=== PATIENT | female | born 1995 | race Caucasian/White ===

== ENCOUNTER 2016-06-05 23:49 | Emergency (ER) | payer OTHER ==
--- NOTE | 2016-06-05 23:54 | PDOC ---
Medical Decision Making - Medical Decision Making 06/05/16 23:54 Pt medically stable for L&D. *DC/Admit/Observation/Transfer Diagnosis at time of Disposition: Abdominal pain in - Discharge Dispostion Disposition: HOME Condition at time of disposition: Stable - Referrals Referrals: Chantel Cruz MD [Primary Care Provider] - Rubin Harris MD [Staff Physician] - (patient will maintain appt as scheduled for thu06/13/16 am patient will return to labor & delivery if regular painful contractios, water breaks, vaginal bleeding or decreased movement patient verbalizes clear understanding of all discharge instructions patient discharged to home stable intact & undelivered)
[2016-06-05 23:58] VITALS: PULSE 68; BMI 36.2
[2016-06-06] MEDS ORDERED: ELECTROLYTE-148 SOLN 500 ML IV SCH ×2 (00:05→01:05)
[2016-06-06 01:21] LABS: URINE APPEARANCE CLEAR; URINE BILIRUBIN NEGATIVE (NEGATIVE); URINE BLOOD NEGATIVE (NEGATIVE); URINE COLOR LTYELLOW; URINE GLUCOSE (UA) NEGATIVE (NEGATIVE); URINE KETONE NEGATIVE (NEGATIVE); URINE NITRITE NEGATIVE (NEGATIVE); URINE PROTEIN NEGATIVE (NEGATIVE); URINE UROBILINOGEN NEGATIVE E.U./dl (0.2-1.0)
[2016-06-06 01:23] LABS: URINE LEUK ESTERASE TRACE (NEGATIVE)
[2016-06-06 01:24] LABS: URINE MUCUS FEW; URINE RBC 1 /hpf (0-3); URINE WBC 3 /hpf (3-5)
[2016-06-06 01:39] VITALS: BP 114/63; TEMP 97.7
== END 2016-06-06 03:35 | disposition home or self-care (01) ==
LOC: JER 23:49
DX: O26.893 Other specified pregnancy related conditions, third trimester (principal); R10.30 Lower abdominal pain, unspecified; W19.XXXA Unspecified fall, initial encounter; Y93.89 Activity, other specified; Z3A.35 35 weeks gestation of pregnancy
CPT/HCPCS: 76819-TC; 81003; 81015; 87086; 99282-25

== ENCOUNTER 2016-06-28 03:05 | Inpatient (IN) | payer OTHER ==
[~2016-06-28 03:05] MED LIST: ELECTROLYTE-148 SOLN 500 ML IV ONE
[2016-06-28] MEDS ORDERED: ELECTROLYTE-148 SOLN 500 ML IV ONE (04:05)
[2016-06-28 04:35] LABS: BASOPHIL 0.2 % (0-2.0); EOSINOPHIL 0.7 % (0-4.5); MCH 25.2 pg (25.7-33.7); MEAN CELL VOLUME 78.7 fl (80-96); MEAN PLT VOLUME 10.7 fl (7.5-11.1); NEUTROPHILS 68.7 % (42.8-82.8); PLATELET COUNT 238 K/MM3 (134-434); RDW 15.1 % (11.6-15.6); WHITE BLOOD COUNT 19.2 K/mm3 (4.0-10.0)
[2016-06-28 04:48] LABS: INR 0.97 (0.82-1.09); PROTHROMBIN TIME (PATIENT) 10.7 SEC (9.98-11.88)
[2016-06-28 04:50] LABS: ACTIVATED PTT 30.1 SECONDS (26.9-34.4)
[2016-06-28 04:55] LABS: CALCIUM 9.1 mg/dL (8.5-10.1); CREATININE 0.7 mg/dL (0.55-1.02)
[2016-06-28 05:08] LABS: HIV 1 & 2 AB NEGATIVE; HIV 1 AGp24 NEGATIVE
[2016-06-28] MEDS ORDERED: AMPICILLIN 2 GM/100 ML BAG (PRE-DOCKED) IVPB ONE (06:00)
[2016-06-28] MEDS ORDERED: BUTORPHANOL TARTRATE 1 MG/ML VIAL IVPUSH ONE (06:00)
[2016-06-28 06:24] LABS: URINE APPEARANCE CLEAR; URINE BILIRUBIN NEGATIVE (NEGATIVE); URINE COLOR LTYELLOW; URINE GLUCOSE (UA) NEGATIVE (NEGATIVE); URINE KETONE NEGATIVE (NEGATIVE); URINE NITRITE NEGATIVE (NEGATIVE); URINE PROTEIN NEGATIVE (NEGATIVE); URINE UROBILINOGEN NEGATIVE E.U./dl (0.2-1.0)
[2016-06-28 06:27] LABS: URINE BLOOD 1+ (NEGATIVE); URINE LEUK ESTERASE TRACE (NEGATIVE)
[2016-06-28 06:28] LABS: URINE MUCUS RARE; URINE RBC 1 /hpf (0-3); URINE WBC 9 /hpf (3-5)
[2016-06-28] MEDS: ELECTROLYTE-148 SOLN 1,000 ML IV SCH (06:53)
[2016-06-28 07:03] VITALS: BMI 34.5
--- NOTE | 2016-06-28 08:50 | PN ---
Progress Note (short form) - Note Progress Note: 930 am cx full 100 vx 0 arom clear. fhr cat 1
--- NOTE | 2016-06-28 08:56 | HP ---
Past Medical History - Primary Care Physician PCP:: Rubin Harris - Admission Chief Complaint: 37.4 weeks, labor, GDM, diet controlled History of Present Illness: 21 yo f edc 07/15/16 in labor, cx 3 cm 80 vx -1 mi, fhr cat , GDM, diet controlled History Source: Patient Limitations to Obtaining History: Language Barrier - Past Medical History ...: 1 ...Para: 0 ...Term: 0 ...: 0 ...Spon : 0 ...Induced : 0 ...Multiple Gestation: 0 ...LMP: 10/09/15 ... Weeks Gestation by Dates: 37.4 ...EDC by Dates: 07/15/16 - Past Surgical History Hx Myomectomy: No Hx Transabdominal Cerclage: No - Smoking History Smoking history: Never smoked Have you smoked in the past 12 months: No Aproximately how many cigarettes per day: 0 - Alcohol/Substance Use Hx Alcohol Use: No - Social History History of Recent Travel: No Home Medications - Allergies Allergies/Adverse Reactions: Allergies Allergy/AdvReac Type Severity Reaction Status Date / Time No Known Allergies Allergy Verified 06/06/16 01:40 - Home Medications Home Medications: Ambulatory Orders Pnv95/Iron Fum/Folic Acid [ Caplet] 1 each PO DAILY 01/05/16 Review of Systems - Review of Systems Constitutional: reports: No Symptoms Eyes: reports: No Symptoms HENT: reports: No Symptoms Neck: reports: No Symptoms Cardiovascular: reports: No Symptoms Respiratory: reports: No Symptoms Gastrointestinal: reports: No Symptoms Genitourinary: reports: No Symptoms Breasts: reports: No Symptoms Reported Musculoskeletal: reports: Joint Pain Integumentary: reports: No Symptoms Neurological: reports: No Symptoms Endocrine: reports: No Symptoms Hematology/Lymphatic: reports: No Symptoms Psychiatric: reports: No Symptoms Physical Exam - Maternity Vital Signs: Vital Signs Temperature 98.1 F 06/28/16 08:00 Pulse Rate 62 06/28/16 08:00 Respiratory Rate 20 06/28/16 08:00 Blood Pressure 138/76 06/28/16 08:00 O2 Sat by Pulse Oximetry (%) Constitutional: Yes: Well Nourished, No Distress, Calm Eyes: Yes: WNL, Conjunctiva Clear, EOM Intact HENT: Yes: WNL, Atraumatic, Normocephalic Neck: Yes: WNL, Supple, Trachea Midline Cardiovascular: Yes: WNL, Regular Rate and Rhythm Breast(s): Yes: WNL - Abdominal Exam/OB Fundal Height: 38 Number of Fetuses: Single Presentation: Vertex Contractions: Yes Regularity: Regular Intensity: Mod/Strong Monitor Mode: External Heart Rate Location: [facility] Category: I Accelerations: Uniform Decelerations: None - Vaginal Exam/OB Vaginal Bleediing: No Amniotic Membrane Status: Intact Presentation: Vertex/Position Station: -1 - Physical Exam Extremities: Yes: WNL Edema: LLE: Trace, RLE: Trace Deep Tendon Reflex Grade: Normal +2 Psychiatric: Yes: WNL - Labs Lab Results: CBC, BMP 06/28/16 04:20 06/28/16 04:20 Hemorrhage Risk Assessment - Risk Factors Risk Score: 0 Risk Level: Low Risk Problem List - Problems (1) with 37 weeks completed gestation Code(s): Z3A.37 - 37 WEEKS GESTATION OF (2) Labor established Code(s): [id number] - (3) Gestational diabetes mellitus (GDM) Code(s): O24.419 - GESTATIONAL DIABETES MELLITUS IN , UNSP CONTROL Qualifiers: Trimester: third trimester Assessment/Plan admit for vaginal delivery, heart monitoring
[2016-06-28] MEDS ORDERED: TUBERCULIN PPD 5 TU/0.1ML SYRINGE (IN PATIENT USE ONLY) ID ONE (09:00)
[2016-06-28] MEDS ORDERED: AMPICILLIN (PRE-DOCKED) 1 GM/100 ML BAG IVPB SCH (10:00)
[2016-06-28] MEDS: IBUPROFEN 600 MG TABLET (FP) PO PRN ×3 (10:00→19:33)
[2016-06-28] MEDS ORDERED: BENZOCAINE 20% 57 GM BOTTLE TP PRN (10:45)
[2016-06-28] MEDS ORDERED: WITCH HAZEL 50% (TUCKS) 40 PAD/JAR PAD TP PRN (10:45)
[2016-06-28] MEDS ORDERED: METHYLERGONOVINE MALEATE 0.2 MG/1 ML AMP IM PRN (10:45)
[2016-06-28] MEDS ORDERED: D5W-LR W/ 20 UNITS OXYTOCIN 1,000 ML IV SCH (10:45)
[2016-06-28] MEDS ORDERED: BENZOCAINE 28 GM HEMORRHOIDAL OINTMENT TP PRN (10:45)
[2016-06-28] MEDS ORDERED: BISACODYL 10 MG SUPP.RECT RC PRN (10:45)
[2016-06-28 11:45] LABS: ARTERIAL BLOOD GAS BASE EXCESS -8.3 meq/l (-2-2); ARTERIAL BLOOD GAS HCO3 23.2 meq/L (22-26)
[2016-06-28 11:47] LABS: ARTERIAL BLOOD GAS pH 7.13 (7.35-7.45); PT. ON O2? NO
[2016-06-28 11:48] LABS: ARTERIAL BLOOD GAS PO2 13.8 mmHg (80-100)
[2016-06-28 11:49] LABS: ARTERIAL BLD GAS O2 SATURATION 12.6 % (90-98.9)
[2016-06-28] MEDS: ACETAMINOPHEN 325 MG TABLET (FP) PO PRN ×2 (14:47→19:32)
[2016-06-28] MEDS ORDERED: RHO(D) IMMUNE GLOBULIN 1,500 UNIT DISP.SYRIN IM ONE (18:58)
[2016-06-28] MEDS: FERROUS SO4 325 MG TABLET (FP) PO SCH (21:11)
[2016-06-29] MEDS: ACETAMINOPHEN 325 MG TABLET (FP) PO PRN ×5 (01:03→21:31)
[2016-06-29] MEDS: oxyCODONE HCL 5 MG TABLET PO PRN ×2 (01:04→06:37)
[2016-06-29 08:19] LABS: BASOPHIL 0.2 % (0-2.0); EOSINOPHIL 0.5 % (0-4.5); MCH 25.4 pg (25.7-33.7); MCHC 32.6 g/dl (32.0-36.0); MEAN CELL VOLUME 78.1 fl (80-96); MEAN PLT VOLUME 10.7 fl (7.5-11.1); NEUTROPHILS 76.6 % (42.8-82.8); PLATELET COUNT 182 K/MM3 (134-434); RDW 14.9 % (11.6-15.6); WHITE BLOOD COUNT 18.9 K/mm3 (4.0-10.0)
[2016-06-29] MEDS: FERROUS SO4 325 MG TABLET (FP) PO SCH ×2 (09:26→21:30)
[2016-06-29] MEDS: PRENATAL VITAMINS W/ FOLIC ACID TABLET (FP) PO SCH (09:26)
--- NOTE | 2016-06-29 09:31 | PN ---
Delivery - Delivery Vaginal Delivery: Spontaneous (cx fully dilated , head on perinium, head deliverd , nasopharynx suctioned , ant and post shoulder with no dfficulty, live baby boy.placenta spont. 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
--- NOTE | 2016-06-29 09:34 | PN ---
Progress Note (short form) - Note Progress Note: ppd 1doing well, no c/o. voids ok, no excess vaginal bleeding CBC, BMP 06/29/16 07:00 06/28/16 04:20 Last Vital Signs Temp Pulse Resp BP Pulse Ox 98.2 F 63 18 117/72 06/29/16 05:31 06/29/16 05:31 06/29/16 05:31 06/29/16 05:31 uterus firm, non tender lochia mild no calf tenderness plan ambulate, iron ,vit Problem List - Problems (1) with 37 weeks completed gestation Code(s): Z3A.37 - 37 WEEKS GESTATION OF (2) Labor established Code(s): BON6557 - (3) Gestational diabetes mellitus (GDM) Code(s): O24.419 - GESTATIONAL DIABETES MELLITUS IN , UNSP CONTROL Qualifiers: Trimester: third trimester
[2016-06-29] MEDS: IBUPROFEN 600 MG TABLET (FP) PO PRN ×3 (10:33→21:31)
[2016-06-29 11:43] VITALS: PULSE 71
[2016-06-29] MEDS ORDERED: SENNOSIDES/DOCUSATE COMBO (SENNA PLUS) TABLET (UD) PO PRN (22:00)
[2016-06-30] MEDS: IBUPROFEN 600 MG TABLET (FP) PO PRN ×2 (02:18→10:46)
[2016-06-30] MEDS: ACETAMINOPHEN 325 MG TABLET (FP) PO PRN ×2 (02:20→10:45)
--- NOTE | 2016-06-30 08:04 | DS ---
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 Signs: Vital Signs Temperature 98.5 F 06/29/16 22:00 Pulse Rate 71 06/29/16 22:00 Respiratory Rate 20 06/29/16 22:00 Blood Pressure 135/70 06/29/16 22:00 O2 Sat by Pulse Oximetry (%) Constitutional: Yes: Well Nourished, No Distress, Calm Eyes: Yes: WNL, Conjunctiva Clear, EOM Intact HENT: Yes: WNL, Atraumatic, Normocephalic Neck: Yes: WNL, Supple, Trachea Midline Cardiovascular: Yes: WNL, Regular Rate and Rhythm Respiratory: Yes: WNL, Regular, CTA Bilaterally Gastrointestinal: Yes: WNL ...Rectal Exam: Yes: WNL Renal/: Yes: WNL ....Post : Yes: Uterus firm, Uterus non-tender, Slight lochia rubra Breast(s): Yes: WNL Musculoskeletal: Yes: WNL Extremities: Yes: WNL Edema: No Integumentary: Yes: WNL Wound/Incision: Yes: Clean/Dry, Well Approximated Neurological: Yes: WNL, Alert, Oriented ...Motor Strength: WNL Psychiatric: Yes: WNL, Alert, Oriented Labs: CBC, BMP 06/29/16 07:00 06/28/16 04:20 Delivery - Delivery Vaginal Delivery: Spontaneous (cx fully dilated , head on perinium, head deliverd , nasopharynx suctioned , ant and post shoulder with no dfficulty, live baby boy.placenta spont. 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 Present: Yes Name: Cristina Hammonds Infant Gender: Male Position: Left, OA Total Hours ROM (Hrs/Mins): 1H - 1 Minute Total Score: 9 5 Minutes Total Score: 9 - Feeding Plan Initial Plan: Elected not to breastfeed exclusively throughout hospitalization Discharge Summary Reason For Visit: LABOR ADMIT Current Active Problems Gestational diabetes mellitus (GDM) (Acute) Labor established (Acute) with 37 weeks completed gestation (Acute) Procedures: Principal: , median episiotomy repair Condition: Good - Instructions Diet, Activity, Other Instructions: regular diet, if heavy bleeding, pain, fever call MD, no intercourse, follow up office 4 weeks Referrals: Rubin Harris MD [Staff Physician] - Disposition: HOME - Home Medications Comprehensive Discharge Medication List: Ambulatory Orders Pnv95/Iron Fum/Folic Acid [ Caplet] 1 each PO DAILY 01/05/16 Ibuprofen [Motrin -] 600 mg PO QID #28 tablet 06/29/16 Docusate Sodium [Dulcolax Stool Softener] 100 mg PO BID PRN #60 capsule MDD 2
[2016-06-30] MEDS: ELECTROLYTE-148 SOLN 1,000 ML IV SCH (09:30)
[2016-06-30] MEDS: PRENATAL VITAMINS W/ FOLIC ACID TABLET (FP) PO SCH (09:32)
[2016-06-30] MEDS: FERROUS SO4 325 MG TABLET (FP) PO SCH (09:32)
[2016-06-30 10:36] VITALS: BP 130/74; TEMP 98
== END 2016-06-30 11:25 | disposition home or self-care (01) | DRG 560 ==
LOC: JDEL 03:05 → JLDR 06:00 → J3W 11:21
PROVIDERS: ADMIT Obstetrics & Gynecology; ATTEND Obstetrics & Gynecology
PROC: 0W8NXZZ Division of Female Perineum, External Approach (ICD-10-PCS; principal; 2016-06-27)
PROC: 10E0XZZ Delivery of Products of Conception, External Approach (ICD-10-PCS; 2016-06-27)
PROC: 30233S1 Transfusion of Nonautologous Globulin into Peripheral Vein, Percutaneous Approach (ICD-10-PCS; 2016-06-29)
DX: O24.429 Gestational diabetes mellitus in childbirth, unspecified control (principal); Z3A.37 37 weeks gestation of pregnancy; Z37.0 Single live birth
CPT/HCPCS: 36415; 36600; 59025; 59409; 80048; 81003; 81015; 82803; 85025; 85461; 85610; 85730; 86593; 86850; 86900; 86901; 86999; 87389

== ENCOUNTER 2016-07-10 15:20 | Emergency (ER) | payer OTHER ==
[2016-07-10 15:39] VITALS: BP 126/82; PULSE 64; TEMP 97.7; BMI 32.0
--- NOTE | 2016-07-10 17:16 | PDOC ---
History of Present Illness - General Chief Complaint: Pain, Acute Stated Complaint: PAIN Time Seen by Provider: 07/10/16 16:01 History Source: Patient Exam Limitations: No Limitations - History of Present Illness Initial Comments: 07/10/16 17:11 21-year-old female status post vaginal delivery 2 weeks ago with episiotomy complaining of discomfort at the episiotomy site causing her difficulty sitting. Patient states had no follow-up appointment with her FISH HOUSE WORKER yet and decided come to the ER secondary to discomfort. Patient denies fever, chills, swelling, increased discharge to the area. Patient denies history of diabetes or immunosuppression. Patient also denies dysuria and abdominal pain. Timing/Duration: other Severity: mild Associated Symptoms: reports: denies symptoms Past History - Past Medical History Allergies/Adverse Reactions: Allergies Allergy/AdvReac Type Severity Reaction Status Date / Time No Known Allergies Allergy Verified 07/10/16 15:39 Home Medications: Ambulatory Orders Pnv95/Iron Fum/Folic Acid [ Caplet] 1 each PO DAILY 01/05/16 Ibuprofen [Motrin -] 600 mg PO QID #28 tablet 06/29/16 Docusate Sodium [Dulcolax Stool Softener] 100 mg PO BID PRN #60 capsule MDD 2 Asthma: No Cancer: No Cardiac Disorders: No Diabetes: Yes (gestational diabetes diet controlled) HTN: No Seizures: No Thyroid Disease: No - Reproductive History Is Patient Now?: No (#): 1 Para: 0 Spontaneous : 0 - Immunization History Immunization Up to Date: Yes - Psycho/Social/Smoking Cessation Hx Anxiety: No Suicidal Ideation: No Smoking Status: No Smoking History: Never smoked Have you smoked in the past 12 months: No Number of Cigarettes Smoked Daily: 0 Hx Alcohol Use: No Drug/Substance Use Hx: No Substance Use Type: None Hx Substance Use Treatment: No Patient Lives Alone: No Lives with/in: spouse/SO Review of Systems - Review of Systems Able to Perform ROS?: Yes Constitutional: No: Symptoms Reported Respiratory: No: Symptoms reported ABD/GI: No: Symptoms Reported : No: Symptoms Reported Musculoskeletal: No: Symptoms Reported Integumentary: Yes: Other Endocrine: No: Symptoms Reported *Physical Exam - Vital Signs Last Vital Signs Temp Pulse Resp BP Pulse Ox 97.7 F 64 18 126/82 07/10/16 15:34 07/10/16 15:34 07/10/16 15:34 07/10/16 15:34 - Physical Exam General Appearance: Yes: Nourished, Appropriately Dressed. No: Apparent Distress HEENT: negative: Pale Conjunctivae Female Pelvic Exam: positive: normal external exam (patient with noted multiple loose sutures to the perineal region. Patient also with intact sutures to the perineal area. ), vaginal bleeding (mild reddish brown) Gastrointestinal/Abdominal: positive: Soft. negative: Tenderness Integumentary: positive: Normal Color, Warm, Moist. negative: Erythema, Swelling Neurologic: positive: Motor Strength 5/5 (ambulatory) Medical Decision Making - Medical Decision Making 07/10/16 17:15 Patient sent here for fast track for evaluation of episiotomy pain. Patient on exam had multiple loose sutures to the perineal area that I removed with a gauze. I then remove 2 sutures to the posterior aspect of vaginal opening secondary intact healed skin surrounding sutures. 3 sutures were left in place between the vaginal and rectal opening due to noted moisture and incomplete healed area. No sign of infection including discharge redness or swelling. Patient will be discharged home with recommendations to allow air to the area where loosefitting clothing and to clean area using soap since she states has not cleansed the area except for allow water to run between her legs during showers. *DC/Admit/Observation/Transfer Diagnosis at time of Disposition: Episiotomy pain - Discharge Dispostion Disposition: HOME Condition at time of disposition: Improved - Patient Instructions Printed Discharge Instructions: DI for Episiotomy Additional Instructions: Leave open to air since her bleeding is minimal to promote proper healing. May take Tylenol for discomfort. Wear loosefitting clothing and follow-up with FISH HOUSE WORKER as needed
--- NOTE | 2016-07-10 17:28 | PDOC ---
*Physical Exam - Vital Signs Last Vital Signs Temp Pulse Resp BP Pulse Ox 97.7 F 64 18 126/82 07/10/16 15:34 07/10/16 15:34 07/10/16 15:34 07/10/16 15:34 - Physical Exam Comments: 07/10/16 17:28 The patient was examined by [EDITOR MAP Cari] under my direct supervision. I personally evaluated the patient. I concur with the above findings and the plan of care. *DC/Admit/Observation/Transfer Diagnosis at time of Disposition: Episiotomy pain - Discharge Dispostion Disposition: HOME Condition at time of disposition: Improved - Referrals Referrals: Chantel Cruz MD [Primary Care Provider] - - Patient Instructions Printed Discharge Instructions: DI for Episiotomy Additional Instructions: Leave open to air since her bleeding is minimal to promote proper healing. May take Tylenol for discomfort. Wear loosefitting clothing and follow-up with [facility] [employer] [employer]OR [employer] as needed - Post Discharge Activity
== END 2016-07-10 17:23 | disposition home or self-care (01) ==
LOC: JER 15:20
DX: O90.1 Disruption of perineal obstetric wound (principal)
CPT/HCPCS: 99281-25

== ENCOUNTER 2016-12-28 18:30 | Emergency (ER) | payer OTHER ==
[2016-12-28 18:35] VITALS: BP 120/65; PULSE 79; TEMP 97.7; BMI 30.7
--- NOTE | 2016-12-28 19:24 | PDOC ---
History of Present Illness - General Chief Complaint: Cold Symptoms Stated Complaint: HEADACHE Time Seen by Provider: 12/28/16 18:49 History Source: Patient Exam Limitations: No Limitations - History of Present Illness Initial Comments: 12/28/16 19:15 Patient is a 21-year-old female, no significant medical history currently on no medication presents for evaluation of generalized pain, right-sided headache, sore throat. Patient with chronic sinusitis on right side recently patient reports having a procedure to decrease inflammation to right sinus. She denies any fever, denies any anorexia. No nausea vomiting or diarrhea. + photophobia, intermittent, No neurosensory deficit. No chest pain or shortness of breath. Past Medical History: [Denies]. Allergies: No known allergies Medications: [None] Family History: Non-contributory Social History: Denies smoking, alcohol use, or IVDU Review of Systems GENERAL/CONSTITUTIONAL: [No fever or chills. Weakness. No weight change. Generalized muscle pain] HEAD, EYES, EARS, NOSE AND THROAT: [No change in vision. No ear pain or discharge. Sore throat. ] CARDIOVASCULAR: [No chest pain or shortness of breath.] RESPIRATORY: [No cough, wheezing, or hemoptysis.] GASTROINTESTINAL: [No nausea, vomiting, diarrhea or constipation. No rectal bleeding.] GENITOURINARY: [No dysuria, frequency, or change in urination.] MUSCULOSKELETAL: [No joint or muscle swelling or pain. No neck or back pain.] SKIN AND BREASTS: [No rash or easy bruising.] NEUROLOGIC: [Right sided headache, vertigo, loss of consciousness, or loss of sensation.] PSYCHIATRIC: [No depression or anxiety.] ENDOCRINE: [No increased thirst. No abnormal weight change.] HEMATOLOGIC/LYMPHATIC: [No anemia, easy bleeding, or history of blood clots.] ALLERGIC/IMMUNOLOGIC: [No hives or skin allergy. No latex allergy.] Physical Exam: GENERAL: [The patient is awake, alert, and fully oriented, in no acute distress. ] HEAD: [Normal with no signs of trauma.] EYES: [Pupils equal, round and reactive to light, extraocular movements intact, sclera anicteric, conjunctiva clear. No Nystagmus, positive photophobia. ] ENT: [Ears normal, nares patent, oropharynx clear without exudates. Moist mucous membranes. No uvula deviation] NECK: [Normal range of motion, supple without lymphadenopathy, JVD, or masses.] LUNGS: [Breath sounds equal, clear to auscultation bilaterally. No wheezes, and no crackles.] HEART: [Regular rate and rhythm, normal S1 and S2 without murmur, rub or gallop. ] ABDOMEN: [Soft, nontender, normoactive bowel sounds. No guarding, no rebound. No masses. No bruising or abrasions] MUSCULOSKELETAL: [Normal range of motion, no edema. No clubbing or cyanosis. No cords, erythema, or tenderness. No CVA Tenderness with fist.] NEUROLOGICAL: [Cranial nerves II through XII grossly intact. Normal speech, normal gait.] SKIN: [Pale, Warm, Dry, normal turgor, no rashes or lesions noted.] 12/28/16 20:48 Past History - Past Medical History Allergies/Adverse Reactions: Allergies Allergy/AdvReac Type Severity Reaction Status Date / Time No Known Allergies Allergy Verified 12/28/16 18:34 Home Medications: Ambulatory Orders Amoxicillin/Potassium Clav [Augmentin 875-125 Tablet] 1 each PO BID #14 tablet 12/28/16 Fluticasone Prop 0.05% Nasal [Flonase -] 1 - 2 spray NS DAILY #1 spray.pump Asthma: No Cancer: No Cardiac Disorders: No COPD: No Diabetes: No HTN: No Seizures: No Thyroid Disease: No - Reproductive History (#): 1 Para: 0 Spontaneous : 0 - Immunization History Immunization Up to Date: Yes - Suicide/Smoking/Psychosocial Hx Smoking Status: No Smoking History: Never smoked Have you smoked in the past 12 months: No Number of Cigarettes Smoked Daily: 0 Hx Alcohol Use: No Drug/Substance Use Hx: No Substance Use Type: None Hx Substance Use Treatment: No *Physical Exam - Vital Signs Last Vital Signs Temp Pulse Resp BP Pulse Ox 97.7 F 79 20 120/65 100 12/28/16 18:31 12/28/16 18:31 12/28/16 18:31 12/28/16 18:31 12/28/16 18:31 Medical Decision Making - Medical Decision Making 12/28/16 19:24 A/P: Patient with generalized weakness, generalized muscle pain, right-sided headache sore throat. Clinical signs highly suspicious for influenza versus sinusitis.; We will send a rapid strep, influenza, if both negative consider CT scan head 12/28/16 19:47 Rapid strep and rapid influenza negative, urine sent will perform head CT 12/28/16 21:24 CT of the head showed no intra-or extra-axial hemorrhage or collection, no mass lesion or midline shift. There is mild mucoperiosteal thickening in the visualized left maxillary sinus and ethmoid air cells the remaining paranasal sinuses and mastoid air cells are clear. Patient still complaining of generalized pain, throat pain, increased headache on the right side Plan: Monoscreen 1LNS Reglan Benadryl Toradol 30 mg IM 1, monoscreen will not return this evening patient will have to call for results in a.m. We'll DC patient home after saline is infused. 12/28/16 22:00 12/28/16 22:25 Patient reports that she feels a lot better we'll DC patient home, Motrin as needed for pain, to call in the morning for results of monoscreen. I discussed the physical exam findings, ancillary test results and final diagnoses with the patient. I answered all of the patient's questions. The patient was satisfied with the care received and felt comfortable with the discharge plan and treatment plan. The patient will call to arrange follow-up and will return to the Emergency Department with any new, persistent or worsening symptoms. *DC/Admit/Observation/Transfer Diagnosis at time of Disposition: Headache Qualifiers: Headache type: unspecified Headache chronicity pattern: acute headache Intractability: not intractable Qualified Code(s): R51 - Headache Sinusitis Qualifiers: Sinusitis location: maxillary Chronicity: acute Recurrence: non-recurrent Qualified Code(s): J01.00 - Acute maxillary sinusitis, unspecified - Discharge Dispostion Disposition: HOME Condition at time of disposition: Stable Admit: No - Prescriptions Prescriptions: Amoxicillin/Potassium Clav [Augmentin 875-125 Tablet] 1 each PO BID #14 tablet Fluticasone Prop 0.05% Nasal [Flonase -] 1 - 2 spray NS DAILY #1 spray.pump - Referrals Referrals: Jasper George MD [Primary Care Provider] - - Patient Instructions Additional Instructions: Increase fluids, recommend follow-up with ENT if symptoms persist Please call tomorrow [phone] for results of monoscreen if Jessamine is positive please do not take any Motrin or Advil or Aleve and refrain from strenuous physical activity until cleared by your primary care doctor. - Post Discharge Activity Forms/Work/School Notes: Back to Work
[2016-12-28] MEDS ORDERED: KETOROLAC TROMETHAMINE 60 MG/2 ML VIAL ONE (21:23)
[2016-12-28] MEDS ORDERED: METOCLOPRAMIDE HCL INJECTION 10 MG/2 ML VIAL IVPUSH ONE (21:28)
[2016-12-28] MEDS ORDERED: SODIUM CHLORIDE 0.9% 1000 ML INFUS.BAG IV ONE (21:37)
[2016-12-28] MEDS ORDERED: METOCLOPRAMIDE HCL INJECTION 10 MG/2 ML VIAL ONE (21:47)
[2016-12-28] MEDS ORDERED: KETOROLAC TROMETHAMINE 60 MG/2 ML VIAL IVPUSH ONE (22:00)
== END 2016-12-28 22:37 | disposition home or self-care (01) ==
LOC: JERFT 18:30
PROC: 3E0333Z Introduction of Anti-inflammatory into Peripheral Vein, Percutaneous Approach (ICD-10-PCS; principal; 2016-12-28)
PROC: 3E033GC Introduction of Other Therapeutic Substance into Peripheral Vein, Percutaneous Approach (ICD-10-PCS; 2016-12-28)
PROC: 3E033GC Introduction of Other Therapeutic Substance into Peripheral Vein, Percutaneous Approach (ICD-10-PCS; 2016-12-28)
DX: J01.00 Acute maxillary sinusitis, unspecified (principal)
CPT/HCPCS: 36415; 70450-TC; 84703; 86308; 87070; 87430; 87804; 96374; 96375; 99281-25

== ENCOUNTER 2017-03-13 12:45 | Emergency (ER) | payer SELFPAY ==
[2017-03-13 13:11] VITALS: BP 120/60; PULSE 71; TEMP 98.2; BMI 31.6
--- NOTE | 2017-03-13 13:49 | PDOC ---
History of Present Illness - General Chief Complaint: Cold Symptoms Stated Complaint: COLD Time Seen by Provider: 03/13/17 13:28 History Source: Patient - History of Present Illness Associated Symptoms: reports: cough, fever/chills, muscle aches, sore throat. denies: earache, facial pain, headache, nasal congestion, nasal drainage Past History - Past Medical History Allergies/Adverse Reactions: Allergies Allergy/AdvReac Type Severity Reaction Status Date / Time No Known Allergies Allergy Verified 03/13/17 13:11 Home Medications: Ambulatory Orders NK [No Known Home Medication] 03/13/17 Asthma: No Cancer: No Cardiac Disorders: No COPD: No Diabetes: No HTN: No Seizures: No Thyroid Disease: No - Reproductive History (#): 1 Para: 0 Spontaneous : 0 - Immunization History Immunization Up to Date: Yes - Suicide/Smoking/Psychosocial Hx Smoking Status: No Smoking History: Never smoked Have you smoked in the past 12 months: No Number of Cigarettes Smoked Daily: 0 Information on smoking cessation initiated: No Hx Alcohol Use: No Drug/Substance Use Hx: No Substance Use Type: None Hx Substance Use Treatment: No Review of Systems - Review of Systems Constitutional: Yes: Chills, Fever, Malaise HEENTM: Yes: Throat Pain. No: Ear Pain Respiratory: Yes: Cough. No: Shortness of Breath ABD/GI: No: Diarrhea, Vomiting *Physical Exam - Vital Signs Last Vital Signs Temp Pulse Resp BP Pulse Ox 98.2 F 71 18 120/60 100 03/13/17 13:09 03/13/17 13:09 03/13/17 13:09 03/13/17 13:09 03/13/17 13:09 - Physical Exam General Appearance: Yes: Appropriately Dressed. No: Apparent Distress HEENT: positive: Normal ENT Inspection, Normal Voice. negative: Scleral Icterus (R), Scleral Icterus (L) Neck: positive: Supple. negative: Lymphadenopathy (R), Lymphadenopathy (L) Respiratory/Chest: positive: Lungs Clear, Normal Breath Sounds. negative: Respiratory Distress Cardiovascular: positive: Regular Rate, S1, S2 Integumentary: positive: Dry, Warm Neurologic: positive: Fully Oriented, Alert, Normal Mood/Affect Medical Decision Making - Medical Decision Making 03/13/17 14:08 21-year-old female, no significant history here with dry cough with sore throat , body aches, malaise and subjective fever 1 week. States fever has since resolved. No shortness of breath, vomiting or diarrhea. States she went to the ER and was ro for the flu. Wants to be re-evaluated today per pt. here is uncomfortable but stable with unremarkable exam otherwise. Flu test pending. Pain control in ED *DC/Admit/Observation/Transfer Diagnosis at time of Disposition: Viral syndrome - Discharge Dispostion Disposition: HOME Condition at time of disposition: Good - Referrals Referrals: Jasper George MD [Primary Care Provider] - - Patient Instructions Printed Discharge Instructions: DI for Viral Syndrome Additional Instructions: You have a viral illness. Flu test was negative. Rest and plenty of fluids and take Motrin or Tylenol for pain or fever - Post Discharge Activity Forms/Work/School Notes: Back to Work
[2017-03-13] MEDS ORDERED: IBUPROFEN 400 MG TABLET (FP) PO ONE ×2 (14:08→14:12)
--- NOTE | 2017-03-13 14:41 | PDOC ---
*Physical Exam - Vital Signs Last Vital Signs Temp Pulse Resp BP Pulse Ox 98.2 F 71 18 120/60 100 03/13/17 13:09 03/13/17 13:09 03/13/17 13:09 03/13/17 13:09 03/13/17 13:09 ED Treatment Course - ADDITIONAL ORDERS Additional order review: 03/13/17 14:10 Influenza Types A,B Antigen (TRISTA) - Preliminary Nasopharyngeal Swab - Preliminary - Medications Given in the ED: ED Medications Discontinued Medications Generic Name Dose Route Start Last Admin Trade Name Lanette PRN Reason Stop Dose Admin Ibuprofen 800 mg 03/13/17 14:08 03/13/17 14:14 Motrin - PO 03/13/17 14:09 800 mg ONCE ONE Administration *DC/Admit/Observation/Transfer Diagnosis at time of Disposition: Viral syndrome - Discharge Dispostion Disposition: HOME Condition at time of disposition: Good - Prescriptions Prescriptions: Benzonatate [Tessalon Pearls -] 100 mg PO TID #21 capsule - Referrals Referrals: Jasper George MD [Primary Care Provider] - - Patient Instructions Printed Discharge Instructions: DI for Viral Syndrome Additional Instructions: You have a viral illness. Flu test was negative. Rest and plenty of fluids and take Motrin or Tylenol for pain or fever - Post Discharge Activity Forms/Work/School Notes: Back to Work
== END 2017-03-13 14:41 | disposition home or self-care (01) ==
LOC: JERFT 12:45
DX: B34.9 Viral infection, unspecified (principal)
CPT/HCPCS: 87804; 99281-25

== ENCOUNTER 2017-03-26 01:26 | Emergency (ER) | payer SELFPAY ==
[2017-03-26 02:52] VITALS: BMI 31.4
[2017-03-26] MEDS ORDERED: SODIUM CHLORIDE 1,000 ML IV STA ×2 (03:49→06:59)
[2017-03-26] MEDS ORDERED: KETOROLAC TROMETHAMINE 15 MG/ML VIAL IVPUSH ONE (03:49)
[2017-03-26] MEDS ORDERED: TAMSULOSIN HCL 0.4 MG CAP.ER.24H (FP) PO ONE (03:50)
[2017-03-26] MEDS ORDERED: ACETAMINOPHEN 1000 MG/100 ML VIAL (NON FORMULARY) IVPB ONE (04:17)
[2017-03-26 04:26] LABS: URINE APPEARANCE CLOUDY; URINE BILIRUBIN NEGATIVE (NEGATIVE); URINE BLOOD 3+ (NEGATIVE); URINE COLOR YELLOW; URINE GLUCOSE (UA) NEGATIVE (NEGATIVE); URINE KETONE NEGATIVE (NEGATIVE); URINE LEUK ESTERASE TRACE (NEGATIVE); URINE NITRITE NEGATIVE (NEGATIVE); URINE UROBILINOGEN NEGATIVE mg/dL (0.2-1.0)
[2017-03-26 04:32] LABS: URINE PROTEIN 1+ (NEGATIVE)
--- NOTE | 2017-03-26 04:33 | PDOC ---
Attending Attestation - HPI HPI: 03/26/17 04:33 The patient is a 21 year old female, with no significant past medical history, who presents to the emergency department with left flank pain radiating to her left groin for about 3 days with hematuria for one day. She denies a prior history of kidney stones. The patient denies chest pain, shortness of breath, headache and dizziness. The patient denies fever, chills, nausea, vomit, diarrhea and constipation. The patient denies dysuria, frequency, urgency. Allergies: NKDA - Medical Decision Making 03/26/17 04:34 Documentation prepared by Edel Schaefer, acting as medical scheduler for Napoleon Raymonlefty DO <Edel Schaefer - Last Filed: 03/26/17 04:33> - Resident Resident Name: Geovanny Smalls - ED Attending Attestation I have performed the following: I have examined & evaluated the patient, The case was reviewed & discussed with the resident, I agree w/resident's findings & plan, Exceptions are as noted - Physicial Exam PE: 03/26/17 19:19 Physical Exam General Appearance: Yes: Appropriately Dressed. mild distress No: Intoxicated HEENT: positive: EOMI, MINDY, Normal ENT Inspection, Normal Voice, TMs Normal, Pharynx Normal. negative: Pale Conjunctivae, Photophobia, Scleral Icterus (R), Scleral Icterus (L) Neck: positive: Trachea midline, Normal Thyroid, Supple. negative: Tender, Rigid, Carotid bruit, Stridor, Lymphadenopathy (R), Lymphadenopathy (L), Thyromegaly Respiratory/Chest: positive: Lungs Clear, Normal Breath Sounds. negative: Chest Tender, Respiratory Distress, Accessory Muscle Use, Labored Respiration, RES, Crackles, Rales, Rhonchi, Stridor, Wheezing, Dullness Cardiovascular: positive: Regular Rhythm, Regular Rate, S1, S2. negative: Edema , JVD, Murmur, Bradycardia, Tachycardia Vascular Pulses: Dorsalis-Pedis (R): 2+, Doralis-Pedis (L): 2+ Gastrointestinal/Abdominal: positive: Normal Bowel Sounds, Flat, Soft. negative : Tender, Organomegaly, Pulsatile Mass, Increased Bowel Sounds, Decreased BS, Distended, Guarding, Rebound, Hernia, Hepatomegaly, Spleenomegaly Lymphatic: negative: Adenopathy, Tenderness Musculoskeletal: positive: Normal Inspection.Left CVA tenderness negative: Decreased Range of Motion Extremity: positive: Normal Capillary Refill, Normal Inspection, Normal Range of Motion, Pelvis Stable. negative: Tender, Pedal Edema, Swelling, Erythema Integumentary: positive: Normal Color, Dry, Warm. negative: Cyanotic, Erythema , Jaundice, Rash Neurologic: positive: manager of hospital II-XII NML intact, Fully Oriented, Alert, Normal Mood/ Affect, Motor Strength 5/5. negative: EOM Palsy, Facial Droop, Sensory Deficit <Napoleon Guzman - Last Filed: 03/26/17 19:20>
[2017-03-26 04:36] LABS: CALCIUM OXALATE CRYSTALS FEW /hpf (NONE SEEN); EPI CELLS MODERATE /HPF (FEW); URINE BACTERIA FEW /hpf (NONE SEEN); URINE MUCUS RARE
[2017-03-26] MEDS ORDERED: TAMSULOSIN HCL 0.4 MG CAP.ER.24H (FP) ONE (04:36)
[2017-03-26] MEDS ORDERED: KETOROLAC TROMETHAMINE 15 MG/ML VIAL ONE (04:37)
[2017-03-26 04:51] LABS: ALBUMIN 3.6 g/dl (3.4-5.0); ANION GAP 7 (8-16); BLOOD UREA NITROGEN 12 mg/dL (7-18); CALCIUM 8.8 mg/dL (8.5-10.1); CHLORIDE 104 mmol/L (98-107); CO2 27 mmol/L (21-32); CREATININE 0.6 mg/dL (0.55-1.02); GLUCOSE,RANDOM 107 mg/dL (74-106); POTASSIUM 4.4 mmol/L (3.5-5.1); SGOT/AST 12 U/L (15-37); SGPT/ALT 24 U/L (12-78); SODIUM 138 mmol/L (136-145)
[2017-03-26 04:53] LABS: ALK PHOS 149 U/L (45-117); BILIRUBIN,TOTAL 0.4 mg/dL (0.2-1.0); TOT PROT 7.7 g/dl (6.4-8.2)
[2017-03-26 04:57] LABS: BASO % 0.4 % (0-2.0); EOS % 0.3 % (0-4.5); HEMATOCRIT 37.9 % (32.4-45.2); HEMOGLOBIN 11.9 GM/dL (10.7-15.3); MCH 23.8 pg (25.7-33.7); MCHC 31.3 g/dl (32.0-36.0); MEAN CELL VOLUME 75.9 fl (80-96); MEAN PLT VOLUME 9.4 fl (7.5-11.1); MONO % 4.3 % (3.8-10.2); PLATELET COUNT 351 K/MM3 (134-434); RDW 16.2 % (11.6-15.6)
--- NOTE | 2017-03-26 05:33 | PDOC ---
History of Present Illness - General Chief Complaint: Pain, Acute Stated Complaint: ABD PAIN Time Seen by Provider: 03/26/17 03:27 History Source: Patient Exam Limitations: No Limitations - History of Present Illness Initial Comments: 03/26/17 05:30 21F with no pmh presents with L flank pain radiating to the groin for the past 3 days and hematuria since today. Couple episodes of vomiting. No history of kidney stones. Past History - Past Medical History Allergies/Adverse Reactions: Allergies Allergy/AdvReac Type Severity Reaction Status Date / Time No Known Allergies Allergy Verified 03/26/17 02:47 Home Medications: Ambulatory Orders Benzonatate [Tessalon Pearls -] 100 mg PO TID #21 capsule 03/13/17 Asthma: No Cancer: No Cardiac Disorders: No COPD: No Diabetes: No HTN: No Seizures: No Thyroid Disease: No - Reproductive History (#): 1 Para: 0 Spontaneous : 0 - Immunization History Immunization Up to Date: Yes - Suicide/Smoking/Psychosocial Hx Smoking Status: No Smoking History: Never smoked Have you smoked in the past 12 months: No Number of Cigarettes Smoked Daily: 0 Information on smoking cessation initiated: No Hx Alcohol Use: No Drug/Substance Use Hx: No Substance Use Type: None Hx Substance Use Treatment: No Review of Systems - Review of Systems Able to Perform ROS?: Yes Is the patient limited Kosovan proficient: No Constitutional: No: Symptoms Reported HEENTM: No: Symptoms Reported Respiratory: No: Symptoms reported Cardiac (ROS): No: Symptoms Reported ABD/GI: No: Symptoms Reported : Yes: See HPI, Flank Pain, Hematuria Musculoskeletal: No: Symptoms Reported Integumentary: No: Symptoms Reported Neurological: No: Symptoms reported All Other Systems: Reviewed and Negative *Physical Exam - Vital Signs Last Vital Signs Temp Pulse Resp BP Pulse Ox 97.9 F 65 14 123/64 100 03/26/17 02:47 03/26/17 02:47 03/26/17 02:47 03/26/17 02:47 03/26/17 02:47 - Physical Exam General Appearance: Yes: Nourished, Appropriately Dressed. No: Apparent Distress HEENT: positive: EOMI, MINDY, Normal ENT Inspection Neck: positive: Trachea midline. negative: Tender Respiratory/Chest: positive: Lungs Clear, Normal Breath Sounds. negative: Chest Tender, Respiratory Distress Cardiovascular: positive: Regular Rhythm, Regular Rate, S1, S2 Neurologic: positive: Fully Oriented, Alert, Normal Mood/Affect, Normal Response , Motor Strength 06/13 ED Treatment Course - LABORATORY CBC & Chemistry Diagram: 03/26/17 03:29 03/26/17 04:13 - ADDITIONAL ORDERS Additional order review: Laboratory Results 03/26/17 03/26/17 04:13 04:13 Sodium 138 Potassium 4.4 Chloride 104 Carbon Dioxide 27 Anion Gap 7 L BUN 12 Creatinine 0.6 Creat Clearance w eGFR > 60 Random Glucose 107 H Calcium 8.8 Total Bilirubin 0.4 AST 12 L ALT 24 Alkaline Phosphatase 149 H Total Protein 7.7 Albumin 3.6 Urine Color Yellow Urine Appearance Cloudy Urine pH 6.0 Ur Specific [place] 1.016 Urine Protein 1+ H Urine Glucose (UA) Negative Urine Ketones Negative Urine Blood 3+ H Urine Nitrite Negative Urine Bilirubin Negative Urine Urobilinogen Negative Ur Leukocyte Esterase Trace Urine WBC (Auto) 126 Urine RBC (Auto) 1819 Ur Epithelial Cells Moderate Calcium Oxalate Crystal Few Urine Bacteria Few Urine Mucus Rare 03/26/17 03:29 RBC 5.00 D MCV 75.9 L MCHC 31.3 L RDW 16.2 H MPV 9.4 D Neutrophils % 80.0 Lymphocytes % 15.0 Monocytes % 4.3 Eosinophils % 0.3 Basophils % 0.4 - RADIOLOGY Radiology Studies Ordered: Category Date Time Status ABDOMEN & PELVIS CT W/O CONTR [CT] Stat CT Scan 03/26/17 04:38 Ordered - Medications Given in the ED: ED Medications Discontinued Medications Generic Name Dose Route Start Last Admin Trade Name Freq PRN Reason Stop Dose Admin Sodium Chloride 1,000 mls @ 1,000 mls/hr 03/26/17 03:49 03/26/17 05:03 Normal Saline - IV 03/26/17 04:48 1,000 mls/hr ASDIR STA Administration Ketorolac Tromethamine 15 mg 03/26/17 03:49 03/26/17 04:43 Toradol Injection - IVPUSH 03/26/17 03:50 15 mg ONCE ONE Administration Tamsulosin HCl 0.8 mg 03/26/17 03:50 03/26/17 04:43 Flomax - PO 03/26/17 03:51 0.8 mg ONCE ONE Administration Medical Decision Making - Medical Decision Making 03/26/17 05:35 21F presents with likely let nephrolithiasis. Preg negative. All labs negative. Will Confirm [facility] CT scan 03/26/17 06:28 5mm kidney stones in right UPJ with mild hydronephrosis. 03/26/17 07:03 Stone still not passed. Patient given additional bolus of fluid and percocet. Patient signed out to Dr. Chambers *DC/Admit/Observation/Transfer Diagnosis at time of Disposition: Right nephrolithiasis - Referrals Referrals: Jasper George MD [Primary Care Provider] - - Patient Instructions - Post Discharge Activity
[2017-03-26 05:35] LABS: HCG,QUALITATIVE URINE NEGATIVE
--- NOTE | 2017-03-26 07:29 | PDOC ---
*Physical Exam - Vital Signs Last Vital Signs Temp Pulse Resp BP Pulse Ox 98.5 F 66 18 107/57 99 03/26/17 06:06 03/26/17 06:32 03/26/17 06:32 03/26/17 06:32 03/26/17 06:32 - Physical Exam Comments: 03/26/17 07:23 GENERAL: Awake, alert, and fully oriented, in no acute distress HEAD: No signs of trauma, normocephalic, atraumatic EYES: PERRLA, EOMI, sclera anicteric, conjunctiva clear ENT: Auricles normal inspection, hearing grossly normal, nares patent, oropharynx clear without exudates. Moist mucosa LUNGS: No distress, speaks full sentences, clear to auscultation bilaterally HEART: Regular rate and rhythm, normal S1 and S2, no murmurs, rubs or gallops, peripheral pulses normal and equal bilaterally. ABDOMEN: Soft, nontender, normoactive bowel sounds. No guarding, no rebound. No masses BACK: No CVA tenderness ED Treatment Course - LABORATORY CBC & Chemistry Diagram: 03/26/17 03:29 03/26/17 04:13 - ADDITIONAL ORDERS Additional order review: Laboratory Results 03/26/17 03/26/17 04:13 04:13 Sodium 138 Potassium 4.4 Chloride 104 Carbon Dioxide 27 Anion Gap 7 L BUN 12 Creatinine 0.6 Creat Clearance w eGFR > 60 Random Glucose 107 H Calcium 8.8 Total Bilirubin 0.4 AST 12 L ALT 24 Alkaline Phosphatase 149 H Total Protein 7.7 Albumin 3.6 Urine Color Yellow Urine Appearance Cloudy Urine pH 6.0 Ur Specific [place] 1.016 Urine Protein 1+ H Urine Glucose (UA) Negative Urine Ketones Negative Urine Blood 3+ H Urine Nitrite Negative Urine Bilirubin Negative Urine Urobilinogen Negative Ur Leukocyte Esterase Trace Urine WBC (Auto) 126 Urine RBC (Auto) 1819 Ur Epithelial Cells Moderate Calcium Oxalate Crystal Few Urine Bacteria Few Urine Mucus Rare Urine HCG, Qual Negative 03/26/17 03:29 RBC 5.00 D MCV 75.9 L MCHC 31.3 L RDW 16.2 H MPV 9.4 D Neutrophils % 80.0 Lymphocytes % 15.0 Monocytes % 4.3 Eosinophils % 0.3 Basophils % 0.4 - Medications Given in the ED: ED Medications Discontinued Medications Generic Name Dose Route Start Last Admin Trade Name Freq PRN Reason Stop Dose Admin Acetaminophen 1,000 mg 03/26/17 04:17 03/26/17 06:04 Ofirmev Injection - IVPB 03/26/17 04:18 Not Given ONCE ONE Sodium Chloride 1,000 mls @ 1,000 mls/hr 03/26/17 03:49 03/26/17 05:03 Normal Saline - IV 03/26/17 04:48 1,000 mls/hr ASDIR STA Administration Ketorolac Tromethamine 15 mg 03/26/17 03:49 03/26/17 04:43 Toradol Injection - IVPUSH 03/26/17 03:50 15 mg ONCE ONE Administration Oxycodone/Acetaminophen 1 combo 03/26/17 06:59 03/26/17 07:07 Percocet 5/325 - PO 03/26/17 07:00 1 combo ONCE ONE Administration Tamsulosin HCl 0.8 mg 03/26/17 03:50 03/26/17 04:43 Flomax - PO 03/26/17 03:51 0.8 mg ONCE ONE Administration Medical Decision Making - Medical Decision Making 03/26/17 07:24 Patient is a 21F here today with a kidney stone. Vital signs stable and normal. Laboratory Tests 03/26/17 03/26/17 03/26/17 03:29 04:13 04:13 WBC 20.0 H Hgb 11.9 D Hct 37.9 D Plt Count 351 D BUN 12 Creatinine 0.6 Urine Protein 1+ H Urine Blood 3+ H Ur Leukocyte Esterase Trace Urine WBC (Auto) 126 Urine RBC (Auto) 1819 Ur Epithelial Cells Moderate Calcium Oxalate Crystal Few Urine Bacteria Few Urine HCG, Qual Negative CBC shows leukocytosis. H/H normal. Kidney function normal. UA shows protein, blood, LE, calcium oxalate and bacteria. Count shows 126 WBC. Upreg normal. After signout, was concerned for possibly pyelo given white count and stone. CT report suggests stone has just passed, only shows mild hydro. UA equivocal with possible contaminant, but given white count and stone will cover with bactrim. Will discharge with PCP follow up and urology referral. *DC/Admit/Observation/Transfer Diagnosis at time of Disposition: Nephrolithiasis - Discharge Dispostion Disposition: HOME Condition at time of disposition: Good Admit: No - Prescriptions Prescriptions: Sulfamethoxazole/Trimethoprim [Bactrim Ds -] 1 tab PO BID #5 tablet - Referrals Referrals: Chris Umana MD [Staff Physician] - Jeffrey Lacy MD [Staff Physician] - - Patient Instructions Printed Discharge Instructions: DI for Kidney Stones, DI for Urinary Tract Infection (UTI) Additional Instructions: You were seen today in the ED for a urinary tract infection and kidney stone. You were given an antibiotic in the ED this morning. You were also prescribed an antibiotic to take at home. Please start this tonight, take as directed, and complete the prescription even if you feel better. Please return if you have any new or worsening symptoms, especially fevers, chills and increasing abdominal pain. - Post Discharge Activity Forms/Work/School Notes: Back to Work
[2017-03-26] MEDS ORDERED: SULFAMETHOXAZOLE/TRIMETHOPRIM 800MG/160MG D.S. TABLET PO ONE (07:38)
[2017-03-26] MEDS ORDERED: SULFAMETHOXAZOLE/TRIMETHOPRIM 800MG/160MG D.S. TABLET ONE (07:57)
[2017-03-26 08:06] VITALS: BP 121/68; TEMP 98.4
[2017-03-26 08:11] VITALS: PULSE 61
== END 2017-03-26 09:09 | disposition home or self-care (01) ==
LOC: JER 01:26
PROC: 3E0337Z Introduction of Electrolytic and Water Balance Substance into Peripheral Vein, Percutaneous Approach (ICD-10-PCS; principal; 2017-03-26)
PROC: 3E0333Z Introduction of Anti-inflammatory into Peripheral Vein, Percutaneous Approach (ICD-10-PCS; 2017-03-26)
DX: N13.2 Hydronephrosis with renal and ureteral calculous obstruction (principal)
CPT/HCPCS: 36415; 74176-TC; 80053; 81003; 81015; 84703; 85025; 87077; 87086; 99283-25

== ENCOUNTER 2017-03-27 09:11 | Emergency (ER) | payer SELFPAY ==
[2017-03-27 09:21] VITALS: TEMP 97.8; BMI 31.4
[2017-03-27] MEDS ORDERED: SODIUM CHLORIDE 1,000 ML IV STA (09:39)
[2017-03-27] MEDS ORDERED: TAMSULOSIN HCL 0.4 MG CAP.ER.24H (FP) PO ONE (09:39)
[2017-03-27] MEDS ORDERED: KETOROLAC TROMETHAMINE 30 MG/1 ML VIAL IVPUSH ONE (09:39)
--- NOTE | 2017-03-27 09:44 | PDOC ---
History of Present Illness - General History Source: Patient - History of Present Illness Timing/Duration: reports: constant Abdominal Pain Onset Location: reports: flank <Edward Charles - Last Filed: 03/27/17 13:52> <Latosha Aguiar - Last Filed: 03/27/17 15:49> - General Chief Complaint: Pain, Acute Stated Complaint: PAIN/ BACK, ABD Time Seen by Provider: 03/27/17 09:33 Past History - Past Medical History Asthma: No Cancer: No Cardiac Disorders: No COPD: No Diabetes: No HTN: No Seizures: No Thyroid Disease: No Other medical history: DENIES. - Reproductive History (#): 1 Para: 0 Spontaneous : 0 - Immunization History Immunization Up to Date: Yes - Suicide/Smoking/Psychosocial Hx Smoking Status: No Smoking History: Never smoked Have you smoked in the past 12 months: No Number of Cigarettes Smoked Daily: 0 Hx Alcohol Use: No Drug/Substance Use Hx: No Substance Use Type: None Hx Substance Use Treatment: No <Edward Charles - Last Filed: 03/27/17 13:52> <Latosha Aguiar - Last Filed: 03/27/17 15:49> - Past Medical History Allergies/Adverse Reactions: Allergies Allergy/AdvReac Type Severity Reaction Status Date / Time No Known Allergies Allergy Verified 03/27/17 09:18 Home Medications: Ambulatory Orders Sulfamethoxazole/Trimethoprim [Bactrim Ds -] 1 tab PO BID #5 tablet 03/26/17 Ibuprofen [Motrin -] 800 mg PO QID #30 tablet 03/27/17 Tamsulosin HCl [Flomax] 0.4 mg PO DAILY #5 cap.er.24h 03/27/17 Tramadol HCl 50 mg PO Q6H #12 tablet MDD 200mg 03/27/17 Review of Systems - Review of Systems Constitutional: No: Chills, Fever ABD/GI: No: Nausea, Vomiting : Yes: Flank Pain. No: Dysuria, Hematuria <Edward Charles - Last Filed: 03/27/17 13:52> *Physical Exam - Vital Signs Last Vital Signs Temp Pulse Resp BP Pulse Ox 97.8 F 61 19 122/67 99 03/27/17 09:18 03/27/17 09:18 03/27/17 09:18 03/27/17 09:18 03/27/17 09:18 - Physical Exam General Appearance: Yes: Appropriately Dressed, Mild Distress HEENT: positive: Normal Voice Neck: positive: Supple Respiratory/Chest: negative: Respiratory Distress Gastrointestinal/Abdominal: positive: Soft Musculoskeletal: positive: CVA Tenderness (L) Integumentary: positive: Dry, Warm Neurologic: positive: Fully Oriented, Alert, Normal Mood/Affect <Edward Charles - Last Filed: 03/27/17 13:52> - Vital Signs Last Vital Signs Temp Pulse Resp BP Pulse Ox 97.8 F 82 17 123/67 100 03/27/17 09:18 03/27/17 14:30 03/27/17 14:30 03/27/17 14:30 03/27/17 14:30 <Latosha Aguiar - Last Filed: 03/27/17 15:49> ED Treatment Course - LABORATORY CBC & Chemistry Diagram: 03/27/17 10:00 03/27/17 10:00 <Edward Charles - Last Filed: 03/27/17 13:52> - LABORATORY CBC & Chemistry Diagram: 03/27/17 10:00 03/27/17 10:00 - ADDITIONAL ORDERS Additional order review: Laboratory Results 03/27/17 10:00 Sodium 140 Potassium 4.5 Chloride 105 Carbon Dioxide 27 Anion Gap 8 BUN 6 L Creatinine 0.6 Creat Clearance w eGFR > 60 Random Glucose 91 Calcium 8.2 L Total Bilirubin 0.6 D AST 9 L ALT 16 Alkaline Phosphatase 134 H Total Protein 6.8 Albumin 3.4 03/27/17 10:00 RBC 4.66 MCV 76.2 L MCHC 31.2 L RDW 16.2 H MPV 9.4 Neutrophils % 69.3 Lymphocytes % 24.5 D Monocytes % 4.7 Eosinophils % 1.1 D Basophils % 0.4 - Medications Given in the ED: ED Medications Discontinued Medications Generic Name Dose Route Start Last Admin Trade Name Freq PRN Reason Stop Dose Admin Sodium Chloride 1,000 mls @ 1,000 mls/hr 03/27/17 09:39 03/27/17 10:05 Normal Saline - IV 03/27/17 10:38 1,000 mls/hr ASDIR STA Administration Ketorolac Tromethamine 30 mg 03/27/17 09:39 03/27/17 10:29 Toradol Injection - IVPUSH 03/27/17 09:40 30 mg ONCE ONE Administration Tamsulosin HCl 0.4 mg 03/27/17 09:39 03/27/17 10:25 Flomax - PO 03/27/17 09:40 0.4 mg ONCE ONE Administration Tramadol HCl 50 mg 03/27/17 14:22 03/27/17 14:32 Ultram - PO 03/27/17 14:23 50 mg ONCE ONE Administration <Latosha Aguiar - Last Filed: 03/27/17 15:49> Medical Decision Making - Medical Decision Making 03/27/17 09:40 21-year-old female diagnosed with L kidney stone yesterday in ED after p/w w/ L flank pain x 3 days, discharged with bactrim presumedly for white count of 20 with trace leuks and blood on UA. Culture still pending. Patient returns today because of persistent pain. No nausea, vomiting, fever, chills, or dysuria. States she was not discharged with any pain medication or flomax. Based on chart review, patient had a 3-4 mm stone in the proximal aspect of the left ureter w/ mild hydro See exam L renal colic Had 3-4mm stone located to proximal L ureter w/ mild hydro on CT yesterday On bactrim presumedly for wbc of 20. had trace le on ua, no nit, ucx pending No n/v/f/c or dysuria currently Not given rx for pain meds yesterday -pain control -IVF -reassess 03/27/17 11:15 Pt reports feeling much better with pain medication. White count today 13, down from 20 yesterday. Prelim urine culture shows 100,000 CFU w/ no identifiable organism or sensitivity at this time. Discussed with patient that she may have an infected stone based on prelim ucx and white count and that she would most likely need admission and for to see her. Patient states that she does have a history of elevated white count. On chart review, patient has had leukocytosis between 14 and 20 since 2016. Will consult with at this time for further management . Patient currently on Bactrim 03/27/17 13:[address] Larry Rocha several times with no call back after 2 hours. Will attempt to contact Dr. De La Cruz at this time 03/27/17 13:[address] LARRY Rocha, reviewed CT results from prior visit, informed of leukocytosis and prelim ucx, states patient should continue bactrim and see him in the office on Thursday at 11 AM. Pt currently asymptomatic and stable for discharge at this time. Strict return precautions given <Em CharlesKarenChantel - Last Filed: 03/27/17 13:52> *DC/Admit/Observation/Transfer <Em CharlesKarenChantel - Last Filed: 03/27/17 13:52> - Attestations Physician Attestion: I reviewed the case with the mid-level practitioner and agree with the mid- level practitioner's assessment, diagnosis and disposition. <Latosha Aguiar - Last Filed: 03/27/17 15:49> Diagnosis at time of Disposition: Renal colic on left side - Discharge Dispostion Disposition: HOME Condition at time of disposition: Improved - Prescriptions Prescriptions: Ibuprofen [Motrin -] 800 mg PO QID #30 tablet Tamsulosin HCl [Flomax] 0.4 mg PO DAILY #5 cap.er.24h Tramadol HCl 50 mg PO Q6H #12 tablet MDD 200mg - Referrals Referrals: Jasper George MD [Primary Care Provider] - Chris Umana MD [Staff Physician] - - Patient Instructions Additional Instructions: Continue the Bactrim and take additional medications as directed. If symptoms worsen, return to ED immediately. Otherwise, please follow-up with Dr. Larry Rocha in his office at 11 AM on Thursday. Please call office on Thursday to make arrangements - Post Discharge Activity Forms/Work/School Notes: Back to Work
[2017-03-27] MEDS ORDERED: KETOROLAC TROMETHAMINE 30 MG/1 ML VIAL ONE (09:58)
[2017-03-27] MEDS ORDERED: TAMSULOSIN HCL 0.4 MG CAP.ER.24H (FP) ONE (09:58)
[2017-03-27 10:20] LABS: BASO % 0.4 % (0-2.0); EOS % 1.1 % (0-4.5); HEMATOCRIT 35.5 % (32.4-45.2); HEMOGLOBIN 11.1 GM/dL (10.7-15.3); LYMPH % 24.5 % (8-40); MCH 23.8 pg (25.7-33.7); MCHC 31.2 g/dl (32.0-36.0); MEAN CELL VOLUME 76.2 fl (80-96); MEAN PLT VOLUME 9.4 fl (7.5-11.1); MONO % 4.7 % (3.8-10.2); NEUT % 69.3 % (42.8-82.8); PLATELET COUNT 322 K/MM3 (134-434); RBC 4.66 M/mm3 (3.60-5.2); RDW 16.2 % (11.6-15.6); WHITE BLOOD COUNT 13.9 K/mm3 (4.0-10.0)
[2017-03-27 10:47] LABS: ALBUMIN 3.4 g/dl (3.4-5.0); ANION GAP 8 (8-16); BLOOD UREA NITROGEN 6 mg/dL (7-18); CALCIUM 8.2 mg/dL (8.5-10.1); CHLORIDE 105 mmol/L (98-107); CO2 27 mmol/L (21-32); CREATININE 0.6 mg/dL (0.55-1.02); GLUCOSE,RANDOM 91 mg/dL (74-106); POTASSIUM 4.5 mmol/L (3.5-5.1); SGOT/AST 9 U/L (15-37); SGPT/ALT 16 U/L (12-78); SODIUM 140 mmol/L (136-145)
[2017-03-27 10:48] LABS: ALK PHOS 134 U/L (45-117); BILIRUBIN,TOTAL 0.6 mg/dL (0.2-1.0); TOT PROT 6.8 g/dl (6.4-8.2)
[2017-03-27] MEDS ORDERED: traMADol HCL 50 MG TABLET PO ONE (14:22)
[2017-03-27] MEDS ORDERED: traMADol HCL 50 MG TABLET ONE (14:23)
[2017-03-27 14:32] VITALS: BP 123/67; PULSE 82
== END 2017-03-27 14:35 | disposition home or self-care (01) ==
LOC: JER 09:11
PROC: 3E0337Z Introduction of Electrolytic and Water Balance Substance into Peripheral Vein, Percutaneous Approach (ICD-10-PCS; principal; 2017-03-27)
PROC: 3E0333Z Introduction of Anti-inflammatory into Peripheral Vein, Percutaneous Approach (ICD-10-PCS; 2017-03-27)
DX: N13.2 Hydronephrosis with renal and ureteral calculous obstruction (principal)
CPT/HCPCS: 36415; 80053; 85025; 99284-25

== ENCOUNTER 2017-03-29 02:49 | Inpatient (IN) | payer SELFPAY ==
[2017-03-29] MEDS ORDERED: SODIUM CHLORIDE 1,000 ML IV STA (03:09)
[2017-03-29] MEDS ORDERED: KETOROLAC TROMETHAMINE 60 MG/2 ML VIAL IM ONE (03:09)
--- NOTE | 2017-03-29 03:09 | PDOC ---
History of Present Illness - General Stated Complaint: ABDOMINAL PAIN Time Seen by Provider: 03/29/17 02:54 History Source: Patient Exam Limitations: No Limitations - History of Present Illness Travel History: No Initial Comments: 03/29/17 03:17 Best Contact: Pmhx: None Pshx: None Allergies: NKDA LMP: 02/23/2017 21-year-old female presents to the ER for the third time this week complaining of left-sided flank pain. Pain is described as 9/10 sharp nonradiating constant discomfort. Patient states the pain is exacerbated on touch and there are no alleviating factors. Pain is associated with some nausea but no vomiting episodes. Patient denies fever, chills, chest pain, shortness of breath, abdominal pains, urinary symptoms: Frequency/urgency/hesitancy, hematuria. Patient was on Bactrim 3 days ago for 2 days with Flomax. Patient states pain is getting worse as of last evening. Patient was informed she had a 3-4 mm proximal left ureteral calculus with mild hydronephrosis. Past History - Past Medical History Allergies/Adverse Reactions: Allergies Allergy/AdvReac Type Severity Reaction Status Date / Time No Known Allergies Allergy Verified 03/27/17 09:18 Home Medications: Ambulatory Orders Tamsulosin HCl [Flomax] 0.4 mg PO DAILY #5 cap.er.24h 03/27/17 Tramadol HCl 50 mg PO Q6H #12 tablet MDD 200mg 03/27/17 Ibuprofen [Motrin -] 800 mg PO PRN 03/29/17 Asthma: No Cancer: No Cardiac Disorders: No COPD: No Diabetes: No HTN: No Seizures: No Thyroid Disease: No - Reproductive History (#): 1 Para: 0 Spontaneous : 0 - Immunization History Immunization Up to Date: Yes - Suicide/Smoking/Psychosocial Hx Smoking Status: No Smoking History: Never smoked Have you smoked in the past 12 months: No Number of Cigarettes Smoked Daily: 0 Hx Alcohol Use: No Drug/Substance Use Hx: No Substance Use Type: None Hx Substance Use Treatment: No Review of Systems - Review of Systems Able to Perform ROS?: Yes Comments:: 03/29/17 03:18 CONSTITUTIONAL: Absent: fever, chills, diaphoresis, generalized weakness, malaise, loss of appetite HEENT: Absent: rhinorrhea, nasal congestion, throat pain, throat swelling, difficulty swallowing, mouth swelling, ear pain, eye pain, visual Changes CARDIOVASCULAR: Absent: chest pain, loss of consciousness, palpitations, irregular heart rate, peripheral edema RESPIRATORY: Absent: cough, shortness of breath, dyspnea with exertion, orthopnea, wheezing, stridor, hemoptysis GASTROINTESTINAL: Absent: abdominal pain, abdominal distension, nausea, vomiting, diarrhea, constipation, melena, hematochezia GENITOURINARY: +left flank pain Absent: dysuria, frequency, urgency, hesitancy, hematuria, genital pain SKIN: Absent: rash, itching, pallor Is the patient limited Slovak proficient: No *Physical Exam - Physical Exam Comments: 03/29/17 03:18 GENERAL: Well developed, well nourished. Awake and alert. No acute distress. HEENT: Normocephalic, atraumatic. PERRLA, EOMI. No conjunctival pallor. Sclera are non- icteric. Moist mucous membranes. Oropharynx is clear. NECK: Supple. Full ROM. No JVD. Carotid pulses 2+ and symmetric, without bruits. No thyromegaly. No lymphadenopathy. CARDIOVASCULAR: Regular rate and rhythm. No murmurs, rubs, or gallops. Distal pulses are 2+ and symmetric. PULMONARY: No evidence of respiratory distress. Lungs clear to auscultation bilaterally. No wheezing, rales or rhonchi. ABDOMINAL: Soft. Non-tender. Non-distended. No rebound or guarding. No organomegaly. Normoactive bowel sounds. MUSCULOSKELETAL +Left CVAT Normal range of motion at all joints. No bony deformities or tenderness. EXTREMITIES: No cyanosis. No clubbing. No edema. No calf tenderness. SKIN: Warm and dry. Normal capillary refill. No rashes. No jaundice. ED Treatment Course - LABORATORY CBC & Chemistry Diagram: 03/29/17 04:14 03/29/17 04:14 *DC/Admit/Observation/Transfer Diagnosis at time of Disposition: Renal colic on left side, Pyelonephritis - Discharge Dispostion Condition at time of disposition: Stable Admit: Yes - Referrals Referrals: Jasper George MD [Primary Care Provider] - Chris Umana MD [Staff Physician] - - Patient Instructions - Post Discharge Activity
[2017-03-29] MEDS ORDERED: KETOROLAC TROMETHAMINE 60 MG/2 ML VIAL ONE (03:16)
[2017-03-29 03:20] VITALS: BMI 31.4
[2017-03-29 04:21] LABS: BASO % 0.7 % (0-2.0); EOS % 1.5 % (0-4.5); HEMATOCRIT 38.1 % (32.4-45.2); HEMOGLOBIN 12.1 GM/dL (10.7-15.3); LYMPH % 23.5 % (8-40); MCH 24.2 pg (25.7-33.7); MCHC 31.8 g/dl (32.0-36.0); MEAN PLT VOLUME 9.6 fl (7.5-11.1); MONO % 5.1 % (3.8-10.2); NEUT % 69.2 % (42.8-82.8); PLATELET COUNT 337 K/MM3 (134-434); RBC 5.01 M/mm3 (3.60-5.2); RDW 15.6 % (11.6-15.6); WHITE BLOOD COUNT 17.3 K/mm3 (4.0-10.0)
[2017-03-29 04:27] LABS: URINE APPEARANCE CLEAR; URINE BILIRUBIN NEGATIVE (NEGATIVE); URINE BLOOD 1+ (NEGATIVE); URINE COLOR LTYELLOW; URINE GLUCOSE (UA) NEGATIVE (NEGATIVE); URINE KETONE NEGATIVE (NEGATIVE); URINE NITRITE NEGATIVE (NEGATIVE); URINE PROTEIN NEGATIVE (NEGATIVE); URINE UROBILINOGEN NEGATIVE mg/dL (0.2-1.0)
[2017-03-29 04:29] LABS: URINE LEUK ESTERASE 3+ (NEGATIVE)
[2017-03-29 04:30] LABS: EPI CELLS RARE /HPF (FEW); URINE MUCUS RARE
[2017-03-29 05:48] LABS: BLOOD UREA NITROGEN 9 mg/dL (7-18); CHLORIDE 103 mmol/L (98-107); CREATININE 0.7 mg/dL (0.55-1.02); GLUCOSE,RANDOM 91 mg/dL (74-106); POTASSIUM 4.5 mmol/L (3.5-5.1); SODIUM 137 mmol/L (136-145)
[2017-03-29 05:49] LABS: ALBUMIN 3.6 g/dl (3.4-5.0); ALK PHOS 145 U/L (45-117); ANION GAP 6 (8-16); BILIRUBIN,TOTAL 0.3 mg/dL (0.2-1.0); CALCIUM 8.4 mg/dL (8.5-10.1); CO2 28 mmol/L (21-32); SGOT/AST 13 U/L (15-37); SGPT/ALT 20 U/L (12-78); TOT PROT 7.5 g/dl (6.4-8.2)
[2017-03-29] MEDS ORDERED: SODIUM CHLORIDE 1,000 ML IV SCH (06:15)
--- NOTE | 2017-03-29 06:21 | HP ---
CHIEF COMPLAINT: Flank Pain PCP: Dr. Emily George HISTORY OF PRESENT ILLNESS: 21 y/o young woman presents to the ED for L- flank pain. Patient was seen at [facility] for the same started on Bactrim po without relief. The patient reports increased pain, dysuria, constipation since taking Tramadol. Patient denies fever, chills, cough, SOB, CP, AP, N/V/D. ER course was notable for: (1) WBC 17.3 (2) UA +3 leukocyte esterase, +1 blood (3) Recent Travel: None PAST MEDICAL HISTORY: None PAST SURGICAL HISTORY: - 8 months ago Social History: Smoking: None Alcohol: None Drugs: None Lives with Family History: Non-contributory Allergies No Known Allergies Allergy (Verified 03/27/17 09:18) HOME MEDICATIONS: Home Medications Medication Instructions Recorded Tamsulosin HCl [Flomax] 0.4 mg PO DAILY #5 cap.er.24h 03/27/17 Tramadol HCl 50 mg PO Q6H #12 tablet MDD 200mg 03/27/17 Ibuprofen [Motrin -] 800 mg PO PRN 03/29/17 REVIEW OF SYSTEMS CONSTITUTIONAL: Absent: fever, chills, diaphoresis, generalized weakness, malaise, loss of appetite, weight change HEENT: Absent: rhinorrhea, nasal congestion, throat pain, throat swelling, difficulty swallowing, mouth swelling, ear pain, eye pain, visual changes CARDIOVASCULAR: Absent: chest pain, syncope, palpitations, irregular heart rate, lightheadedness , peripheral edema RESPIRATORY: Absent: cough, shortness of breath, dyspnea with exertion, orthopnea, wheezing, stridor, hemoptysis GASTROINTESTINAL: Absent: abdominal pain, abdominal distension, nausea, vomiting, diarrhea, constipation, melena, hematochezia GENITOURINARY: flank pain, dysuria, hesitancy Absent: dysuria, frequency, urgency, hesitancy, hematuria, genital pain MUSCULOSKELETAL: Absent: myalgia, arthralgia, joint swelling, back pain, neck pain SKIN: Absent: rash, itching, pallor HEMATOLOGIC/IMMUNOLOGIC: Absent: easy bleeding, easy bruising, lymphadenopathy, frequent infections ENDOCRINE: Absent: unexplained weight gain, unexplained weight loss, heat intolerance, cold intolerance NEUROLOGIC: Absent: headache, focal weakness or paresthesias, dizziness, unsteady gait, seizure, mental status changes, bladder or bowel incontinence PSYCHIATRIC: Absent: anxiety, depression, suicidal or homicidal ideation, hallucinations. PHYSICAL EXAMINATION Vital Signs - 24 hr 03/29/17 03:17 Temperature 98.1 F Pulse Rate 79 Respiratory 18 Rate Blood Pressure 110/69 O2 Sat by Pulse 100 Oximetry (%) GENERAL: Awake, alert, and fully oriented, in no acute distress. HEAD: Normal with no signs of trauma. EYES: Pupils equal, round and reactive to light, extraocular movements intact, sclera anicteric, conjunctiva clear. No lid lag. EARS, NOSE, THROAT: Ears normal, nares patent, oropharynx clear without exudates. Moist mucous membranes. NECK: Normal range of motion, supple without lymphadenopathy, JVD, or masses. LUNGS: Breath sounds equal, clear to auscultation bilaterally. No wheezes, and no crackles. No accessory muscle use. HEART: Regular rate and rhythm, normal S1 and S2 without murmur, rub or gallop. ABDOMEN: Soft, nontender, not distended, normoactive bowel sounds, no guarding, no rebound, no masses. No hepatomegaly or splenomegaly. MUSCULOSKELETAL: Normal range of motion at all joints. No bony deformities or tenderness. + CVA tenderness. UPPER EXTREMITIES: 2+ pulses, warm, well-perfused. No cyanosis. No clubbing. No peripheral edema. LOWER EXTREMITIES: 2+ pulses, warm, well-perfused. No calf tenderness. No peripheral edema. NEUROLOGICAL: Cranial nerves II-XII intact. Normal speech. Normal gait. PSYCHIATRIC: Cooperative. Good eye contact. Appropriate mood and affect. SKIN: Warm, dry, normal turgor, no rashes or lesions noted, normal capillary refill. Laboratory Results - last 24 hr 03/29/17 03/29/17 03/29/17 04:00 04:00 04:14 WBC RBC Hgb Hct MCV MCH MCHC RDW Plt Count MPV Neutrophils % Lymphocytes % Monocytes % Eosinophils % Basophils % Sodium 137 Potassium 4.5 Chloride 103 Carbon Dioxide 28 Anion Gap 6 L BUN 9 Creatinine 0.7 Creat Clearance w eGFR > 60 Random Glucose 91 Calcium 8.4 L Total Bilirubin 0.3 D AST 13 L ALT 20 Alkaline Phosphatase 145 H Total Protein 7.5 Albumin 3.6 Urine Color Ltyellow Urine Appearance Clear Urine pH 6.0 Ur Specific [place] 1.012 Urine Protein Negative Urine Glucose (UA) Negative Urine Ketones Negative Urine Blood 1+ H Urine Nitrite Negative Urine Bilirubin Negative Urine Urobilinogen Negative Ur Leukocyte Esterase 3+ H Urine WBC (Auto) 5 Urine RBC (Auto) 12 Ur Epithelial Cells Rare Urine Mucus Rare Urine HCG, Qual Negative 03/29/17 04:14 WBC 17.3 H RBC 5.01 Hgb 12.1 Hct 38.1 MCV 76.0 L MCH 24.2 L MCHC 31.8 L RDW 15.6 Plt Count 337 MPV 9.6 Neutrophils % 69.2 Lymphocytes % 23.5 Monocytes % 5.1 Eosinophils % 1.5 Basophils % 0.7 Sodium Potassium Chloride Carbon Dioxide Anion Gap BUN Creatinine Creat Clearance w eGFR Random Glucose Calcium Total Bilirubin AST ALT Alkaline Phosphatase Total Protein Albumin Urine Color Urine Appearance Urine pH Ur Specific [place] Urine Protein Urine Glucose (UA) Urine Ketones Urine Blood Urine Nitrite Urine Bilirubin Urine Urobilinogen Ur Leukocyte Esterase Urine WBC (Auto) Urine RBC (Auto) Ur Epithelial Cells Urine Mucus Urine HCG, Qual ASSESSMENT/PLAN: This is a 21 y/o woman Admitted with Pyelonephritis secondary to Failed Outpatient Therapy, Intractable Flank Pain FEN -NS@100ml/hr - Replete lytes prn - Regular Diet Code Status: Full Code Dispo: Requires Inpatient Care Problem List - Problem (1) Pyelonephritis Assessment/Plan: -Likely secondary to failed outpatient therapy - CTAP done on 03/26/17- 3-4 mm proximal left urethral calculus with mildly hydronephrosis - WBC 17.3 - Levofloxacin started in ED will continue - Appreciate Nephrology Consult - Toradol prn - Repeat CBC, BMP tomorrow - Urine Culture-pending Code(s): N12 - TUBULO-INTERSTITIAL NEPHRITIS, NOT SPCF ACUTE OR CHRONIC (2) Renal colic on left side Assessment/Plan: - See Above Code(s): N23 - UNSPECIFIED RENAL COLIC (3) DVT prophylaxis Assessment/Plan: - OOB - SCDs Code(s): [id number] - Visit type - Emergency Visit Emergency Visit: Yes ED Registration Date: 03/29/17 Care time: The patient presented to the Emergency Department on the above date and was hospitalized for further evaluation of their emergent condition. - New Patient This patient is new to me today: Yes Date on this admission: 03/29/17 - Critical Care Critical Care patient: No
[2017-03-29] MEDS: SENNOSIDES 8.6MG TABLET (FP) PO SCH ×2 (10:45→21:18)
[2017-03-29] MEDS ORDERED: HYDROmorphone HCL CARPU-JECT 4 MG/1 ML DISP.SYRIN IVPUSH PRN (11:58)
--- NOTE | 2017-03-29 12:02 | PN ---
Progress Note, Physician - Current Medication List Current Medications: Active Medications Sodium Chloride (Normal Saline -) 1,000 mls @ 100 mls/hr IV ASDIR [facility] Last Admin: 03/29/17 06:27 Dose: 100 mls/hr Levofloxacin (Levaquin 750 Mg Premixed Ivpb -) 750 mg in 150 mls @ 150 mls/hr IVPB DAILY [facility] Stop: 04/03/17 09:59 Ketorolac Tromethamine (Toradol Injection -) 15 mg IVPUSH Q6H PRN PRN Reason: PAIN LEVEL 6-10 Stop: 04/03/17 08:59 Senna (Senna -) 1 tab PO BID [facility] Last Admin: 03/29/17 10:45 Dose: 1 tab - Objective Vital Signs: Vital Signs Temperature 98.1 F 03/29/17 03:17 Pulse Rate 89 03/29/17 06:31 Respiratory Rate 18 03/29/17 06:31 Blood Pressure 112/71 03/29/17 06:31 O2 Sat by Pulse Oximetry (%) 100 03/29/17 03:17 Cardiovascular: Yes: Regular Rate and Rhythm Respiratory: Yes: Regular, CTA Bilaterally Gastrointestinal: Yes: Normal Bowel Sounds, Soft Genitourinary: Yes: CVA Tenderness - Left Labs: CBC, BMP 03/29/17 04:14 03/29/17 04:14 Assessment/Plan - Problem (1) Pyelonephritis Assessment/Plan: -Likely secondary to failed outpatient therapy - CTAP done on 03/26/17- 3-4 mm proximal left urethral calculus with mildly hydronephrosis - WBC 17.3 - Levofloxacin started in ED leora start rocephin --urology consult - Toradol q 6h - Repeat CBC, BMP tomorrow - Urine Culture-pending Code(s): N12 - TUBULO-INTERSTITIAL NEPHRITIS, NOT SPCF ACUTE OR CHRONIC (2) Renal colic on left side Assessment/Plan: - See Above Code(s): N23 - UNSPECIFIED RENAL COLIC (3) DVT prophylaxis Assessment/Plan: - OOB - SCDs Code(s): [id number] -
[2017-03-29] MEDS ORDERED: PANTOPRAZOLE 40 MG TABLET (FP) ONE (15:45)
[2017-03-29] MEDS: PANTOPRAZOLE 40 MG TABLET (FP) PO SCH (16:03)
[2017-03-29] MEDS: D5-1/2NS+20 MEQ KCL - 20 MEQ/1,000 ML INFUS.BAG IV SCH (16:03)
[2017-03-29] MEDS: KETOROLAC TROMETHAMINE 15 MG/ML VIAL IVPUSH SCH ×2 (16:03→18:45)
[2017-03-29] MEDS: CEFTRIAXONE 1 G/50 ML PREMIX 50 ML IVPB SCH (16:04)
[2017-03-29] MEDS ORDERED: HYDROmorphone HCl/Pf 2 MG/ML VIAL - FOR OR PYXIS USE ONE (17:41)
[2017-03-29] MEDS ORDERED: KETOROLAC TROMETHAMINE 15 MG/ML VIAL ONE (21:14)
[2017-03-29] MEDS: KETOROLAC TROMETHAMINE 15 MG/ML VIAL IVPUSH PRN (21:15)
[2017-03-29] MEDS ORDERED: ONDANSETRON 4 MG/2 ML VIAL ONE ×2 (21:21→21:26)
[2017-03-29] MEDS ORDERED: ONDANSETRON 4 MG/2 ML VIAL IVPB ONE (21:30)
[2017-03-30] MEDS: D5-1/2NS+20 MEQ KCL - 20 MEQ/1,000 ML INFUS.BAG IV SCH (03:05)
[2017-03-30] MEDS: KETOROLAC TROMETHAMINE 15 MG/ML VIAL IVPUSH SCH ×2 (04:18→05:43)
[2017-03-30] MEDS: KETOROLAC TROMETHAMINE 15 MG/ML VIAL IVPUSH PRN ×3 (04:28→18:09)
[2017-03-30 07:23] LABS: BASO % 0.3 % (0-2.0); EOS % 1.5 % (0-4.5); HEMATOCRIT 35.8 % (32.4-45.2); HEMOGLOBIN 11.5 GM/dL (10.7-15.3); LYMPH % 17.8 % (8-40); MCH 24.4 pg (25.7-33.7); MCHC 32.2 g/dl (32.0-36.0); MEAN CELL VOLUME 75.6 fl (80-96); MEAN PLT VOLUME 9.4 fl (7.5-11.1); MONO % 6.4 % (3.8-10.2); PLATELET COUNT 353 K/MM3 (134-434); RBC 4.74 M/mm3 (3.60-5.2); RDW 16.2 % (11.6-15.6); WHITE BLOOD COUNT 14.7 K/mm3 (4.0-10.0)
[2017-03-30 08:16] LABS: ANION GAP 6 (8-16); BLOOD UREA NITROGEN 9 mg/dL (7-18); CALCIUM 8.7 mg/dL (8.5-10.1); CHLORIDE 103 mmol/L (98-107); CO2 29 mmol/L (21-32); CREATININE 0.7 mg/dL (0.55-1.02); GLUCOSE,RANDOM 98 mg/dL (74-106); POTASSIUM 4.7 mmol/L (3.5-5.1); SODIUM 138 mmol/L (136-145)
--- NOTE | 2017-03-30 08:46 | PN ---
Progress Note (short form) - Note Progress Note: ID consult 21 year old female from [facility] in [place]CE 2O[facility] HISTORY OF GESTATIONAL DM JUNE 2016 Presents now with left flank pain and nausea since last week with a trip to ER here and given antibiotic CT scan shous left ureteral stone hydronephrosis Denies fever chills dysuria hematuria No other medical history Selected Entries 03/29/17 19:58 Temperature 97.2 F L Pulse Rate 60 Respiratory 16 Rate Blood Pressure 114/56 NAD Lung Clear Cor S1 S2 RR Abd Soft nontender Ext Left CVAT Microbiology 03/26/17 04:13 Urine - Urine Clean Catch Urine Culture - Final Lactobacillus Species Laboratory Tests 03/29/17 03/29/17 03/29/17 04:00 04:14 04:14 WBC 17.3 H Hgb Hct Plt Count BUN Creatinine AST 13 L ALT 20 Alkaline Phosphatase 145 H Ur Leukocyte Esterase 3+ H Urine WBC (Auto) 5 Urine RBC (Auto) 12 03/30/17 03/30/17 06:30 06:30 WBC 14.7 H Hgb 11.5 Hct 35.8 Plt Count 353 BUN 9 Creatinine 0.7 AST ALT Alkaline Phosphatase Ur Leukocyte Esterase Urine WBC (Auto) Urine RBC (Auto) Assessment Left renal calculi with possible associated infected UTI ( lactobacillus on culture) Plan Continue Ceftriaxone Stop Levoflox Urology consult HIV testing Dieter FERNANDEZ
[2017-03-30] MEDS ORDERED: PT OWN MED DRAWER 7, Y5N ONE (09:45)
[2017-03-30] MEDS: SENNOSIDES 8.6MG TABLET (FP) PO SCH (09:48)
[2017-03-30] MEDS: CEFTRIAXONE 1 G/50 ML PREMIX 50 ML IVPB SCH (09:48)
[2017-03-30] MEDS: PANTOPRAZOLE 40 MG TABLET (FP) PO SCH (09:49)
[2017-03-30] MEDS ORDERED: TAMSULOSIN HCL 0.4 MG CAP.ER.24H (FP) PO SCH (10:00)
[2017-03-30] MEDS ORDERED: ONDANSETRON 4 MG/2 ML VIAL IVPUSH PRN (10:56)
--- NOTE | 2017-03-30 11:04 | PN ---
Progress Note, Physician Chief Complaint: Left flank pain UTI Nephrolithiasis History of Present Illness: NAD, resting in bed mild pain on palpation seen by ID to be seen by Urology IVF constipated - Current Medication List Current Medications: Active Medications Hydromorphone HCl (Dilaudid Injection -) 1 mg IVPUSH Q4H PRN PRN Reason: PAIN LEVEL 6-10 Last Admin: 03/29/17 17:49 Dose: 1 mg CEFTRIAXONE 1 G/50 ML PREMIX (Ceftriaxone 1 Gm-D5w Bag) 50 mls @ 100 mls/hr IVPB DAILY [facility] [place] Last Admin: 03/30/17 09:48 Dose: 100 mls/hr Potassium Chloride/Dextrose/Sod Cl (D5-1/2ns+20 Meq Kcl -) 20 meq in 1,000 mls @ 125 mls/hr IV ASDIR [facility] [place] Last Admin: 03/30/17 03:05 Dose: 125 mls/hr Ketorolac Tromethamine (Toradol Injection -) 15 mg IVPUSH Q6H PRN PRN Reason: PAIN LEVEL 6-10 Stop: 04/03/17 08:59 Last Admin: 03/30/17 04:28 Dose: 15 mg Ketorolac Tromethamine (Toradol Injection -) 15 mg IVPUSH Q6H [facility] [place] Stop: 04/03/17 11:59 Last Admin: 03/30/17 05:43 Dose: Not Given Ondansetron HCl (Zofran Injection) 4 mg IVPUSH Q8H PRN PRN Reason: NAUSEA Pantoprazole Sodium (Protonix -) 40 mg PO DAILY [facility] [place] Last Admin: 03/30/17 09:49 Dose: 40 mg Senna (Senna -) 1 tab PO BID [facility] [place] Last Admin: 03/30/17 09:48 Dose: 1 tab Tamsulosin HCl (Flomax -) 0.4 mg PO DAILY [facility] [place] Last Admin: 03/30/17 09:48 Dose: 0.4 mg - Objective Vital Signs: Vital Signs Temperature 98.2 F 03/30/17 07:00 Pulse Rate 64 03/30/17 07:00 Respiratory Rate 18 03/30/17 07:00 Blood Pressure 112/74 03/30/17 07:00 O2 Sat by Pulse Oximetry (%) 97 03/29/17 23:00 Constitutional: Yes: Well Nourished, No Distress, Calm Cardiovascular: Yes: Regular Rate and Rhythm Respiratory: Yes: Regular Gastrointestinal: Yes: Normal Bowel Sounds, Soft Musculoskeletal: Yes: WNL Extremities: Yes: WNL Edema: No Peripheral Pulses WNL: Yes Neurological: Yes: Alert, Oriented Psychiatric: Yes: Alert, Oriented Labs: CBC, BMP 03/30/17 06:30 03/30/17 06:30 Problem List - Problems (1) UTI (urinary tract infection) Assessment/Plan: -UC- lactobacillus species -seen by ID -IV abx Code(s): N39.0 - URINARY TRACT INFECTION, SITE NOT SPECIFIED (2) Pyelonephritis Assessment/Plan: -pain management -Urology consult for partially obstructing left renal calculus -mild hydronephrosis Code(s): N12 - TUBULO-INTERSTITIAL NEPHRITIS, NOT SPCF ACUTE OR CHRONIC (3) Renal colic on left side Assessment/Plan: -mild hydronephrosis -pain management Code(s): N23 - UNSPECIFIED RENAL COLIC Assessment/Plan see problem list DVT/GI prophylaxis milralax for constipation
[2017-03-30] MEDS ORDERED: ACETAMINOPHEN 325 MG TABLET (FP) PO PRN (11:09)
[2017-03-30] MEDS ORDERED: HYDROmorphone HCL CARPU-JECT 2 MG/1 ML DISP.SYRIN IVPB PRN (11:09)
[2017-03-30] MEDS ORDERED: HEPARIN NA (PORCINE) 5,000 UNITS/ML 1ML VIAL SQ SCH (11:15)
[2017-03-30] MEDS ORDERED: POLYETHYLENE GLYCOL 3350 119 GM BTL PO SCH (11:15)
[2017-03-30] MEDS: SODIUM CHLORIDE 1,000 ML IV SCH (11:57)
--- NOTE | 2017-03-30 14:15 | CON.GU ---
Consult Consult Specialty:: urology Referred by:: jenna Reason for Consultation:: uti with obstructing left ureteral stone - History of Present Illness Chief Complaint: left renal colic/uti - History Source History Provided By: Patient Limitations to Obtaining History: No Limitations - Past Medical History ...LMP: 10/05/15 - Alcohol/Substance Use Hx Alcohol Use: No - Smoking History Smoking history: Never smoked Have you smoked in the past 12 months: No Aproximately how many cigarettes per day: 0 - Social History History of Recent Travel: No Home Medications - Allergies Allergies/Adverse Reactions: Allergies Allergy/AdvReac Type Severity Reaction Status Date / Time No Known Allergies Allergy Verified 03/27/17 09:18 - Home Medications Home Medications: Ambulatory Orders Tamsulosin HCl [Flomax] 0.4 mg PO DAILY #5 cap.er.24h 03/27/17 Tramadol HCl 50 mg PO Q6H #12 tablet MDD 200mg 03/27/17 Ibuprofen [Motrin -] 800 mg PO PRN 03/29/17 Physical Exam- Vital Signs: Vital Signs Temperature 98.2 F 03/30/17 07:00 Pulse Rate 64 03/30/17 07:00 Respiratory Rate 18 03/30/17 07:00 Blood Pressure 112/74 03/30/17 07:00 O2 Sat by Pulse Oximetry (%) 97 03/29/17 23:00 Constitutional: Yes: Well Nourished, No Distress Eyes: Yes: WNL, Conjunctiva Clear, EOM Intact HENT: Yes: WNL, Atraumatic, Normocephalic Neck: Yes: WNL, Supple, Trachea Midline Cardiovascular: Yes: WNL Respiratory: Yes: WNL Gastrointestinal: Yes: Soft, Hypoactive Bowel Sounds Renal/: Yes: CVA Tenderness - Left Kidneys: Yes: Flank Pain Left Pelvis: Yes: WNL Labs: CBC, BMP 03/30/17 06:30 03/30/17 06:30 Imaging - Results Cat Scan: Report Reviewed Assessment/Plan impression uti left partially obstructing ureteral stone plan will schedule left ureteroscopic stone basketing in am risks and benefits of procedure discussed and chart reviewed x 20 minutes
[2017-03-30] MEDS ORDERED: traMADol HCL 50 MG TABLET PO PRN ×2 (17:23→17:36)
--- NOTE | 2017-03-30 17:25 | HOSP ---
Subjective - Review of Symptoms Events since last encounter: Advised patient complaining of significant pain after Toradol and Tylenol. Ordered Ultram 50mg q6h PRN. Physical Examination Vital Signs: Vital Signs Temperature 98.3 F 03/30/17 14:29 Pulse Rate 72 03/30/17 14:29 Respiratory Rate 20 03/30/17 14:29 Blood Pressure 116/65 03/30/17 14:29 O2 Sat by Pulse Oximetry (%) 99 03/30/17 11:00 Labs: CBC, BMP 03/30/17 06:30 03/30/17 06:30
[2017-03-31] MEDS: KETOROLAC TROMETHAMINE 15 MG/ML VIAL IVPUSH PRN ×2 (00:02→05:06)
[2017-03-31] MEDS: SODIUM CHLORIDE 1,000 ML IV SCH ×3 (00:06→18:35)
[2017-03-31] MEDS ORDERED: PROPOFOL 20 ML ONE (07:22)
[2017-03-31] MEDS ORDERED: MIDAZOLAM HCL 2 MG/2 ML SINGLE DOSE VIAL ONE (07:22)
[2017-03-31] MEDS ORDERED: SUCCINYLCHOLINE CHLORIDE 200 MG/10 ML VIAL ONE (07:22)
[2017-03-31] MEDS ORDERED: LIDOCAINE HCL/PF 2% SDV 5ML VIAL ONE (07:24)
[2017-03-31] MEDS ORDERED: GENTAMICIN 80MG PREMIX BAG IVPB ONE (07:42)
[2017-03-31] MEDS ORDERED: GENTAMICIN SO4 80 MG/2 ML VIAL ONE (07:47)
[2017-03-31] MEDS ORDERED: DEXAMETHASONE SOD PHOSPHATE 4 MG/1 ML VIAL ONE (07:52)
[2017-03-31 08:01] LABS: BASO % 0.3 % (0-2.0); EOS % 1.3 % (0-4.5); HEMATOCRIT 37.4 % (32.4-45.2); HEMOGLOBIN 11.7 GM/dL (10.7-15.3); MCHC 31.4 g/dl (32.0-36.0); MEAN CELL VOLUME 76.4 fl (80-96); MEAN PLT VOLUME 9.9 fl (7.5-11.1); MONO % 5.1 % (3.8-10.2); NEUT % 71.3 % (42.8-82.8); PLATELET COUNT 353 K/MM3 (134-434); RBC 4.89 M/mm3 (3.60-5.2); WHITE BLOOD COUNT 14.5 K/mm3 (4.0-10.0)
--- NOTE | 2017-03-31 08:06 | OP ---
Operative Note - Note: Operative Date: 03/31/17 Pre-Operative Diagnosis: left ureteral stone and UTI Operation: cystoscopy/left retrograde pyelogram/left ureteroscopic stone basketing/left ureteral stent placement Findings: impacted left distal ureteral stone with proximal pyuria Post-Operative Diagnosis: Same as Pre-op Surgeon: Chris Umana Anesthesia: General Drains & Tubes with Location: 08/02 left stent
[2017-03-31] MEDS ORDERED: PROMETHAZINE HCL 25 MG/1 ML VIAL IVPUSH PRN (08:18)
[2017-03-31] MEDS ORDERED: LACTATED RINGERS SOLUTION 1,000 ML IV SCH (08:30)
--- NOTE | 2017-03-31 08:41 | OP ---
DATE OF OPERATION: 03/31/2017 PREOPERATIVE DIAGNOSIS: Left ureteral stone with left pyelonephritis. POSTOPERATIVE DIAGNOSIS: Left ureteral stone with left pyelonephritis. PROCEDURE: Cystoscopy, left retrograde pyelogram, left ureteroscopic stone manipulation, and left ureteral stent placement. ATTENDING: Darell Barker MD ANESTHESIA: General. DESCRIPTION OF OPERATION: The patient was brought in the operating room, placed in a supine position on the operating room table. General anesthesia was administered as well as a dose of gentamicin preoperatively for surgical prophylaxis. Patient is currently on Rocephin 1 g daily. The patient was then placed in dorsal lithotomy position and prepped and draped in the usual sterile manner. Cystoscopy was performed. There was no apparent trauma to the left ureteral orifice. No evidence of stone passage. There was no stone in the bladder. A retrograde pyelogram showed a hydronephrosis. An open-ended catheter was removed at this point and a wire placed. Ureteroscopy was performed, and an impacted stone was noted. A second wire was utilized, and with the position of the second wire in the ureter, the stone migrated proximally. At this point, lulu pyuria was noted. Because of the risk of urosepsis, it was decided to remove the ureteroscope and place a stent. The patient will be scheduled for a left extracorporeal shock wave lithotripsy at a later date. The patient will continue with IV antibiotics at this time. No complications were noted. The disposition of the patient was to the recovery room. DARELL BARKER M.D. [id number]
[2017-03-31] MEDS ORDERED: IBUPROFEN 400 MG TABLET (FP) PO SCH (08:43)
[2017-03-31] MEDS ORDERED: KETOROLAC TROMETHAMINE 15 MG/ML VIAL IVPUSH PRN (08:43)
[2017-03-31] MEDS ORDERED: ONDANSETRON 4 MG/2 ML VIAL IVPUSH PRN (08:43)
[2017-03-31] MEDS ORDERED: PT OWN MED DRAWER 7, Y5N ONE (09:50)
[2017-03-31] MEDS: PANTOPRAZOLE 40 MG TABLET (FP) PO SCH (10:01)
[2017-03-31] MEDS: CEFTRIAXONE 1 G/50 ML PREMIX 50 ML IVPB SCH (10:01)
[2017-03-31] MEDS: ACETAMINOPHEN 325 MG TABLET (FP) PO PRN ×2 (10:01→17:11)
[2017-03-31] MEDS: POLYETHYLENE GLYCOL 3350 119 GM BTL PO SCH (10:01)
--- NOTE | 2017-03-31 10:03 | PN ---
Progress Note, Physician Chief Complaint: Left flank pain UTI Nephrolithiasis History of Present Illness: NAD, resting in bed mild pain on palpation seen by ID to be seen by Urology IVF IV abx constipated Had cystoscopy this AM Pre-Operative Diagnosis: left ureteral stone and UTI Operation: cystoscopy/left retrograde pyelogram/left ureteroscopic stone basketing/left ureteral stent placement Findings: impacted left distal ureteral stone with proximal pyuria - Current Medication List Current Medications: Active Medications Acetaminophen (Tylenol -) 650 mg PO Q6H PRN PRN Reason: PAIN LEVEL 1 - 3 CEFTRIAXONE 1 G/50 ML PREMIX (Ceftriaxone 1 Gm-D5w Bag) 50 mls @ 100 mls/hr IVPB DAILY [facility] Sodium Chloride (Normal Saline -) 1,000 mls @ 100 mls/hr IV ASDIR [facility] Last Admin: 03/31/17 08:59 Dose: 200 mls Ibuprofen (Motrin -) 800 mg PO PRN [facility] Ketorolac Tromethamine (Toradol Injection -) 15 mg IVPUSH Q6H PRN PRN Reason: PAIN LEVEL 4 - 6 Stop: 04/03/17 08:59 Ondansetron HCl (Zofran Injection) 4 mg IVPUSH Q8H PRN PRN Reason: NAUSEA Pantoprazole Sodium (Protonix -) 40 mg PO DAILY [facility] Polyethylene Glycol (Miralax (For Daily Use) -) 17 gm PO DAILY [facility] - Objective Vital Signs: Vital Signs Temperature 98.2 F 03/31/17 09:25 Pulse Rate 55 L 03/31/17 09:25 Respiratory Rate 18 03/31/17 09:25 Blood Pressure 106/65 03/31/17 09:25 O2 Sat by Pulse Oximetry (%) 100 03/31/17 09:25 Constitutional: Yes: Well Nourished, No Distress, Calm Cardiovascular: Yes: Regular Rate and Rhythm Respiratory: Yes: Regular Gastrointestinal: Yes: Normal Bowel Sounds, Soft Musculoskeletal: Yes: WNL Extremities: Yes: WNL Edema: No Peripheral Pulses WNL: Yes Neurological: Yes: Alert, Oriented Psychiatric: Yes: Alert, Oriented Labs: CBC, BMP 03/31/17 06:00 03/30/17 06:30 Problem List - Problems (1) UTI (urinary tract infection) Assessment/Plan: -UC- lactobacillus species -seen by ID -IV abx Code(s): N39.0 - URINARY TRACT INFECTION, SITE NOT SPECIFIED (2) Pyelonephritis Assessment/Plan: -pain management -Urology consult for partially obstructing left renal calculus -mild hydronephrosis Code(s): N12 - TUBULO-INTERSTITIAL NEPHRITIS, NOT SPCF ACUTE OR CHRONIC (3) Renal colic on left side Assessment/Plan: -mild hydronephrosis -pain management Code(s): N23 - UNSPECIFIED RENAL COLIC (4) Nephrolithiasis Assessment/Plan: -s/p cystoscopy -IVF -IV abx -Pain management -seen by Urology Code(s): N20.0 - CALCULUS OF KIDNEY Assessment/Plan see problem list
[2017-03-31] MEDS ORDERED: traMADol HCL 50 MG TABLET PO PRN (10:13)
[2017-03-31] MEDS: IBUPROFEN 400 MG TABLET (FP) PO PRN ×2 (12:00→21:49)
[2017-04-01] MEDS: SODIUM CHLORIDE 1,000 ML IV SCH (04:07)
[2017-04-01 07:51] LABS: HEMATOCRIT 34.3 % (32.4-45.2); HEMOGLOBIN 10.7 GM/dL (10.7-15.3); MCH 23.8 pg (25.7-33.7); MCHC 31.1 g/dl (32.0-36.0); MEAN CELL VOLUME 76.5 fl (80-96); MEAN PLT VOLUME 9.8 fl (7.5-11.1); PLATELET COUNT 331 K/MM3 (134-434); RBC 4.48 M/mm3 (3.60-5.2)
[2017-04-01 08:10] LABS: CHLORIDE 105 mmol/L (98-107); POTASSIUM 4.3 mmol/L (3.5-5.1); SODIUM 140 mmol/L (136-145)
[2017-04-01 08:23] LABS: ALBUMIN 2.9 g/dl (3.4-5.0); ALK PHOS 108 U/L (45-117); ANION GAP 12 (8-16); BILIRUBIN,TOTAL 0.4 mg/dL (0.2-1.0); BLOOD UREA NITROGEN 15 mg/dL (7-18); CALCIUM 8.7 mg/dL (8.5-10.1); CO2 23 mmol/L (21-32); CREATININE 0.6 mg/dL (0.55-1.02); GLUCOSE,RANDOM 98 mg/dL (74-106); SGOT/AST 9 U/L (15-37); SGPT/ALT 16 U/L (12-78); TOT PROT 6.9 g/dl (6.4-8.2)
[2017-04-01] MEDS: PANTOPRAZOLE 40 MG TABLET (FP) PO SCH (09:15)
[2017-04-01] MEDS: CEFTRIAXONE 1 G/50 ML PREMIX 50 ML IVPB SCH (09:15)
[2017-04-01] MEDS: POLYETHYLENE GLYCOL 3350 119 GM BTL PO SCH (09:16)
--- NOTE | 2017-04-01 09:42 | PN ---
Progress Note (short form) - Note Progress Note: feels well no flank pain but has discomfort when she urinates Vital Signs Period Temp Pulse Resp BP Sys/Salas Pulse Ox Last 24 Hr 97.8 F-98.3 F 55-93 20-20 110-127/52-64 100-100 cor-rrr lungs clear abd soft,nt no cvat no suprapubic discomfort no edema CBC, BMP 04/01/17 06:30 04/01/17 06:30 Current Medications Acetaminophen (Tylenol -) 650 mg PO Q6H PRN PRN Reason: PAIN LEVEL 1 - 3 Last Admin: 03/31/17 17:11 Dose: 650 mg CEFTRIAXONE 1 G/50 ML PREMIX (Ceftriaxone 1 Gm-D5w Bag) 50 mls @ 100 mls/hr IVPB DAILY [facility] Last Admin: 04/01/17 09:15 Dose: 100 mls/hr Sodium Chloride (Normal Saline -) 1,000 mls @ 100 mls/hr IV ASDIR [facility] Last Admin: 04/01/17 04:07 Dose: 100 mls/hr Ibuprofen (Motrin -) 800 mg PO Q6H PRN PRN Reason: PAIN Last Admin: 03/31/17 21:49 Dose: 800 mg Ondansetron HCl (Zofran Injection) 4 mg IVPUSH Q8H PRN PRN Reason: NAUSEA Pantoprazole Sodium (Protonix -) 40 mg PO DAILY [facility] Last Admin: 04/01/17 09:15 Dose: 40 mg Polyethylene Glycol (Miralax (For Daily Use) -) 17 gm PO DAILY [facility] Last Admin: 04/01/17 09:16 Dose: Not Given Tramadol HCl (Ultram -) 50 mg PO Q8H PRN PRN Reason: PAIN LEVEL 7 - 10 a/p s/p cystoscopy and stent for obstructive nephrolithiasis- pyuria noted in OR would send UA and CULTURE leukocytosis noted continue ceftriaxone and f/u labs in am continue IVF
--- NOTE | 2017-04-01 10:12 | PN ---
Progress Note, Physician Chief Complaint: Left flank pain UTI Nephrolithiasis History of Present Illness: NAD, resting in bed seen by ID IVF IV abx constipated- on miralax Had cystoscopy yesterday no more flank pain, just pain on urination UA/UC ordered by ID leukocytosis afebrile - Current Medication List Current Medications: Active Medications Acetaminophen (Tylenol -) 650 mg PO Q6H PRN PRN Reason: PAIN LEVEL 1 - 3 Last Admin: 03/31/17 17:11 Dose: 650 mg CEFTRIAXONE 1 G/50 ML PREMIX (Ceftriaxone 1 Gm-D5w Bag) 50 mls @ 100 mls/hr IVPB DAILY [facility] Last Admin: 04/01/17 09:15 Dose: 100 mls/hr Sodium Chloride (Normal Saline -) 1,000 mls @ 100 mls/hr IV ASDIR [facility] Last Admin: 04/01/17 04:07 Dose: 100 mls/hr Ibuprofen (Motrin -) 800 mg PO Q6H PRN PRN Reason: PAIN Last Admin: 03/31/17 21:49 Dose: 800 mg Ondansetron HCl (Zofran Injection) 4 mg IVPUSH Q8H PRN PRN Reason: NAUSEA Pantoprazole Sodium (Protonix -) 40 mg PO DAILY [facility] Last Admin: 04/01/17 09:15 Dose: 40 mg Polyethylene Glycol (Miralax (For Daily Use) -) 17 gm PO DAILY [facility] Last Admin: 04/01/17 09:16 Dose: Not Given Tramadol HCl (Ultram -) 50 mg PO Q8H PRN PRN Reason: PAIN LEVEL 7 - 10 - Objective Vital Signs: Vital Signs Temperature 98.2 F 04/01/17 07:50 Pulse Rate 55 L 04/01/17 07:50 Respiratory Rate 20 04/01/17 07:50 Blood Pressure 115/52 04/01/17 07:50 O2 Sat by Pulse Oximetry (%) 100 03/31/17 21:00 Constitutional: Yes: Well Nourished, No Distress, Calm Cardiovascular: Yes: Regular Rate and Rhythm Respiratory: Yes: Regular Gastrointestinal: Yes: Normal Bowel Sounds, Soft Genitourinary: Yes: Hematuria Musculoskeletal: Yes: WNL Extremities: Yes: WNL Edema: No Peripheral Pulses WNL: Yes Neurological: Yes: Alert, Oriented Psychiatric: Yes: Alert, Oriented Labs: CBC, BMP 04/01/17 06:30 04/01/17 06:30 Problem List - Problems (1) UTI (urinary tract infection) Assessment/Plan: -UC- lactobacillus species -seen by ID -IV abx -repeat UA/UC Code(s): N39.0 - URINARY TRACT INFECTION, SITE NOT SPECIFIED (2) Pyelonephritis Assessment/Plan: -pain management -cystoscopy yesterday Code(s): N12 - TUBULO-INTERSTITIAL NEPHRITIS, NOT SPCF ACUTE OR CHRONIC (3) Renal colic on left side Assessment/Plan: -pain management Code(s): N23 - UNSPECIFIED RENAL COLIC (4) Nephrolithiasis Assessment/Plan: -s/p cystoscopy -IVF -IV abx -Pain management -seen by Urology Code(s): N20.0 - CALCULUS OF KIDNEY (5) Leukocytosis Assessment/Plan: -seen by ID -IV abx -UA/UC -IVF -afebrile Code(s): D72.829 - ELEVATED WHITE BLOOD CELL COUNT, UNSPECIFIED Qualifiers: Leukocytosis type: unspecified Qualified Code(s): D72.829 - Elevated white blood cell count, unspecified Assessment/Plan see problem list
--- NOTE | 2017-04-01 12:50 | PN ---
Progress Note, Physician Chief Complaint: Pt. resting comfortably. No GA complaints. - Current Medication List Current Medications: Active Medications Acetaminophen (Tylenol -) 650 mg PO Q6H PRN PRN Reason: PAIN LEVEL 1 - 3 Last Admin: 03/31/17 17:11 Dose: 650 mg CEFTRIAXONE 1 G/50 ML PREMIX (Ceftriaxone 1 Gm-D5w Bag) 50 mls @ 100 mls/hr IVPB DAILY [facility] Last Admin: 04/01/17 09:15 Dose: 100 mls/hr Sodium Chloride (Normal Saline -) 1,000 mls @ 100 mls/hr IV ASDIR [facility] Last Admin: 04/01/17 04:07 Dose: 100 mls/hr Ibuprofen (Motrin -) 800 mg PO Q6H PRN PRN Reason: PAIN Last Admin: 03/31/17 21:49 Dose: 800 mg Ondansetron HCl (Zofran Injection) 4 mg IVPUSH Q8H PRN PRN Reason: NAUSEA Pantoprazole Sodium (Protonix -) 40 mg PO DAILY [facility] Last Admin: 04/01/17 09:15 Dose: 40 mg Polyethylene Glycol (Miralax (For Daily Use) -) 17 gm PO DAILY [facility] Last Admin: 04/01/17 09:16 Dose: Not Given Tramadol HCl (Ultram -) 50 mg PO Q8H PRN PRN Reason: PAIN LEVEL 7 - 10 - Objective Vital Signs: Vital Signs Temperature 98.2 F 04/01/17 09:00 Pulse Rate 53 L 04/01/17 09:00 Respiratory Rate 20 04/01/17 09:00 Blood Pressure 124/58 04/01/17 09:00 O2 Sat by Pulse Oximetry (%) 100 04/01/17 09:00 Constitutional: Yes: Well Nourished, No Distress, Calm Musculoskeletal: Yes: WNL Neurological: Yes: WNL, Alert, Oriented Labs: CBC, BMP 04/01/17 06:30 04/01/17 06:30 Assessment/Plan POD#1 s/p Cystoscopy with ureteral stent placement under GA. Doing well. D/C from anesthesia care.
[2017-04-01 14:32] LABS: URINE APPEARANCE SLCLOUDY; URINE BILIRUBIN NEGATIVE (NEGATIVE); URINE BLOOD 3+ (NEGATIVE); URINE COLOR LTYELLOW; URINE GLUCOSE (UA) NEGATIVE (NEGATIVE); URINE KETONE NEGATIVE (NEGATIVE); URINE NITRITE NEGATIVE (NEGATIVE); URINE UROBILINOGEN NEGATIVE mg/dL (0.2-1.0)
[2017-04-01 15:03] LABS: URINE LEUK ESTERASE 2+ (NEGATIVE); URINE PROTEIN 1+ (NEGATIVE)
[2017-04-01 15:05] LABS: EPI CELLS RARE /HPF (FEW)
[2017-04-01] MEDS: ACETAMINOPHEN 325 MG TABLET (FP) PO PRN (16:26)
[2017-04-01] MEDS: IBUPROFEN 400 MG TABLET (FP) PO PRN (20:55)
[2017-04-02] MEDS: SODIUM CHLORIDE 1,000 ML IV SCH (03:45)
[2017-04-02 08:07] LABS: HEMATOCRIT 33.8 % (32.4-45.2); HEMOGLOBIN 10.7 GM/dL (10.7-15.3); MCH 24.2 pg (25.7-33.7); MCHC 31.7 g/dl (32.0-36.0); MEAN CELL VOLUME 76.2 fl (80-96); MEAN PLT VOLUME 9.7 fl (7.5-11.1); PLATELET COUNT 307 K/MM3 (134-434); RBC 4.44 M/mm3 (3.60-5.2); RDW 16.1 % (11.6-15.6); WHITE BLOOD COUNT 14.1 K/mm3 (4.0-10.0)
[2017-04-02 08:31] LABS: ALBUMIN 2.8 g/dl (3.4-5.0); ANION GAP 7 (8-16); BLOOD UREA NITROGEN 18 mg/dL (7-18); CALCIUM 7.9 mg/dL (8.5-10.1); CHLORIDE 106 mmol/L (98-107); CO2 26 mmol/L (21-32); CREATININE 0.6 mg/dL (0.55-1.02); GLUCOSE,RANDOM 72 mg/dL (74-106); POTASSIUM 4.3 mmol/L (3.5-5.1); SGOT/AST 7 U/L (15-37); SGPT/ALT 17 U/L (12-78); SODIUM 139 mmol/L (136-145)
[2017-04-02 08:33] LABS: ALK PHOS 98 U/L (45-117); BILIRUBIN,TOTAL 0.3 mg/dL (0.2-1.0)
[2017-04-02] MEDS: PANTOPRAZOLE 40 MG TABLET (FP) PO SCH (09:34)
[2017-04-02] MEDS: POLYETHYLENE GLYCOL 3350 119 GM BTL PO SCH (09:34)
[2017-04-02] MEDS: CEFTRIAXONE 1 G/50 ML PREMIX 50 ML IVPB SCH (09:34)
--- NOTE | 2017-04-02 09:50 | DS ---
Physical Examination Vital Signs: Vital Signs Temperature 97.6 F 04/02/17 07:31 Pulse Rate 52 L 04/02/17 07:31 Respiratory Rate 20 04/02/17 07:31 Blood Pressure 115/65 04/02/17 07:31 O2 Sat by Pulse Oximetry (%) 99 04/01/17 21:00 Constitutional: Yes: Well Nourished, No Distress, Calm Cardiovascular: Yes: Regular Rate and Rhythm Respiratory: Yes: Regular Gastrointestinal: Yes: Normal Bowel Sounds, Soft Musculoskeletal: Yes: WNL Extremities: Yes: WNL Edema: No Peripheral Pulses WNL: Yes Neurological: Yes: Alert, Oriented Psychiatric: Yes: Alert, Oriented Labs: CBC, BMP 04/02/17 06:30 04/02/17 06:30 Discharge Summary Reason For Visit: PYELONEPRITIS Current Active Problems DVT prophylaxis (Acute) Pyelonephritis (Acute) Renal colic on left side (Acute) UTI (urinary tract infection) (Acute) Hospital Course: 21 y/o young woman presents to the ED for L- flank pain. Patient was seen at [facility] for the same started on Bactrim po without relief. The patient reports increased pain, dysuria, constipation since taking Tramadol. Patient denies fever, chills, cough, SOB, CP, AP, N/V/D. During her stay she was evaluated by Urology who performed cystoscopy to remove urethral stone She was also treated with IV abx. Condition: Stable - Instructions Referrals: Chris Umana MD [Staff Physician] - Jasper George MD [Primary Care Provider] - Disposition: HOME - Home Medications Comprehensive Discharge Medication List: Ambulatory Orders Tamsulosin HCl [Flomax] 0.4 mg PO DAILY #5 cap.er.24h 03/27/17 Tramadol HCl 50 mg PO Q6H #12 tablet MDD 200mg 03/27/17 Ibuprofen [Motrin -] 800 mg PO PRN 03/29/17
[2017-04-02 10:20] VITALS: BP 110/52; PULSE 58; TEMP 98.5
== END 2017-04-02 11:31 | disposition home or self-care (01) | DRG 446 ==
LOC: JER 02:49 → JERBED 05:58 → J8W 22:51 → OBSVTOIN 03-31 09:56
PROVIDERS: ADMIT Internal Medicine; ATTEND Family Medicine
PROC: BT0BZZZ Plain Radiography of Bladder and Urethra (ICD-10-PCS; 2017-03-31)
PROC: 0TJB8ZZ Inspection of Bladder, Via Natural or Artificial Opening Endoscopic (ICD-10-PCS; 2017-03-31)
PROC: 0TC78ZZ Extirpation of Matter from Left Ureter, Via Natural or Artificial Opening Endoscopic (ICD-10-PCS; principal; 2017-03-31 07:30)
PROC: 0T778DZ Dilation of Left Ureter with Intraluminal Device, Via Natural or Artificial Opening Endoscopic (ICD-10-PCS; 2017-03-31 07:30)
DX: N20.1 Calculus of ureter (principal); N39.0 Urinary tract infection, site not specified; D72.828 Other elevated white blood cell count
CPT/HCPCS: 36415; 76000-TC-FY; 80048; 80053; 81003; 81015; 84703; 85025; 85027; 87086; 87389; 94760; 99285-25; G0378; J1644

== ENCOUNTER 2017-04-30 17:25 | Emergency (ER) | payer OTHER ==
--- NOTE | 2017-04-30 17:41 | PDOC ---
Rapid Medical Evaluation Time Seen by Provider: 04/30/17 17:38 Medical Evaluation: Allergies Allergy/AdvReac Type Severity Reaction Status Date / Time No Known Allergies Allergy Verified 04/30/17 17:38 I have performed a brief in-person evaluation of this patient. The patient presents with a chief complaint of: left flank pain with hematuria today Pertinent physical exam findings: left flank pain. No CVA TTP b/l. I have ordered the following: UA/culture, hcg, labs The patient will proceed to the ED for further evaluation.
[2017-04-30 17:49] VITALS: BMI 31.6
--- NOTE | 2017-04-30 17:49 | PDOC ---
History of Present Illness - General Chief Complaint: Pain Stated Complaint: HEMATURIA Time Seen by Provider: 04/30/17 17:38 - History of Present Illness Initial Comments: 21 year old female with history of kidney stones (had a left uretral stent with stone retrieval on 03/31/17) presenting with left sided flank pain and hematuria since this AM. States that she has had chronic pain since the stent placement that she treats with Tylenol and Motrin. Typically the pain resolves with these treatments but today the pain was exacerbated during episodes of urination. Denies dysuria in itself but the pain on urination presents in the left flank. Denies fever, lightheadedness, syncope, chest pain, palpitations, or other sick symptoms. Her urologist is Dr. Larry Rocha but he is currently out of the office. 04/30/17 18:10 Past History - Past Medical History Allergies/Adverse Reactions: Allergies Allergy/AdvReac Type Severity Reaction Status Date / Time No Known Allergies Allergy Verified 04/30/17 17:38 Home Medications: Ambulatory Orders Ibuprofen [Motrin -] 800 mg PO PRN 03/29/17 Doxycycline Hyclate [Vibramycin -] 100 mg PO BID #14 cap 05/01/17 Asthma: No Cancer: No Cardiac Disorders: No COPD: No Diabetes: No HTN: No Seizures: No Thyroid Disease: No - Reproductive History (#): 1 Para: 0 Spontaneous : 0 - Immunization History Immunization Up to Date: Yes - Suicide/Smoking/Psychosocial Hx Smoking Status: No Smoking History: Never smoked Have you smoked in the past 12 months: No Number of Cigarettes Smoked Daily: 0 Hx Alcohol Use: No Drug/Substance Use Hx: No Substance Use Type: None Hx Substance Use Treatment: No Review of Systems - Review of Systems Constitutional: No: Chills, Diaphoresis, Fever HEENTM: No: Blurred Vision, Recent change in vision Respiratory: No: Cough, Shortness of Breath, Wheezing Cardiac (ROS): No: Chest Pain, Edema, Chest Tightness ABD/GI: No: Constipated, Diarrhea, Nausea, Vomiting : Yes: Flank Pain, Hematuria. No: Dysuria, Discharge Musculoskeletal: No: Back Pain, Muscle Pain, Muscle Weakness Integumentary: No: Bruising, Erythema, Lesions Neurological: No: Headache, Numbness Psychiatric: No: Anxiety, Depression *Physical Exam - Vital Signs Last Vital Signs Temp Pulse Resp BP Pulse Ox 97.8 F 84 19 120/68 99 04/30/17 17:38 04/30/17 17:38 04/30/17 17:38 04/30/17 17:38 04/30/17 17:38 - Physical Exam General Appearance: Yes: Nourished, Appropriately Dressed. No: Apparent Distress HEENT: positive: EOMI, MINDY, Normal ENT Inspection, Normal Voice Neck: positive: Trachea midline, Normal Thyroid, Supple. negative: Tender, Rigid Respiratory/Chest: positive: Lungs Clear, Normal Breath Sounds, Respiratory Distress. negative: Chest Tender, Accessory Muscle Use Cardiovascular: positive: Regular Rhythm, Regular Rate Gastrointestinal/Abdominal: positive: Normal Bowel Sounds, Flat, Soft. negative : Tender Musculoskeletal: positive: Normal Inspection. negative: CVA Tenderness, Decreased Range of Motion Extremity: positive: Normal Capillary Refill, Normal Inspection, Normal Range of Motion. negative: Tender Integumentary: positive: Normal Color, Dry, Warm Neurologic: positive: Fully Oriented, Alert, Normal Mood/Affect, Normal Response , Motor Strength / ED Treatment Course - LABORATORY CBC & Chemistry Diagram: 04/30/17 18:18 04/30/17 18:18 Medical Decision Making - Medical Decision Making 21 year old female with history or uretral calculi with stent in place in left ureter and presentation of hematuria and worsenign flank pain. Labs, UA, and US pending during signout to Dr. Gannon. 05/01/17 08:47 *DC/Admit/Observation/Transfer Diagnosis at time of Disposition: Dysuria Hematuria Qualifiers: Hematuria type: gross Qualified Code(s): R31.0 - Gross hematuria - Discharge Dispostion Disposition: HOME Condition at time of disposition: Stable - Prescriptions Prescriptions: Doxycycline Hyclate [Vibramycin -] 100 mg PO BID #14 cap - Referrals Referrals: Eugenio Hightower MD [Staff Physician] - Jasper George MD [Primary Care Provider] - - Patient Instructions Printed Discharge Instructions: DI for Hematuria Additional Instructions: Please return to the emergency department with any new or worsening symptoms or concerns. Please follow up with your primary care physician within 72 hours. Please follow up with urology within one week. Please take antibiotic twice per day for 7 days. - Post Discharge Activity
[2017-04-30 18:16] LABS: URINE APPEARANCE CLOUDY; URINE BILIRUBIN NEGATIVE (NEGATIVE); URINE BLOOD 3+ (NEGATIVE); URINE COLOR RED; URINE GLUCOSE (UA) NEGATIVE (NEGATIVE); URINE KETONE NEGATIVE (NEGATIVE); URINE NITRITE NEGATIVE (NEGATIVE); URINE UROBILINOGEN NEGATIVE mg/dL (0.2-1.0)
[2017-04-30 18:18] LABS: HCG,QUALITATIVE URINE NEGATIVE
[2017-04-30 18:30] LABS: BASO % 0.4 % (0-2.0); EOS % 2.4 % (0-4.5); HEMATOCRIT 37.2 % (32.4-45.2); HEMOGLOBIN 12.1 GM/dL (10.7-15.3); LYMPH % 28.9 % (8-40); MCH 25.1 pg (25.7-33.7); MCHC 32.6 g/dl (32.0-36.0); MEAN PLT VOLUME 9.3 fl (7.5-11.1); MONO % 5.7 % (3.8-10.2); NEUT % 62.6 % (42.8-82.8); PLATELET COUNT 372 K/MM3 (134-434); RBC 4.83 M/mm3 (3.60-5.2); RDW 16.5 % (11.6-15.6); WHITE BLOOD COUNT 15.7 K/mm3 (4.0-10.0)
[2017-04-30 18:52] LABS: URINE LEUK ESTERASE 2+ (NEGATIVE); URINE PROTEIN 2+ (NEGATIVE)
--- NOTE | 2017-04-30 19:02 | PDOC ---
Attending Attestation - [facility] HPI: 04/30/17 19:02 The patient is a 21 year old female with a significant PMH of kidney stones ( had a left ureteral stent with stone retrieval on 03/31/17) who presents to the emergency department with left sided flank pain and hematuria that began approximately this morning. The patient states the left sided flank pain is exacerbated with urination. The patient reports she had a stent placed on and has been experiencing pain since. The patient took Tylenol and Motrin with no relief of her symptoms today. The patient denies chest pain, shortness of breath, headache and dizziness. Denies fever, chills, nausea, vomit, diarrhea and constipation. Denies dysuria, frequency, and urgency. Allergies: NKA Past surgical history: None reported Social history: No reported alcohol, drug or cigarette use. - Physicial Exam PE: 04/30/17 19:02 GENERAL/CONSTITUTIONAL: No fever or chills. No weakness. HEAD, EYES, EARS, NOSE AND THROAT: No change in vision. No ear pain or discharge. No sore throat. CARDIOVASCULAR: No chest pain or shortness of breath. RESPIRATORY: No cough, wheezing, or hemoptysis. GASTROINTESTINAL: No nausea, vomiting, diarrhea or constipation. BACK: (+) Left sided flank pain. GENITOURINARY: (+) Hematuria. No dysuria or frequency. MUSCULOSKELETAL: No joint or muscle swelling or pain. No neck or back pain. SKIN: No rash NEUROLOGIC: No headache, vertigo, loss of consciousness, or change in strength/ sensation. ENDOCRINE: No increased thirst. No abnormal weight change. HEMATOLOGIC/LYMPHATIC: No anemia, easy bleeding, or history of blood clots. ALLERGIC/IMMUNOLOGIC: No hives or skin allergy. <Rosa Gilbert - Last Filed: 04/30/17 19:02> - Resident Resident Name: Polly Craig - ED Attending Attestation I have performed the following: I have examined & evaluated the patient, The case was reviewed & discussed with the resident, I agree w/resident's findings & plan, Exceptions are as noted - Medical Decision Making Pt with recent placement of ureteral stent, now with hematuria and pain. Symptoms are poss side effects of the stent, however, will obtain UA and kidney sono to further evaluate the stent, r/o hydro, and r/o UTI. <Latosha Aguiar - Last Filed: 05/01/17 21:38>
[2017-04-30 19:18] LABS: ALBUMIN 3.7 g/dl (3.4-5.0); ANION GAP 5 (8-16); BILIRUBIN,TOTAL 0.2 mg/dL (0.2-1.0); BLOOD UREA NITROGEN 12 mg/dL (7-18); CALCIUM 9.5 mg/dL (8.5-10.1); CHLORIDE 104 mmol/L (98-107); CO2 30 mmol/L (21-32); CREATININE 0.6 mg/dL (0.55-1.02); GLUCOSE,RANDOM 92 mg/dL (74-106); POTASSIUM 4.2 mmol/L (3.5-5.1); SGOT/AST 14 U/L (15-37); SGPT/ALT 24 U/L (12-78); SODIUM 139 mmol/L (136-145); TOT PROT 7.7 g/dl (6.4-8.2)
[2017-04-30 19:19] LABS: ALK PHOS 149 U/L (45-117)
[2017-04-30 19:28] LABS: EPI CELLS RARE /HPF (FEW); URINE MUCUS MANY
--- NOTE | 2017-04-30 20:26 | PDOC ---
*Physical Exam - Vital Signs Last Vital Signs Temp Pulse Resp BP Pulse Ox 97.8 F 84 19 120/68 99 04/30/17 17:38 04/30/17 17:38 04/30/17 17:38 04/30/17 17:38 04/30/17 17:38 - Physical Exam Comments: 04/30/17 20:37 GENERAL: Awake, alert, and fully oriented, in no acute distress HEAD: No signs of trauma, normocephalic, atraumatic EYES: PERRLA, EOMI, sclera anicteric, conjunctiva clear ENT: Hearing grossly normal, nares patent, oropharynx clear without exudates. Moist mucosa NECK: Normal ROM, supple, no lymphadenopathy, JVD, or masses LUNGS: No distress, speaks full sentences, clear to auscultation bilaterally HEART: Regular rate and rhythm, normal S1 and S2, no murmurs, rubs or gallops, peripheral pulses normal and equal bilaterally. ABDOMEN: + Suprapubic ttp. Soft, nontender, normoactive bowel sounds. No guarding, no rebound. No masses. Neg CVA ttp. EXTREMITIES : Normal inspection, Normal range of motion, no edema. No clubbing or cyanosis. SKIN: Warm, Dry, normal turgor, no rashes or lesions noted ED Treatment Course - LABORATORY CBC & Chemistry Diagram: 04/30/17 18:18 04/30/17 18:18 - ADDITIONAL ORDERS Additional order review: Laboratory Results 04/30/17 04/30/17 18:18 17:47 Sodium 139 Potassium 4.2 Chloride 104 Carbon Dioxide 30 Anion Gap 5 L BUN 12 Creatinine 0.6 Creat Clearance w eGFR > 60 Random Glucose 92 Calcium 9.5 Total Bilirubin 0.2 D AST 14 L ALT 24 Alkaline Phosphatase 149 H Total Protein 7.7 Albumin 3.7 Urine Color Red Urine Appearance Cloudy Urine pH 8.0 Ur Specific [place] 1.023 Urine Protein 2+ H Urine Glucose (UA) Negative Urine Ketones Negative Urine Blood 3+ H Urine Nitrite Negative Urine Bilirubin Negative Urine Urobilinogen Negative Ur Leukocyte Esterase 2+ H Urine WBC (Auto) 72 Urine RBC (Auto) 6235 Ur Epithelial Cells Rare Urine Mucus Many Urine HCG, Qual Negative 04/30/17 18:18 RBC 4.83 MCV 77.0 L MCHC 32.6 RDW 16.5 H MPV 9.3 Neutrophils % 62.6 Lymphocytes % 28.9 D Monocytes % 5.7 Eosinophils % 2.4 D Basophils % 0.4 - RADIOLOGY Radiology Studies Ordered: Category Date Time Status KIDNEY / RENAL US [US] Stat Ultrasound 04/30/17 20:14 Ordered PELVIC / BLADDER US [US] Stat Ultrasound 04/30/17 20:15 Ordered Medical Decision Making - Medical Decision Making 04/30/17 20:23 21 year old F w/ h/o L kidney stones s/p left uretral stent and stone retrieval (03/31/17) p/w hematuria beginning thi AM. Pt. reports exacerbation dysuria today while urinating. Denies N/V, F/C, flank pain, CP, SOB, abdominal pain, diarrhea, constipation, lightheadedness, weakness, sensory changes. ED Course so far has been noteable for elevated WBC~15.7 ( 14.1 ~04/02), nml Cr/BUN , and UA with 3+ blood ,6235 RBC, 2+ Leuk Est, 72 WBC, nitrite neg. Patient scheduled in August/2017 for ESWL, and later stent removal. CT AP (03/26/17) 3-4 mm L ureteral proximal stone with mild hydronephrosis. No growth obtained on previous midstream UC. Recently completed 7 day antibiotic. Has recieved ceftriaxone, Bactrim, and Levaquin on most recent feburary admissions and ED visits. Hemoducnamically stable with suprapubic ttp. Pt. with probable cystitis. Will obtain imaging to r/o hydonephrosis in setting of recent nephrolithiasis. Low suspicion of pyelo; pt. non toxic, AF, and w/out CVA ttp. Received handoff from Dr. Craig. ED Course: Renal/ Bladder U/S: 04/30/17 20:32 Patient stable and advised to ready for d/c with return precautions. Advised to f/u with urology. 05/01/17 00:10 Sent antibiotic to pharmacy. *DC/Admit/Observation/Transfer Diagnosis at time of Disposition: Dysuria Hematuria Qualifiers: Hematuria type: gross Qualified Code(s): R31.0 - Gross hematuria - Discharge Dispostion Disposition: HOME Condition at time of disposition: Stable Admit: No - Prescriptions Prescriptions: Doxycycline Hyclate [Vibramycin -] 100 mg PO BID #14 cap - Referrals Referrals: Jasper George MD [Primary Care Provider] - Eugenio Hightower MD [Staff Physician] - - Patient Instructions Printed Discharge Instructions: DI for Hematuria Additional Instructions: Please return to the emergency department with any new or worsening symptoms or concerns. Please follow up with your primary care physician within 72 hours. Please follow up with urology within one week. Please take antibiotic twice per day for 7 days. - Post Discharge Activity - Attestations Physician Attestion: 05/01/17 00:12 I attest to the information provided in this note.
[2017-05-01 00:21] VITALS: BP 110/78; PULSE 86; TEMP 98.1
== END 2017-05-01 00:19 | disposition home or self-care (01) ==
LOC: JER 17:25
DX: R31.9 Hematuria, unspecified (principal); R30.0 Dysuria; Z87.442 Personal history of urinary calculi
CPT/HCPCS: 36415; 76775-TC; 76856-TC; 80053; 81003; 81015; 84703; 85025; 87086; 99283-25

== ENCOUNTER 2017-05-18 07:21 | Emergency (ER) | payer OTHER ==
[2017-05-18 07:55] VITALS: BMI 32.0
--- NOTE | 2017-05-18 08:24 | PDOC ---
History of Present Illness - General History Source: Patient Exam Limitations: No Limitations - History of Present Illness Initial Comments: 05/18/17 09:34 The patient is a 22 year old female with a significant past medical history of left ureter stent and left pyloric kidney stones who presents to the emergency department complaining of left pain beginning approximately 2 weeks ago. The patient describes intermittent episodes of sharp pain in her left side. She reports movement exacerbates the pain and endorses alleviation upon rest. The patient reports the pain was so bad I could not even go to work. The patient reports associated symptoms of nausea, mild hematuria, and dysuria which began approximately 3 days ago. Of note, the patient reports receiving a left ureter stent in late March. The patient denies chest pain, shortness of breath, headache, and dizziness. Denies fevers, chills, vomiting, diarrhea, and constipation. Denies urinary frequency and urgency. Allergies: NKA Past surgical history: lt ureter stent Social history: No reported cigarette, alcohol, or drug use. PCP: Dr. Jasper George Urologist: Dr. Dash <Ayana Jaime - Last Filed: 05/18/17 10:33> <Abdulaziz Le - Last Filed: 05/18/17 14:51> - General Chief Complaint: Pain, Acute Stated Complaint: KIDNEY PAIN Time Seen by Provider: 05/18/17 08:11 Past History <Ayana Jaime - Last Filed: 05/18/17 10:33> - Past Medical History Asthma: No Cancer: No Cardiac Disorders: No COPD: No DVT: No Diabetes: No HTN: No Kidney Stones: Yes Seizures: No Thyroid Disease: No - Reproductive History (#): 1 Para: 0 Spontaneous : 0 - Immunization History Immunization Up to Date: Yes - Suicide/Smoking/Psychosocial Hx Smoking Status: No Smoking History: Never smoked Have you smoked in the past 12 months: No Number of Cigarettes Smoked Daily: 0 Information on smoking cessation initiated: No Hx Alcohol Use: No Drug/Substance Use Hx: No Substance Use Type: None Hx Substance Use Treatment: No <Abdulaziz Le - Last Filed: 05/18/17 14:51> - Past Medical History Allergies/Adverse Reactions: Allergies Allergy/AdvReac Type Severity Reaction Status Date / Time No Known Allergies Allergy Verified 05/18/17 07:47 Home Medications: Ambulatory Orders NK [No Known Home Medication] 05/18/17 Review of Systems - Review of Systems Able to Perform ROS?: Yes Comments:: 05/18/17 09:35 A complete review of 10 out of 10 review of systems is taken and is negative apart from what is previously mentioned below and in the HPI. <Ayana Jaime - Last Filed: 05/18/17 10:33> *Physical Exam - Vital Signs Last Vital Signs Temp Pulse Resp BP Pulse Ox 97.7 F 61 18 114/64 100 05/18/17 07:47 05/18/17 07:47 05/18/17 07:47 05/18/17 07:47 05/18/17 07:47 - Physical Exam Comments: Vitals: Triage Vital signs reviewed General Appearance: no acute distress, well nourished well developed, Head: Atraumatic, normocephalic Eyes: Pupils equal reactive round, extraocular movement intact Neck: Supple;No Nuchal rigidity Chest Wall: Nontender Cardiac: Regular rate and rhythm, no murmurs, no rubs, no gallops, Lungs: Clear to auscultation bilateral, good air movement bilaterally, Back: +Left CVA tenderness. Abdomen: Soft, nondistended, normal bowel sounds, nontender to palpation Rectal: Exam deferred Extremities: Full range of motion to all extremities, no cyanosis, clubbing, or edema Skin: Warm and dry, no rashes or lesions, no petechiae Psych: normal mood, normal affect <MinormarioAyana - Last Filed: 05/18/17 10:33> - Vital Signs Last Vital Signs Temp Pulse Resp BP Pulse Ox 97.7 F 61 18 114/64 100 05/18/17 07:47 05/18/17 07:47 05/18/17 07:47 05/18/17 07:47 05/18/17 07:47 <Abdulaziz Le - Last Filed: 05/18/17 14:51> ED Treatment Course - LABORATORY CBC & Chemistry Diagram: 05/18/17 08:51 05/18/17 08:51 - ADDITIONAL ORDERS Additional order review: Laboratory Results 05/18/17 05/18/17 05/18/17 08:51 08:51 08:51 Sodium 140 Potassium 4.2 Chloride 106 Carbon Dioxide 29 Anion Gap 5 L BUN 8 Creatinine 0.5 L Creat Clearance w eGFR > 60 Random Glucose 93 Calcium 8.7 Total Bilirubin 0.3 D AST 13 L ALT 27 Alkaline Phosphatase 148 H Total Protein 7.6 Albumin 3.5 Urine Color Ltyellow Urine Appearance Slcloudy Urine pH 6.0 D Ur Specific [place] 1.015 Urine Protein 2+ H Urine Glucose (UA) Negative Urine Ketones Negative Urine Blood 3+ H Urine Nitrite Negative Urine Bilirubin Negative Urine Urobilinogen Negative Ur Leukocyte Esterase 2+ H Urine WBC (Auto) 26 Urine RBC (Auto) 497 Ur Epithelial Cells Rare Urine Mucus Moderate Urine HCG, Qual Negative 05/18/17 08:51 RBC 4.86 MCV 77.3 L MCHC 32.2 RDW 16.5 H MPV 9.3 Neutrophils % 72.4 Lymphocytes % 21.4 D Monocytes % 4.5 Eosinophils % 1.4 Basophils % 0.3 <Ayana Jaime - Last Filed: 05/18/17 10:33> - LABORATORY CBC & Chemistry Diagram: 05/18/17 08:51 05/18/17 08:51 <Abdulaziz Le - Last Filed: 05/18/17 14:51> Medical Decision Making - Medical Decision Making The patient is a 22 year old female with a significant past medical history of left ureter stent and left pyloric kidney stones who presents to the emergency department complaining of left pain beginning approximately 2 weeks ago. Plan to obtain labs, urine, and to contact Dr. Dash in regards to removing stent. Paged Dr. Freeman at 10:25. 05/18/17 10:33 <Ayana Jaime - Last Filed: 05/18/17 10:33> - Medical Decision Making D/w Dr. Freeman Elevated WBC and UA results discussed. No indications for antibiotics at this time given no fever, pt is pain free, and WA tolerating fluids and food. Dr. Freeman will see patient tomorrow to remove stent we'll then put patient on antibiotics after stent removal Findings, the need for follow-up and strict return instructions discussed with patient. 05/18/17 14:50 <Abdulaziz Le - Last Filed: 05/18/17 14:51> *DC/Admit/Observation/Transfer - Attestations Scribe Attestion: Documentation prepared by Ayana Jaime, acting as spanish medical interpreter for Abdulaziz Le MD. <Ayana Jaime - Last Filed: 05/18/17 10:33> - Discharge Dispostion Admit: No <Abdulaziz Le - Last Filed: 05/18/17 14:51> Diagnosis at time of Disposition: disharge Pain due to ureteral stent Qualifiers: Encounter type: initial encounter Qualified Code(s): T83.84XA - Pain due to genitourinary prosthetic devices, implants and grafts, initial encounter - Referrals Referrals: Jasper George MD [Primary Care Provider] - - Patient Instructions Printed Discharge Instructions: DI for Ureteral Stent Placement Additional Instructions: Drink plenty of fluids. Take [id number] Aleve as directed on package. Follow-up tomorrow with your urologist to have your stent removed. Return to ED for any fever vomiting severe uncontrollable pain or for any concerns. - Post Discharge Activity Forms/Work/School Notes: Back to Work
[2017-05-18] MEDS ORDERED: KETOROLAC TROMETHAMINE 30 MG/1 ML VIAL IVPUSH ONE (08:26)
[2017-05-18] MEDS ORDERED: KETOROLAC TROMETHAMINE 30 MG/1 ML VIAL ONE (09:04)
[2017-05-18 09:06] LABS: URINE APPEARANCE SLCLOUDY; URINE BILIRUBIN NEGATIVE (<2.0 mg/dL); URINE BLOOD 3+ (NEGATIVE); URINE COLOR LTYELLOW; URINE GLUCOSE (UA) NEGATIVE (NEGATIVE); URINE KETONE NEGATIVE (NEGATIVE); URINE NITRITE NEGATIVE (NEGATIVE); URINE UROBILINOGEN NEGATIVE mg/dL (0.2-1.0)
[2017-05-18 09:11] LABS: URINE LEUK ESTERASE 2+ (NEGATIVE); URINE PROTEIN 2+ (NEGATIVE)
[2017-05-18 09:14] LABS: BASO % 0.3 % (0-2.0); EOS % 1.4 % (0-4.5); HEMATOCRIT 37.6 % (32.4-45.2); HEMOGLOBIN 12.1 GM/dL (10.7-15.3); LYMPH % 21.4 % (8-40); MCH 24.9 pg (25.7-33.7); MCHC 32.2 g/dl (32.0-36.0); MEAN CELL VOLUME 77.3 fl (80-96); MEAN PLT VOLUME 9.3 fl (7.5-11.1); MONO % 4.5 % (3.8-10.2); NEUT % 72.4 % (42.8-82.8); PLATELET COUNT 350 K/MM3 (134-434); RBC 4.86 M/mm3 (3.60-5.2); RDW 16.5 % (11.6-15.6); WHITE BLOOD COUNT 14.5 K/mm3 (4.0-10.0)
[2017-05-18 09:26] LABS: EPI CELLS RARE /HPF (FEW); URINE MUCUS MODERATE
[2017-05-18 09:33] LABS: ALBUMIN 3.5 g/dl (3.4-5.0); ALK PHOS 148 U/L (45-117); ANION GAP 5 (8-16); BILIRUBIN,TOTAL 0.3 mg/dL (0.2-1.0); BLOOD UREA NITROGEN 8 mg/dL (7-18); CALCIUM 8.7 mg/dL (8.5-10.1); CHLORIDE 106 mmol/L (98-107); CO2 29 mmol/L (21-32); CREATININE 0.5 mg/dL (0.55-1.02); GLUCOSE,RANDOM 93 mg/dL (74-106); POTASSIUM 4.2 mmol/L (3.5-5.1); SGOT/AST 13 U/L (15-37); SGPT/ALT 27 U/L (12-78); SODIUM 140 mmol/L (136-145); TOT PROT 7.6 g/dl (6.4-8.2)
[2017-05-18 10:57] VITALS: TEMP 97.6
[2017-05-18 12:55] VITALS: BP 128/72; PULSE 78
== END 2017-05-18 12:55 | disposition home or self-care (01) ==
LOC: JER 07:21
DX: T82.848A Pain due to vascular prosthetic devices, implants and grafts, initial encounter (principal); Z96.0 Presence of urogenital implants; Z87.442 Personal history of urinary calculi
CPT/HCPCS: 36415; 76775-TC; 80053; 81003; 81015; 84703; 85025; 87077; 87086; 99281-25

== ENCOUNTER 2018-01-24 13:14 | Emergency (ER) | payer OTHER ==
[2018-01-24 13:21] VITALS: BMI 30.5
--- NOTE | 2018-01-24 13:32 | PDOC ---
History of Present Illness - General Chief Complaint: Pain Stated Complaint: ABD PAIN Time Seen by Provider: 01/24/18 13:31 - History of Present Illness Initial Comments: 01/24/18 13:42 Ms. Leal is a 22 yo female w/ pmh of left ureter stent and left pyloric kidney stones who presents for evaluation of 1 day history of midline abdominal pain with nausea, vomiting, and body aches. Patient reports she was in her usual state of health until waking up this morning when her symptoms started. She reports single episode of vomiting only which consisted of food she had eaten. She also endorses current headache. Of note, patient reports her young son recently complained of abdominal pain w/ nausea/vomiting a few days ago. The patient denies chest pain, shortness of breath, and dizziness. Denies diarrhea and constipation. Denies dysuria, frequency, urgency and hematuria. PCP: Dr. Jasper George Urologist: Dr. Dash Past History - Past Medical History Allergies/Adverse Reactions: Allergies Allergy/AdvReac Type Severity Reaction Status Date / Time No Known Allergies Allergy Verified 01/24/18 13:21 Home Medications: Ambulatory Orders Ranitidine [Zantac -] 150 mg PO DAILY PRN 01/24/18 Asthma: No Cancer: No Cardiac Disorders: No COPD: No DVT: No Diabetes: No HTN: No Kidney Stones: Yes Seizures: No Thyroid Disease: No - Reproductive History (#): 1 Para: 0 Spontaneous : 0 - Immunization History Immunization Up to Date: Yes - Suicide/Smoking/Psychosocial Hx Smoking Status: No Smoking History: Never smoked Have you smoked in the past 12 months: No Number of Cigarettes Smoked Daily: 0 Hx Alcohol Use: No Drug/Substance Use Hx: No Substance Use Type: None Hx Substance Use Treatment: No Review of Systems - Review of Systems Comments:: 01/24/18 13:57 GENERAL/CONSTITUTIONAL: +Subjective fever/chills w/ body aches. No weakness. HEAD, EYES, EARS, NOSE AND THROAT: No change in vision. No ear pain or discharge. No sore throat. CARDIOVASCULAR: No chest pain or shortness of breath RESPIRATORY: No cough, wheezing, or hemoptysis. GASTROINTESTINAL: +N/V as described. No diarrhea or constipation. GENITOURINARY: No dysuria, frequency, or change in urination. MUSCULOSKELETAL: No joint or muscle swelling or pain. No neck or back pain. SKIN: No rash NEUROLOGIC: +Current headache; no vertigo, loss of consciousness, or change in strength/sensation. ENDOCRINE: No increased thirst. No abnormal weight change HEMATOLOGIC/LYMPHATIC: No anemia, easy bleeding, or history of blood clots. ALLERGIC/IMMUNOLOGIC: No hives or skin allergy. *Physical Exam - Vital Signs Last Vital Signs Temp Pulse Resp BP Pulse Ox 98.3 F 87 18 111/56 L 99 01/24/18 13:19 01/24/18 13:19 18 13:19 01/24/18 13:19 01/24/18 13:19 - Physical Exam Comments: 01/24/18 13:57 GENERAL: Awake, alert, and fully oriented, in no acute distress HEAD: No signs of trauma, normocephalic, atraumatic EYES: PERRLA, EOMI, sclera anicteric, conjunctiva clear ENT: Auricles normal inspection, hearing grossly normal, nares patent, oropharynx clear without exudates. Moist mucosa NECK: Normal ROM, supple, no lymphadenopathy, JVD, or masses LUNGS: No distress, speaks full sentences, clear to auscultation bilaterally HEART: Regular rate and rhythm, normal S1 and S2, no murmurs, rubs or gallops, peripheral pulses normal and equal bilaterally. ABDOMEN: +Mildline abdominal pain, soft, normoactive bowel sounds. No guarding, no rebound. No masses EXTREMITIES: Normal inspection, Normal range of motion, no edema. No clubbing or cyanosis. NEUROLOGICAL: Cranial nerves II through XII grossly intact. Normal speech, normal gait, no focal sensorimotor deficits SKIN: Warm, Dry, normal turgor, no rashes or lesions noted. Moderate Sedation - Procedure Monitoring Vital Signs: Procedure Monitoring Vital Signs Temperature 98.3 F 01/24/18 13:19 Pulse Rate 87 01/24/18 13:19 Respiratory Rate 18 01/24/18 13:19 Blood Pressure 111/56 L 01/24/18 13:19 O2 Sat by Pulse Oximetry (%) 99 01/24/18 13:19 ED Treatment Course - LABORATORY CBC & Chemistry Diagram: 01/24/18 14:10 01/24/18 14:10 Medical Decision Making - Medical Decision Making 01/24/18 14:17 Ms. Leal is a 22 yo female w/ pmh as described who presents for evaluation of symptoms concerning for gastritis vs. headache vs. infectious process. Symptomatic relief given with tylenol/zofran/fluids/GI cocktail and evaluation started with CBC/CMP/UA/Upreg for etiology of symptoms. RUQ US also ordered for pain evaluation 01/24/18 17:52 Patient US negative. Labs grossly wnl as below. Patient reporting improvement of symptoms w/ only headache remaining. Patient requesting medication for headache and would like to go home. No concerning findings at this time. Discharging w/ instructions to f/u w/ PCP and return to ER immediately if any change in pain to RLQ. Patient agrees with plan and will comply. Laboratory Results - last 24 hr 01/24/18 01/24/18 01/24/18 14:10 14:10 14:10 WBC 12.7 H RBC 4.85 Hgb 12.6 Hct 37.6 MCV 77.6 L MCH 26.1 MCHC 33.6 RDW 16.2 H Plt Count 341 MPV 10.0 Absolute Neuts (auto) 11.5 H Neutrophils % 90.2 H Lymphocytes % 6.4 L D Monocytes % 2.9 L Eosinophils % 0.2 D Basophils % 0.3 Nucleated RBC % 0 Sodium 136 Potassium 4.0 Chloride 104 Carbon Dioxide 26 Anion Gap 6 L BUN 11 Creatinine 0.6 Creat Clearance w eGFR > 60 Random Glucose 95 Calcium 8.3 L Total Bilirubin 0.6 AST 12 L ALT 17 Alkaline Phosphatase 130 H Total Protein 7.5 Albumin 3.5 Lipase 94 Urine Color Ltyellow Urine Appearance Slcloudy Urine pH 6.0 Ur Specific [place] 1.023 Urine Protein Negative Urine Glucose (UA) Negative Urine Ketones Negative Urine Blood Negative Urine Nitrite Negative Urine Bilirubin Negative Urine Urobilinogen Negative Ur Leukocyte Esterase Negative Urine HCG, Qual Negative Influenza A (Rapid) Influenza B (Rapid) 01/24/18 14:10 WBC RBC Hgb Hct MCV MCH MCHC RDW Plt Count MPV Absolute Neuts (auto) Neutrophils % Lymphocytes % Monocytes % Eosinophils % Basophils % Nucleated RBC % Sodium Potassium Chloride Carbon Dioxide Anion Gap BUN Creatinine Creat Clearance w eGFR Random Glucose Calcium Total Bilirubin AST ALT Alkaline Phosphatase Total Protein Albumin Lipase Urine Color Urine Appearance Urine pH Ur Specific [place] Urine Protein Urine Glucose (UA) Urine Ketones Urine Blood Urine Nitrite Urine Bilirubin Urine Urobilinogen Ur Leukocyte Esterase Urine HCG, Qual Influenza A (Rapid) Negative Influenza B (Rapid) Negative *DC/Admit/Observation/Transfer Diagnosis at time of Disposition: Epigastric pain - Discharge Dispostion Disposition: HOME - Referrals Referrals: Kaden Romero MD [Primary Care Provider] - - Patient Instructions Printed Discharge Instructions: DI for Abdominal Pain-Adult Additional Instructions: You were evaluated today in the ER for your abdominal pain. We evaluated you with labs and ultrasound with no concerning findings. You may take over the counter tylenol or motrin for further pain control. Follow-up with primary care provider tomorrow for further evaluation. Return to ER immediately if any pain not controllable with motrin/tylenol, fever, chills, pain in your right lower abdomen, or other concerning symptoms. - Post Discharge Activity
[2018-01-24] MEDS ORDERED: ONDANSETRON 4 MG/2 ML VIAL IVPUSH ONE (13:51)
[2018-01-24] MEDS ORDERED: SODIUM CHLORIDE 1,000 ML IV STA (13:51)
[2018-01-24] MEDS ORDERED: MAG HYDROX/AL HYDROX/SIMETH 30 ML UNIT-DOSE CUP PO ONE (13:53)
[2018-01-24] MEDS ORDERED: FAMOTIDINE 20 MG/50 ML IVPB 20 MG/50 ML MG IVPB ONE ×2 (13:53→13:59)
[2018-01-24] MEDS ORDERED: ONDANSETRON 4 MG/2 ML VIAL ONE (13:58)
[2018-01-24] MEDS ORDERED: MAG HYDROX/AL HYDROX/SIMETH 30 ML UNIT-DOSE CUP ONE (13:58)
--- NOTE | 2018-01-24 14:02 | PDOC ---
Attending Attestation - HPI HPI: 01/24/18 16:30 The patient is a 22 year old female with a significant past medical history of left ureteral stent and left kidney stone who presents to the emergency department with epigastric abdominal pain since earlier this morning. The patient reports that her abdominal pain is a sharp stabbing constant pain. She reports some associated nausea, vomiting, headache, chills, and back pain. The patient reports that she has had similar episodes in the past by which she took medication for it with relief. She reports that this time her pain was not relieved. The patient denies any other symptoms. She denies any fever, diarrhea , constipation or urinary symptoms. She denies any chest pain, shortness of breath or dizziness. The patient denies any other complaints. The patient notes her abd pain, and nausea and headache has since resolved. Pt endorses mild lightheadedness at this time. Documentation prepared by Jonah Riley, acting as emergency medical dispatcher for Horacio Howell MD. <Jonah Riley - Last Filed: 01/24/18 16:30> - Resident Resident Name: Angelo Arellano - ED Attending Attestation I have performed the following: I have examined & evaluated the patient, The case was reviewed & discussed with the resident, I agree w/resident's findings & plan, Exceptions are as noted - Physicial Exam PE: 01/24/18 15:30 GENERAL: The patient is awake, alert, and fully oriented, Nontoxic - in no acute distress. HEAD: Normocephalic, atraumatic. EYES: extraocular movements intact, sclera anicteric, conjunctiva clear. ENT: Normal voice, Moist mucous membranes. NECK: Normal range of motion, supple LUNGS: Breath sounds equal, clear to auscultation bilaterally. No wheezes, no rhonchi, no rales. HEART: Regular rate and rhythm, normal S1 and S2 without murmur, rub or gallop. ABDOMEN: Mild right upper quadrant tenderness, no rebound or guarding, no CVA tenderness EXTREMITIES: Normal range of motion, No clubbing or cyanosis. NEUROLOGICAL: No facial assymetry, Normal speech, moving all 4 extermities spontaneously symmetrically PSYCH: Normal mood, normal affect. SKIN: Warm, Dry, normal turgor, - Medical Decision Making 01/24/18 14:00 22y F hx of kidney stones presents with back pain, headache, n/v, epigastric abd pain. The symptoms started this morning the patient notes that the abdominal pain was stabbing in nature has currently resolved, the back pain is also resolved the patient endorses mild lightheadedness at this point. Patient notes that her abdominal pain feels somewhat like her prior acid reflux however she took ranitidine without significant improvement. There was no associated fevers, dysuria, diarrhea, cough, congestion, cough. On exam the patient had mild tenderness in the right upper quadrant, will obtain ultrasound to rule out gallstones, laboratory rule out metabolic derangements, anemia, pancreatitis. We'll obtain UA and urine to rule out UTI will reassess 01/24/18 16:31 labs noted for mild leukocytosis UA neg lytes wnl awaiting GB US signed out to evening team to reassess the pt after US resuilts <Horacio Howell - Last Filed: 01/26/18 09:51>
[2018-01-24] MEDS ORDERED: ACETAMINOPHEN 1000 MG/100 ML VIAL (NON FORMULARY) IVPB ONE (14:10)
[2018-01-24 14:19] LABS: BASO % 0.3 % (0-2.0); EOS % 0.2 % (0-4.5); HEMATOCRIT 37.6 % (32.4-45.2); HEMOGLOBIN 12.6 GM/dL (10.7-15.3); LYMPH % 6.4 % (8-40); MCH 26.1 pg (25.7-33.7); MCHC 33.6 g/dl (32.0-36.0); MEAN CELL VOLUME 77.6 fl (80-96); MONO % 2.9 % (3.8-10.2); NEUT % 90.2 % (42.8-82.8); PLATELET COUNT 341 K/MM3 (134-434); RBC 4.85 M/mm3 (3.60-5.2); RDW 16.2 % (11.6-15.6); WHITE BLOOD COUNT 12.7 K/mm3 (4.0-10.0)
[2018-01-24] MEDS ORDERED: ACETAMINOPHEN INJECTION 100 ML IVPB ONE (14:21)
[2018-01-24 14:22] LABS: URINE APPEARANCE SLCLOUDY; URINE BILIRUBIN NEGATIVE (<2.0 mg/dL); URINE COLOR LTYELLOW; URINE GLUCOSE (UA) NEGATIVE (NEGATIVE); URINE KETONE NEGATIVE (NEGATIVE); URINE LEUK ESTERASE NEGATIVE (NEGATIVE); URINE NITRITE NEGATIVE (NEGATIVE); URINE PROTEIN NEGATIVE (NEGATIVE); URINE UROBILINOGEN NEGATIVE mg/dL (0.2-1.0)
[2018-01-24 14:23] LABS: HCG,QUALITATIVE URINE Negative
[2018-01-24 14:50] LABS: ALBUMIN 3.5 g/dl (3.4-5.0); ALK PHOS 130 U/L (45-117); ANION GAP 6 MMOL/L (8-16); BILIRUBIN,TOTAL 0.6 mg/dL (0.2-1); BLOOD UREA NITROGEN 11 mg/dL (7-18); CALCIUM 8.3 mg/dL (8.5-10.1); CHLORIDE 104 mmol/L (98-107); CO2 26 mmol/L (21-32); CREATININE 0.6 mg/dL (0.55-1.3); GLUCOSE,RANDOM 95 mg/dL (74-106); LIPASE 94 U/L (73-393); SGOT/AST 12 U/L (15-37); SGPT/ALT 17 U/L (13-61); SODIUM 136 mmol/L (136-145); TOT PROT 7.5 g/dl (6.4-8.2)
[2018-01-24] MEDS ORDERED: morphine CARPU-JECT 4 MG/1 ML DISP.SYRIN IVPUSH ONE (16:14)
[2018-01-24] MEDS ORDERED: morphine SULFATE 4 MG/ML VIAL ONE (16:38)
[2018-01-24] MEDS ORDERED: IBUPROFEN 400 MG TABLET (FP) PO ONE (17:54)
[2018-01-24 18:03] VITALS: BP 106/57; PULSE 66; TEMP 98.9
== END 2018-01-24 18:11 | disposition home or self-care (01) ==
LOC: JER 13:14
PROC: 3E0337Z Introduction of Electrolytic and Water Balance Substance into Peripheral Vein, Percutaneous Approach (ICD-10-PCS; principal; 2018-01-24)
PROC: 3E033GC Introduction of Other Therapeutic Substance into Peripheral Vein, Percutaneous Approach (ICD-10-PCS; 2018-01-24)
PROC: 3E033NZ Introduction of Analgesics, Hypnotics, Sedatives into Peripheral Vein, Percutaneous Approach (ICD-10-PCS; 2018-01-24)
DX: R10.13 Epigastric pain (principal)
CPT/HCPCS: 36415; 76705-TC; 80053; 81003; 83690; 84703; 85025; 87086; 87804; 99282-25; J0131; J7030

== ENCOUNTER 2018-03-30 20:11 | Emergency (ER) | payer OTHER ==
--- NOTE | 2018-03-30 20:16 | PDOC ---
Rapid Medical Evaluation Chief Complaint: Cold Symptoms Time Seen by Provider: 03/30/18 20:14 Medical Evaluation: Allergies Allergy/AdvReac Type Severity Reaction Status Date / Time No Known Allergies Allergy Verified 01/24/18 13:21 03/30/18 20:14 I have performed a brief in person evaluation of this patient. CC: Sinus Pressure HPI: Pt is a 22 YO female who states that she has sinus pressure, dizziness and nausea x 1 day. LMP 2. PE: Skin: Clear Lungs: Clear Heart:RRR MS: Moves all extremities without difficulty Neuro: Alert and oriented Psych: Appropriate affect I have ordered the following: Influenza Pt will proceed to the [facility] for further evaluation. 03/30/18 20:15 Discharge Disposition - Diagnosis Fever Qualifiers: Fever type: due to other condition Qualified Code(s): R50.81 - Fever presenting with conditions classified elsewhere - Referrals - Patient Instructions - Post Discharge Activity
[2018-03-30 20:17] VITALS: BP 108/57; PULSE 90; TEMP 101; BMI 30.3
--- NOTE | 2018-03-30 20:40 | PDOC ---
History of Present Illness - General Chief Complaint: Cold Symptoms Stated Complaint: CONGESTION BODY GUANAKITO Time Seen by Provider: 03/30/18 20:14 - History of Present Illness Initial Comments: 03/30/18 20:39 22-year-old female without comorbidities presents for evaluation of body aches and malaise times one day Past History - Past Medical History Allergies/Adverse Reactions: Allergies Allergy/AdvReac Type Severity Reaction Status Date / Time No Known Allergies Allergy Verified 03/30/18 20:17 Home Medications: Ambulatory Orders NK [No Known Home Medication] 03/30/18 Asthma: No Cancer: No Cardiac Disorders: No COPD: No DVT: No Diabetes: No HTN: No Kidney Stones: Yes Seizures: No Thyroid Disease: No - Reproductive History (#): 1 Para: 0 Spontaneous : 0 - Immunization History Immunization Up to Date: Yes - Suicide/Smoking/Psychosocial Hx Smoking Status: No Smoking History: Never smoked Have you smoked in the past 12 months: No Number of Cigarettes Smoked Daily: 0 Information on smoking cessation initiated: No Hx Alcohol Use: No Drug/Substance Use Hx: No Substance Use Type: None Hx Substance Use Treatment: No Review of Systems - Review of Systems Constitutional: Yes: Chills, Malaise. No: Fever HEENTM: Yes: Nose Congestion *Physical Exam - Vital Signs Last Vital Signs Temp Pulse Resp BP Pulse Ox 101.0 F H 90 17 108/57 L 100 03/30/18 20:14 03/30/18 20:14 03/30/18 20:14 03/30/18 20:14 03/30/18 20:14 - Physical Exam Comments: 03/30/18 20:40 HEAD: NC/AT EYES: Conjuntiva clear Ears: Canals and TM's normal NOSE: No d/c THROAT: Moist mucous membrances, oral pharanx clear, uvula midline NECK: Supple without adenopathy CARDIAC: S1 S2 LUNGS: CTA Full and Equal breath sounds ABDOMEN: Soft NT ND MS: Full ROM in all joints without edema NEUROLOGIC: No gross sensory or motor deficits, NVID SKIN: Normal color and temperature no lesions or rashes Moderate Sedation - Procedure Monitoring Vital Signs: Procedure Monitoring Vital Signs Temperature 101.0 F H 03/30/18 20:14 Pulse Rate 90 03/30/18 20:14 Respiratory Rate 17 03/30/18 20:14 Blood Pressure 108/57 L 03/30/18 20:14 O2 Sat by Pulse Oximetry (%) 100 03/30/18 20:14 Medical Decision Making - Medical Decision Making 03/30/18 20:40 Patient's temperature in triage does not reflect her actual temperature. She was drinking hot tea, I rechecked the temperature she is 98.6 *DC/Admit/Observation/Transfer Diagnosis at time of Disposition: Viral upper respiratory illness Diagnosis at time of Disposition: (Ruled Out): Fever - Discharge Dispostion Disposition: HOME Condition at time of disposition: Stable Decision to Admit order: No - Referrals Referrals: Kaden Romero MD [Primary Care Provider] - - Patient Instructions Printed Discharge Instructions: DI for Viral Upper Respiratory Infection -- Adult Additional Instructions: Tylenol and Motrin as directed for body aches. Follow-up with your primary care physician in one to 2 days for further evaluation and treatment options. Flu swab is negative today. - Post Discharge Activity
== END 2018-03-30 21:06 | disposition home or self-care (01) ==
LOC: JERFT 20:11
DX: J06.9 Acute upper respiratory infection, unspecified (principal)
CPT/HCPCS: 87804; 99281-25

== ENCOUNTER 2018-04-13 09:05 | Emergency (ER) | payer OTHER ==
[2018-04-13 09:17] VITALS: TEMP 97.8; BMI 30.2
[2018-04-13] MEDS ORDERED: SODIUM CHLORIDE 0.9% 1000 ML INFUS.BAG IV ONE (09:39)
[2018-04-13] MEDS ORDERED: ACETAMINOPHEN 1000 MG/100 ML VIAL (NON FORMULARY) IVPB ONE (09:39)
[2018-04-13 10:04] LABS: BASO % 0.5 % (0-2.0); EOS % 1.5 % (0-4.5); HEMATOCRIT 37.3 % (32.4-45.2); HEMOGLOBIN 12.4 GM/dL (10.7-15.3); MCH 26.2 pg (25.7-33.7); MCHC 33.2 g/dl (32.0-36.0); MEAN CELL VOLUME 78.8 fl (80-96); MEAN PLT VOLUME 9.7 fl (7.5-11.1); MONO % 4.6 % (3.8-10.2); NEUT % 71.4 % (42.8-82.8); PLATELET COUNT 330 K/MM3 (134-434); RBC 4.73 M/mm3 (3.60-5.2); RDW 16.3 % (11.6-15.6); WHITE BLOOD COUNT 12.4 K/mm3 (4.0-10.0)
[2018-04-13 10:08] LABS: HCG,QUALITATIVE URINE Negative
[2018-04-13 10:14] LABS: URINE APPEARANCE CLEAR; URINE BILIRUBIN NEGATIVE (<2.0 mg/dL); URINE COLOR LTYELLOW; URINE GLUCOSE (UA) NEGATIVE (NEGATIVE); URINE KETONE NEGATIVE (NEGATIVE); URINE LEUK ESTERASE NEGATIVE (NEGATIVE); URINE NITRITE NEGATIVE (NEGATIVE); URINE PROTEIN NEGATIVE (NEGATIVE); URINE UROBILINOGEN NEGATIVE mg/dL (0.2-1.0)
[2018-04-13] MEDS ORDERED: ACETAMINOPHEN INJECTION 100 ML IVPB ONE (10:14)
[2018-04-13] MEDS ORDERED: morphine CARPU-JECT 4 MG/1 ML DISP.SYRIN IVPUSH ONE (10:28)
[2018-04-13] MEDS ORDERED: KETOROLAC TROMETHAMINE 30 MG/1 ML VIAL IVPUSH ONE (10:28)
[2018-04-13 10:36] LABS: ALBUMIN 3.4 g/dl (3.4-5.0); ALK PHOS 127 U/L (45-117); ANION GAP 6 MMOL/L (8-16); BILIRUBIN,TOTAL 0.3 mg/dL (0.2-1); BLOOD UREA NITROGEN 14 mg/dL (7-18); CALCIUM 8.5 mg/dL (8.5-10.1); CHLORIDE 103 mmol/L (98-107); CO2 28 mmol/L (21-32); CREATININE 0.7 mg/dL (0.55-1.3); GLUCOSE,RANDOM 93 mg/dL (74-106); POTASSIUM 4.7 mmol/L (3.5-5.1); SGOT/AST 11 U/L (15-37); SGPT/ALT 20 U/L (13-61); SODIUM 137 mmol/L (136-145); TOT PROT 7.4 g/dl (6.4-8.2)
[2018-04-13] MEDS ORDERED: morphine SULFATE 4 MG/ML VIAL ONE (10:49)
[2018-04-13] MEDS ORDERED: KETOROLAC TROMETHAMINE 30 MG/1 ML VIAL ONE (10:49)
--- NOTE | 2018-04-13 13:44 | PDOC ---
History of Present Illness - General Chief Complaint: Pain, Acute Stated Complaint: LOWER BACK PAIN Time Seen by Provider: 04/13/18 09:34 History Source: Patient Exam Limitations: No Limitations - History of Present Illness Initial Comments: 04/13/18 13:42 22yo F with PMH of kidney stones presenting with sudden onset R sided abdominal and back pain. Pt states the pain feels like kidney stone. The pain was originally in the lower abdomen on the R side but now is mainly in the back. Endorses nausea and headache. She denies fever, chills, urinary symptoms, hematuria, diarrhea, constipation, SOB, numbness/tingling, weakness, injury, vaginal bleeding, vaginal discharge. LMP 2-3 days ago. PMH: see hpi PSH: ureteral stent Meds: none Allergies: nkda Social: denies Past History - Past Medical History Allergies/Adverse Reactions: Allergies Allergy/AdvReac Type Severity Reaction Status Date / Time No Known Allergies Allergy Verified 04/13/18 09:13 Home Medications: Ambulatory Orders NK [No Known Home Medication] 03/30/18 Asthma: No Cancer: No Cardiac Disorders: No COPD: No DVT: No Diabetes: No HTN: No Kidney Stones: Yes Seizures: No Thyroid Disease: No - Reproductive History (#): 1 Para: 0 Spontaneous : 0 - Immunization History Immunization Up to Date: Yes - Suicide/Smoking/Psychosocial Hx Smoking Status: No Smoking History: Never smoked Have you smoked in the past 12 months: No Number of Cigarettes Smoked Daily: 0 Hx Alcohol Use: No Drug/Substance Use Hx: No Substance Use Type: None Hx Substance Use Treatment: No *Physical Exam - Vital Signs Last Vital Signs Temp Pulse Resp BP Pulse Ox 97.8 F 59 L 18 98/57 L 100 04/13/18 09:15 04/13/18 09:15 04/13/18 09:15 04/13/18 09:15 04/13/18 09:15 Moderate Sedation - Procedure Monitoring Vital Signs: Procedure Monitoring Vital Signs Temperature 97.8 F 04/13/18 09:15 Pulse Rate 59 L 04/13/18 09:15 Respiratory Rate 18 04/13/18 09:15 Blood Pressure 98/57 L 04/13/18 09:15 O2 Sat by Pulse Oximetry (%) 100 04/13/18 09:15 ED Treatment Course - LABORATORY CBC & Chemistry Diagram: 04/13/18 09:49 04/13/18 09:49 - ADDITIONAL ORDERS Additional order review: Laboratory Results 04/13/18 04/13/18 09:50 09:49 Sodium 137 Potassium 4.7 Chloride 103 Carbon Dioxide 28 Anion Gap 6 L BUN 14 Creatinine 0.7 Creat Clearance w eGFR > 60 Random Glucose 93 Calcium 8.5 Total Bilirubin 0.3 AST 11 L ALT 20 Alkaline Phosphatase 127 H Total Protein 7.4 Albumin 3.4 Urine Color Ltyellow Urine Appearance Clear Urine pH 7.0 Ur Specific Atco 1.018 Urine Protein Negative Urine Glucose (UA) Negative Urine Ketones Negative Urine Blood Negative Urine Nitrite Negative Urine Bilirubin Negative Urine Urobilinogen Negative Ur Leukocyte Esterase Negative Urine HCG, Qual Negative 04/13/18 09:49 RBC 4.73 MCV 78.8 L MCHC 33.2 RDW 16.3 H MPV 9.7 Neutrophils % 71.4 D Lymphocytes % 22.0 D Monocytes % 4.6 Eosinophils % 1.5 D Basophils % 0.5 - Medications Given in the ED: ED Medications Discontinued Medications Generic Name Dose Route Start Last Admin Trade Name Wilderq PRN Reason Stop Dose Admin Acetaminophen 1,000 mg 04/13/18 09:39 04/13/18 10:21 Ofirmev Injection - IVPB 04/13/18 09:40 1,000 mg ONCE ONE Administration Ketorolac Tromethamine 30 mg 04/13/18 10:28 04/13/18 10:57 Toradol Injection - IVPUSH 04/13/18 10:29 30 mg ONCE ONE Administration Morphine Sulfate 4 mg 04/13/18 10:28 04/13/18 11:14 Morphine Injection - IVPUSH 04/13/18 10:29 Not Given ONCE ONE Sodium Chloride 1,000 ml 04/13/18 09:39 04/13/18 10:21 Normal Saline - IV 04/13/18 09:40 1,000 ml ONCE ONE Administration Medical Decision Making - Medical Decision Making 04/14/18 21:54 22yo F with PMH of kidney stones presenting with sudden onset R sided abdominal and back pain. Pt states the pain feels like kidney stone. The pain was originally in the lower abdomen on the R side but now is mainly in the back. Endorses nausea and headache. She denies fever, chills, urinary symptoms, hematuria, diarrhea, constipation, SOB, numbness/tingling, weakness, injury, vaginal bleeding, vaginal discharge. LMP 2-3 days ago. Vitals: wnl PE: R flank tenderness, RLQ tenderness. No adnexal or CMT tenderness. Ddx includes but not limited to nephrolithiasis, appendicitis, PID, ovarian torsion, TOA, colitis, cholecystitis -lower suspicion for ovarian causes given normal pelvic exam -cbc, cmp, ua, preg -fluids, iv tylenol, morphine Upreg negative--> Toradol labs significant for elevated white count. Will CT with iv contrast to r/o appendicitis. CT shows passed stone, no appendicitis. Pt can be dc home. *DC/Admit/Observation/Transfer Diagnosis at time of Disposition: Kidney stone - Discharge Dispostion Disposition: HOME Condition at time of disposition: Improved Decision to Admit order: No - Referrals - Patient Instructions Printed Discharge Instructions: DI for Kidney Stones Additional Instructions: You were seen in the emergency room today for right sided pain. The CT scan results show that you have passed your stone. You do not have appendicitis or any other sort of infection. Keep yourself well hydrated and you can take Tylenol or ibuprofen for the pain as needed. Come back to the emergency room if pain gets worse, you develop fever, you start vomiting, you notice abnormal discharge, you have vaginal bleeding or if any new concerning symptom develops. Thank you - Post Discharge Activity Forms/Work/School Notes: Back to Work
[2018-04-13 14:11] VITALS: BP 106/69; PULSE 60
== END 2018-04-13 14:11 | disposition home or self-care (01) ==
LOC: JER 09:05
PROC: 3E033NZ Introduction of Analgesics, Hypnotics, Sedatives into Peripheral Vein, Percutaneous Approach (ICD-10-PCS; principal; 2018-04-13)
PROC: 3E0333Z Introduction of Anti-inflammatory into Peripheral Vein, Percutaneous Approach (ICD-10-PCS; 2018-04-13)
DX: N20.0 Calculus of kidney (principal); Z87.442 Personal history of urinary calculi
CPT/HCPCS: 36415; 74177-TC; 80053; 81003; 84703; 85025; 87086; 96374; 96375; 99282-25; J0131; J7030

== ENCOUNTER 2018-04-19 15:57 | Emergency (ER) | payer OTHER ==
[2018-04-19 16:06] VITALS: BP 110/56; PULSE 88; TEMP 99.9; BMI 30.3
[2018-04-19] MEDS ORDERED: ACETAMINOPHEN 500 MG TABLET (FP) PO ONE (17:00)
[2018-04-19] MEDS ORDERED: ACETAMINOPHEN 500 MG TABLET (FP) ONE (17:02)
--- NOTE | 2018-04-19 17:02 | PDOC ---
History of Present Illness - General Chief Complaint: Cold Symptoms Stated Complaint: BODY ACHES / COLD SYMPTOMS Time Seen by Provider: 04/19/18 16:58 - History of Present Illness Initial Comments: 04/19/18 17:00 22-year-old female without comorbidities presents for flulike symptoms times one day. She states her son was diagnosed with flu as well. He is being treated with Tamiflu. Past History - Past Medical History Allergies/Adverse Reactions: Allergies Allergy/AdvReac Type Severity Reaction Status Date / Time No Known Allergies Allergy Verified 04/19/18 16:03 Home Medications: Ambulatory Orders Oseltamivir Phosphate [Tamiflu] 75 mg PO BID #10 capsule 04/19/18 Asthma: No Cancer: No Cardiac Disorders: No COPD: No DVT: No Diabetes: No HTN: No Kidney Stones: Yes Seizures: No Thyroid Disease: No - Reproductive History (#): 1 Para: 0 Spontaneous : 0 - Immunization History Immunization Up to Date: Yes - Suicide/Smoking/Psychosocial Hx Smoking Status: No Smoking History: Never smoked Have you smoked in the past 12 months: No Number of Cigarettes Smoked Daily: 0 Information on smoking cessation initiated: No Hx Alcohol Use: No Drug/Substance Use Hx: No Substance Use Type: None Hx Substance Use Treatment: No Review of Systems - Review of Systems Constitutional: Yes: Chills, Fever, Malaise, Night Sweats HEENTM: Yes: Nose Congestion Respiratory: Yes: Cough *Physical Exam - Vital Signs Last Vital Signs Temp Pulse Resp BP Pulse Ox 99.9 F H 88 18 110/56 L 100 04/19/18 16:03 04/19/18 16:03 04/19/18 16:03 04/19/18 16:03 04/19/18 16:03 - Physical Exam Comments: 04/19/18 17:01 HEAD: NC/AT EYES: Conjuntiva clear Ears: Canals and TM's normal NOSE: No d/c THROAT: Moist mucous membrances, oral pharanx clear, uvula midline NECK: Supple without adenopathy CARDIAC: S1 S2 LUNGS: CTA Full and Equal breath sounds ABDOMEN: Soft NT ND MS: Full ROM in all joints without edema NEUROLOGIC: No gross sensory or motor deficits, NVID SKIN: Normal color and temperature no lesions or rashes Moderate Sedation - Procedure Monitoring Vital Signs: Procedure Monitoring Vital Signs Temperature 99.9 F H 04/19/18 16:03 Pulse Rate 88 04/19/18 16:03 Respiratory Rate 18 04/19/18 16:03 Blood Pressure 110/56 L 04/19/18 16:03 O2 Sat by Pulse Oximetry (%) 100 04/19/18 16:03 Medical Decision Making - Medical Decision Making 04/19/18 17:01 We'll treat for influenza based on symptoms and sick contacts. *DC/Admit/Observation/Transfer Diagnosis at time of Disposition: Viral illness - Discharge Dispostion Condition at time of disposition: Stable Decision to Admit order: No - Prescriptions Prescriptions: Oseltamivir Phosphate [Tamiflu] 75 mg PO BID #10 capsule - Referrals Referrals: Kaden Romero MD [Primary Care Provider] - - Patient Instructions Printed Discharge Instructions: DI for Viral Upper Respiratory Infection -- Adult Additional Instructions: Your being treated for flu. Tylenol Motrin as directed for pain and fever. Please take the Tamiflu as directed. Return to the emergency room for worsening symptoms and follow-up with your primary care physician in one to 2 days for further evaluation and treatment options. - Post Discharge Activity
== END 2018-04-19 17:13 | disposition home or self-care (01) ==
LOC: JERFT 15:57
DX: J06.9 Acute upper respiratory infection, unspecified (principal); B97.89 Other viral agents as the cause of diseases classified elsewhere
CPT/HCPCS: 99281-25

== ENCOUNTER 2019-03-28 20:20 | Emergency (ER) | payer OTHER ==
[2019-03-28] MEDS ORDERED: SODIUM CHLORIDE 1,000 ML IV STA (20:29)
--- NOTE | 2019-03-28 20:29 | PDOC ---
Rapid Medical Evaluation Time Seen by Provider: 03/28/19 20:27 Medical Evaluation: Allergies Allergy/AdvReac Type Severity Reaction Status Date / Time No Known Allergies Allergy Verified 03/28/19 20:25 03/28/19 20:27 I performed a brief in-person evaluation of this patient. Healthy 23-year-old female with headaches, nausea/vomiting, bodyaches, diarrhea , right flank pain x 4 days. Had one day of intermenstrual bleeding. No fevers. No travel. Seen at urgent care and directed to present to ED. Negative flu there. Pertinent physical exam findings: Alert, appears pale. No focal abdominal tenderness. I have ordered the following: Abdominal labs IV fluids Patient to proceed to ED for further evaluation. Discharge Disposition - Diagnosis Abdominal pain - Referrals - Patient Instructions - Post Discharge Activity
[2019-03-28 20:36] VITALS: BP 113/71; PULSE 90; TEMP 99.2; BMI 30.9
--- NOTE | 2019-03-28 21:04 | PDOC ---
Attending Attestation - Resident Resident Name: DavionJordan - ED Attending Attestation I have performed the following: I have examined & evaluated the patient, The case was reviewed & discussed with the resident, I agree w/resident's findings & plan - HPI HPI: 03/28/19 23:50 see resident hpi - Physicial Exam PE: 03/28/19 23:50 see resident exam - Medical Decision Making 03/28/19 23:51 23-year-old well-appearing female with multiple complaints including mild headache nausea vomiting and abdominal cramping, now all completely resolved after Tylenol antiemetic and fluid Pelvic ultrasound was unremarkable At the time of reevaluation patient was eating a bag of popcorn stating she felt much better and just wanted to go home She was given outpatient [facility] follow-up at her request
[2019-03-28 21:23] LABS: BASO % 0.3 % (0-2.0); EOS % 0.6 % (0-4.5); HEMATOCRIT 38.9 % (32.4-45.2); HEMOGLOBIN 12.7 GM/dL (10.7-15.3); MCH 26.1 pg (25.7-33.7); MCHC 32.7 g/dl (32.0-36.0); MEAN CELL VOLUME 79.7 fl (80-96); MEAN PLT VOLUME 9.8 fl (7.5-11.1); MONO % 5.5 % (3.8-10.2); NEUT % 68.6 % (42.8-82.8); PLATELET COUNT 349 K/MM3 (134-434); RBC 4.88 M/mm3 (3.60-5.2); RDW 15.2 % (11.6-15.6); WHITE BLOOD COUNT 10.8 K/mm3 (4.0-10.0)
--- NOTE | 2019-03-28 21:31 | PDOC ---
History of Present Illness - General Chief Complaint: Pain, Acute Stated Complaint: SENT BY PCP/ABD PAIN Time Seen by Provider: 03/28/19 20:27 History Source: Patient - History of Present Illness Initial Comments: 23M LMP 03/03 PMH left ureteral stent, left renal stone c/o 1 day of n / nbnb v / nonbloody d, lower abd pain, and myalgias in setting of 4 days of throbbing headache. endorses occasional chills. Denies dysuria, hematuria, frequency. Endorses occasional vaginal spotting since end of menses but no abnormal, malodorous discharge. Denies cp/sob. Past History - Past Medical History Allergies/Adverse Reactions: Allergies Allergy/AdvReac Type Severity Reaction Status Date / Time No Known Allergies Allergy Verified 03/28/19 20:25 Home Medications: Ambulatory Orders Oseltamivir Phosphate [Tamiflu] 75 mg PO BID #10 capsule 04/19/18 Asthma: No Cancer: No Cardiac Disorders: No COPD: No DVT: No Diabetes: No HTN: No Kidney Stones: Yes Seizures: No Thyroid Disease: No - Reproductive History (#): 1 Para: 0 Spontaneous : 0 - Immunization History Immunization Up to Date: Yes - Psycho Social/Smoking Cessation Hx Smoking Status: No Smoking History: Never smoked Have you smoked in the past 12 months: No Number of Cigarettes Smoked Daily: 0 Hx Alcohol Use: No Drug/Substance Use Hx: No Substance Use Type: None Hx Substance Use Treatment: No Review of Systems - Review of Systems Able to Perform ROS?: Yes Comments:: CONSTITUTIONAL: Denies F / C HEENT: endorses headache RESP: Denies SOB CARD: Denies chest pain GI: endorses n/v/d, low abdominal pain. : endorses occasional spotting. Denies dysuria, hematuria. SKIN: Denies rashes NEURO: Denies numbness, tingling, weakness MSK: Denies back pain *Physical Exam - Vital Signs Last Vital Signs Temp Pulse Resp BP Pulse Ox 99.2 F 90 18 113/71 100 03/28/19 20:27 03/28/19 20:27 03/28/19 20:27 03/28/19 20:27 03/28/19 20:27 - Physical Exam GEN: NAD, nontoxic. AAOx3. HEENT: NC/AT. No facial asymmetry. Moist mucous membranes. Normal voice. Supple neck w/ FROM. CV: S1/S2, RRR, no m/r/g LUNG: CTAB, no wheezes, crackles, rales, rhonchi. GI: +TTP of the LLQ and suprapubic. Soft, ndnt, +BS, no guarding, no rebound. PELVIC: Exam chaperoned by SEFERINO Kumar. No discharge, bleeding, and atrophy on inspection. Cervical os visualized and closed with no active bleeding, discharge , or tissue projection. No blood in vault; physiologic discharge. Neg CMT on bimanual exam; +left sided tenderness with right adnexal sweep; no tenderness w / left adnexal sweep. MSK: 2+ distal pulses. No LE edema. No obvious deformities of all extremities. SKIN: Warm, dry, no rashes appreciated. PSYCH: Normal mood and affect. NEURO: Moving all extremities well. Ambulates well. ED Treatment Course - LABORATORY CBC & Chemistry Diagram: 03/28/19 20:00 03/28/19 20:00 - ADDITIONAL ORDERS Additional order review: 03/28/19 20:00 RBC 4.88 MCV 79.7 L MCHC 32.7 RDW 15.2 MPV 9.8 Neutrophils % 68.6 Lymphocytes % 25.0 Monocytes % 5.5 Eosinophils % 0.6 Basophils % 0.3 - Medications Given in the ED: ED Medications Discontinued Medications Generic Name Dose Route Start Last Admin Trade Name Freq PRN Reason Stop Dose Admin Sodium Chloride 1,000 mls @ 1,000 mls/hr 03/28/19 20:29 03/28/19 20:58 Normal Saline - IV 03/28/19 21:28 1,000 mls/hr ASDIR STA Administration Medical Decision Making - Medical Decision Making 03/28/19 21:28 23F LMP 03/03 PMH left ureteral stent, left renal stone c/o nvd, myalgias. DDx - , ovarian cyst, torsion, renal stone RME orders reviewed: agree tylenol, zofran TVUS consider spiral CT 03/28/19 22:45 TVUS report reviewed The uterus measures 6.2 x 3.5 cm in sagittal and AP dimension. Endometrial stripe measures 7 mm in thickness Normal-appearing left ovary measuring 3.6 x 2.3 cm with multiple small simple cysts/follicles and normal vascular flow. Normal appearing right ovary measuring 3.6 x 2.2 cm with multiple small simple cysts/follicles and normal vascular flow. There is no free fluid in the cul-de-sac Impression: The uterus and both ovaries appear unremarkable. labs reviewed reassuring 03/28/19 23:50 patient reassessed feeling better, eating chips nontender on exam, headache has resolved requesting to go home dc home w/ ob f/u and return precautions Discharge - Discharge Information Problems reviewed: Yes Clinical Impression/Diagnosis: Abdominal pain Qualifiers: Abdominal location: lower abdomen, unspecified Qualified Code(s): R10.30 - Lower abdominal pain, unspecified Condition: Stable Disposition: HOME - Admission No - Follow up/Referral Referrals: Kaden Romero MD [Primary Care Provider] - [facility] [Provider Group] - Patient Discharge Instructions Patient Printed Discharge Instructions: DI for Abdominal Pain-Adult Additional Instructions: Take tylenol for headache and pain as instructed by the label. Follow up with your primary care doctor in the next 5-7 days. We are referring you to an [facility] you may call and schedule an appointment with them. Follow up with [facility] in the next 4-5 days. Return to the Emergency Department if you experience: - worsening pain - change in your pain - inability to eat or drink - numbness, tingling, or weakness of any arm or leg - anything that concerns you - Post Discharge Activity Work/Back to School Note: Back to Work
[2019-03-28 21:45] LABS: URINE APPEARANCE CLEAR; URINE BILIRUBIN NEGATIVE (NEGATIVE); URINE COLOR YELLOW; URINE GLUCOSE (UA) NEGATIVE (NEGATIVE); URINE KETONE NEGATIVE (NEGATIVE); URINE LEUK ESTERASE NEGATIVE (NEGATIVE); URINE NITRITE NEGATIVE (NEGATIVE); URINE PROTEIN NEGATIVE (NEGATIVE)
[2019-03-28] MEDS ORDERED: ACETAMINOPHEN 1000 MG/100 ML VIAL (NON FORMULARY) IVPB ONE (21:49)
[2019-03-28 22:08] LABS: ALBUMIN 3.4 g/dl (3.4-5.0); BILIRUBIN,TOTAL 0.5 mg/dL (0.2-1); BLOOD UREA NITROGEN 6.1 mg/dL (7-18); CREATININE 0.7 mg/dL (0.55-1.3); POTASSIUM 3.9 mmol/L (3.5-5.1)
[2019-03-28] MEDS ORDERED: ACETAMINOPHEN INJECTION 100 ML IVPB ONE (22:30)
[2019-03-28] MEDS ORDERED: ONDANSETRON 4 MG/2 ML VIAL IVPUSH ONE (22:30)
[2019-03-28] MEDS ORDERED: ONDANSETRON 4 MG/2 ML VIAL ONE (22:31)
== END 2019-03-29 00:01 | disposition home or self-care (01) ==
LOC: JER 20:20
PROC: 3E0337Z Introduction of Electrolytic and Water Balance Substance into Peripheral Vein, Percutaneous Approach (ICD-10-PCS; principal; 2019-03-28)
PROC: 3E033NZ Introduction of Analgesics, Hypnotics, Sedatives into Peripheral Vein, Percutaneous Approach (ICD-10-PCS; 2019-03-28)
PROC: 3E033GC Introduction of Other Therapeutic Substance into Peripheral Vein, Percutaneous Approach (ICD-10-PCS; 2019-03-28)
DX: R10.30 Lower abdominal pain, unspecified (principal); Z87.442 Personal history of urinary calculi; Z96.0 Presence of urogenital implants; N83.202 Unspecified ovarian cyst, left side; N83.201 Unspecified ovarian cyst, right side
CPT/HCPCS: 36415; 76830-TC; 80053; 81003; 83690; 84703; 85025; 87086; 99285-25; J0131; J7030

== ENCOUNTER 2019-09-04 17:43 | Emergency (ER) | payer OTHER ==
[2019-09-04 17:54] VITALS: BP 122/76; PULSE 98; TEMP 102.7; BMI 32.9
--- NOTE | 2019-09-04 17:56 | PDOC ---
Rapid Medical Evaluation Time Seen by Provider: 09/04/19 17:51 Medical Evaluation: Allergies Allergy/AdvReac Type Severity Reaction Status Date / Time No Known Allergies Allergy Verified 03/28/19 20:25 09/04/19 17:51 The patient is 24 y/o F with a sore throat since yesterday night. She states that the R side hurts more than the L. She also notes she "has glands present". States she has pain with swallowing and that it feels hard to breath d/t her throat. Denies cough, sob, diff breathing, n/v/d. States she had COVID in April and tested negative in July. Febrile 102F. No meds today. Exam: GENERAL: AAOx3, speaking in full sentences. NAD HEENT: Normocephalic, atraumatic. EOMI, PERRLA. Oropharynx with edema and erythema to the tonsils R <L. Uvula midline Neck: Trachea midline, (+) cervical LAD Neuro: No gross deficits, stable gait A/P: strep pharyngitis On exam, tonsils are erythematous with edema R >L . Uvula midline. Unlikely [employer]. Febrile to 102F, with Cervical LAD Centor critera 4; strep sent, will treat empirically Tylenol, Decadron given in ED DC home with PCP follow up and return precautions Discharge Disposition - Diagnosis Pharyngitis Qualifiers: Pharyngitis/tonsillitis etiology: streptococcus Qualified Code(s): J02.0 - Streptococcal pharyngitis - Discharge Dispostion Disposition: HOME Condition at time of disposition: Stable Decision to Admit order: No - Referrals Referrals: [facility] [place] [Provider Group] - Patient Instructions Printed Discharge Instructions: DI for Strep Throat Additional Instructions: You were seen for your throat pain today. You most likely have strep throat Please take the amoxicillin twice a day for one week You may take Motrin 600mg every 6 hours as needed for fever or pain Use warm water gargles and hot tea/cough drops to help with the pain Change your toothbrush in three days to prevent re-infecting your self Follow up with your primary care doctor this week. Return to the ER if you have worsening pain, persistent fever despite taking the antibiotics for three days or more, if you cannot swallow your own saliva, if your voice changes, or if you have any new or other worsening symptoms. - Post Discharge Activity
[2019-09-04] MEDS ORDERED: ACETAMINOPHEN 325 MG TABLET (FP) PO ONE (17:57)
[2019-09-04] MEDS ORDERED: DEXAMETHASONE LIQUID 0.5 MG/5 ML PO ONE (17:57)
[2019-09-04] MEDS ORDERED: DEXAMETHASONE SOD PHOSPHATE 10 MG/1 ML VIAL ONE (18:01)
[2019-09-04] MEDS ORDERED: ACETAMINOPHEN 500 MG TABLET (FP) ONE (18:02)
== END 2019-09-04 18:51 | disposition home or self-care (01) ==
LOC: JER 17:43
DX: J02.0 Streptococcal pharyngitis (principal)
CPT/HCPCS: 87880; 99283-25

== ENCOUNTER 2020-06-10 19:52 | Emergency (ER) | payer OTHER ==
[2020-06-10 20:08] VITALS: BP 128/85; PULSE 95; TEMP 99.5; BMI 29.0
== END 2020-06-10 21:32 | disposition home or self-care (01) ==
LOC: FER 19:52
DX: T81.31XA Disruption of external operation (surgical) wound, not elsewhere classified, initial encounter (principal)
CPT/HCPCS: 99281-25

== ENCOUNTER 2021-04-08 21:34 | Emergency (ER) | payer OTHER ==
[2021-04-08 21:40] VITALS: BP 114/73; PULSE 56; TEMP 97.3; BMI 28.3
== END 2021-04-08 23:31 | disposition left against medical advice (07) ==
LOC: JER 21:34
DX: R51.9 Headache, unspecified (principal); R11.0 Nausea
CPT/HCPCS: 99281-25

== ENCOUNTER 2021-12-07 01:01 | Emergency (ER) | payer OTHER ==
[2021-12-07 01:15] VITALS: BP 137/78; PULSE 52; RESP 16; TEMP 98.3; BMI 28.9
[2021-12-07] MEDS ORDERED: HYDROmorphone HCL CARPU-JECT 1 MG/1 ML DISP.SYRIN IM ONE (01:22)
[2021-12-07] MEDS ORDERED: HYDROmorphone HCL/PF 1 MG/ML VIAL ONE (01:24)
== END 2021-12-07 05:17 | disposition home or self-care (01) ==
LOC: FER 01:01
PROC: 3E023NZ Introduction of Analgesics, Hypnotics, Sedatives into Muscle, Percutaneous Approach (ICD-10-PCS; principal; 2021-12-07)
DX: K08.89 Other specified disorders of teeth and supporting structures (principal)
CPT/HCPCS: 99284-25

== ENCOUNTER 2022-02-05 05:03 | Emergency (ER) | payer OTHER ==
[2022-02-05 05:14] VITALS: BP 125/80; PULSE 86; RESP 16; TEMP 98.6; BMI 28.3
[2022-02-05] MEDS ORDERED: ACETAMINOPHEN 325 MG TABLET (FP) PO ONE (05:17)
[2022-02-05] MEDS ORDERED: ACETAMINOPHEN 325 MG TABLET (FP) ONE (05:27)
[2022-02-05 06:33] LABS: HEMATOCRIT 37.7 % (32.4-45.2); HEMOGLOBIN 12.3 GM/dL (10.7-15.3); MCH 27.4 pg (25.7-33.7); MCHC 32.7 g/dl (32.0-36.0); MEAN CELL VOLUME 83.8 fl (80-96); MEAN PLT VOLUME 10.2 fl (7.5-11.1); PLATELET COUNT 327 10^3/uL (134-434); RDW 14.6 % (11.6-15.6); WHITE BLOOD COUNT 17.5 K/mm3 (4.0-10.0)
[2022-02-05 06:52] LABS: ALBUMIN 3.2 g/dl (3.4-5.0); BLOOD UREA NITROGEN 11.9 mg/dL (7-18); CALCIUM 9.2 mg/dL (8.5-10.1)
[2022-02-05 06:56] LABS: CREATININE 0.7 mg/dL (0.55-1.3)
[2022-02-05 06:58] LABS: BILIRUBIN,TOTAL 0.3 mg/dL (0.2-1); TOT PROT 6.9 g/dl (6.4-8.2)
[2022-02-05 07:02] LABS: EPI CELLS 10 /uL (0-25.1); HYALINE CASTS 1 /uL (0-3.1); URINE APPEARANCE CLEAR; URINE BACTERIA 21 /uL (0-1359); URINE BILIRUBIN NEGATIVE (NEGATIVE); URINE COLOR YELLOW; URINE GLUCOSE (UA) NEGATIVE (NEGATIVE); URINE KETONE NEGATIVE (NEGATIVE); URINE LEUK ESTERASE NEGATIVE (NEGATIVE); URINE NITRITE NEGATIVE (NEGATIVE); URINE PROTEIN NEGATIVE (NEGATIVE); URINE RBC 140 /uL (0-23.9); URINE UROBILINOGEN 0.2 mg/dL (0.2-1.0); URINE WBC 20 /uL (0-25.8)
[2022-02-05] MEDS ORDERED: KETOROLAC TROMETHAMINE 30 MG/1 ML VIAL IVPUSH ONE (07:58)
[2022-02-05] MEDS ORDERED: KETOROLAC TROMETHAMINE 30 MG/1 ML VIAL ONE (08:14)
[2022-02-05] MEDS ORDERED: SODIUM CHLORIDE 1,000 ML IV STA (08:57)
== END 2022-02-05 09:49 | disposition home or self-care (01) ==
LOC: FER 05:03
PROC: 3E0333Z Introduction of Anti-inflammatory into Peripheral Vein, Percutaneous Approach (ICD-10-PCS; principal; 2022-02-05)
PROC: 3E0337Z Introduction of Electrolytic and Water Balance Substance into Peripheral Vein, Percutaneous Approach (ICD-10-PCS; 2022-02-05)
DX: N20.1 Calculus of ureter (principal)
CPT/HCPCS: 36415; 74176-TC; 80053; 81003; 84703; 85027; 99284-25

== ENCOUNTER 2022-03-02 17:27 | Emergency (ER) | payer OTHER ==
[2022-03-02 17:49] VITALS: BP 119/61; PULSE 88; RESP 20; TEMP 98.3; BMI 28.7
[2022-03-02] MEDS ORDERED: KETOROLAC TROMETHAMINE 15 MG/ML VIAL IM ONE (17:54)
[2022-03-02] MEDS ORDERED: KETOROLAC TROMETHAMINE 30 MG/1 ML VIAL ONE (17:55)
[2022-03-02 18:15] LABS: HCG,QUALITATIVE URINE Negative
[2022-03-02 18:20] LABS: EPITHELIAL CELLS FEW /hpf
== END 2022-03-02 18:47 | disposition home or self-care (01) ==
LOC: FER 17:27
PROC: 3E0233Z Introduction of Anti-inflammatory into Muscle, Percutaneous Approach (ICD-10-PCS; principal; 2022-03-02)
DX: N30.00 Acute cystitis without hematuria (principal)
CPT/HCPCS: 81003; 81015; 84703; 99284-25

== ENCOUNTER 2022-07-09 03:40 | Emergency (ER) | payer OTHER ==
[2022-07-09 03:55] VITALS: BP 115/74; PULSE 85; RESP 18; TEMP 97.7; BMI 22.8
[2022-07-09 04:25] LABS: BASO % 0.4 % (0-2.0); EOS % 1.6 % (0-4.5); HEMATOCRIT 38.5 % (32.4-45.2); HEMOGLOBIN 12.7 GM/dL (10.7-15.3); LYMPH % 13.5 % (8-40); MCHC 32.9 g/dl (32.0-36.0); MEAN CELL VOLUME 82.1 fl (80-96); MEAN PLT VOLUME 9.5 fl (7.5-11.1); MONO % 5.9 % (3.8-10.2); NEUT % 78.6 % (42.8-82.8); PLATELET COUNT 305 10^3/uL (134-434); RBC 4.69 M/mm3 (3.60-5.2); WHITE BLOOD COUNT 18.7 K/mm3 (4.0-10.0)
[2022-07-09 04:50] LABS: POTASSIUM 4.9 mmol/L (3.5-5.1)
[2022-07-09 04:52] LABS: ALBUMIN 3.3 g/dl (3.4-5.0); BLOOD UREA NITROGEN 17.2 mg/dL (7-18)
[2022-07-09 04:56] LABS: CREATININE 0.7 mg/dL (0.55-1.3)
[2022-07-09 04:57] LABS: BILIRUBIN,TOTAL 0.8 mg/dL (0.2-1); TOT PROT 7.6 g/dl (6.4-8.2)
[2022-07-09] MEDS ORDERED: SODIUM CHLORIDE 1,000 ML IV STA (04:57)
== END 2022-07-09 06:25 | disposition home or self-care (01) ==
LOC: JER 03:40
PROC: 3E0337Z Introduction of Electrolytic and Water Balance Substance into Peripheral Vein, Percutaneous Approach (ICD-10-PCS; principal; 2022-07-09)
DX: R55 Syncope and collapse (principal); J02.0 Streptococcal pharyngitis; W22.09XA Striking against other stationary object, initial encounter; Y92.009 Unspecified place in unspecified non-institutional (private) residence as the place of occurrence of the external cause
CPT/HCPCS: 36415; 70450-TC; 72125-TC; 80053; 84484; 84703; 85025; 93005; 93010; 99285-25